=== PATIENT | male | born 1965 | race Caucasian/White ===

== ENCOUNTER 2018-08-19 10:55 | Outpatient (CLI) | payer OTHER ==
--- NOTE | 2018-08-19 13:52 | RAD ---
FOUR VIEWS OF THE RIGHT KNEE: DATE: 08/19/2018. COMPARISON: None. HISTORY: Bilateral knee pain, knee popping. FINDINGS: There is severe medial compartment narrowing with subchondral sclerosis and osteophyte formation. Th ere is mild lateral compartment narrowing. There is moderate patellofemoral joint space narrowing an d osteophytosis. No acute fracture or dislocation. IMPRESSION: Multicompartment degenerative joint disease. No acute osseous abnormality. POS: [facility]
--- NOTE | 2018-08-19 13:52 | RAD ---
LEFT KNEE FOUR VIEWS: 08/19/2018 HISTORY: Arthritis. Knee popping. COMPARISON: None. FINDINGS: Four view examination of the left knee demonstrates severe medial compartment narrowing with subchond ral sclerosis and osteophyte formation. There is mild osteophyte formation of the lateral femoral co ndyle and lateral tibial plateau. No knee joint effusion, displaced fracture, or dislocation. There is moderate degenerative change of the patellofemoral interspace. IMPRESSION: Multicompartment degenerative joint disease. No acute osseous abnormality. POS: [facility]
== END 2018-08-19 10:56 | disposition home or self-care (01) ==
LOC: SCSRAD 10:55
PROVIDERS: ATTEND Family Medicine
DX: M17.0 Bilateral primary osteoarthritis of knee (principal)

== ENCOUNTER 2018-09-23 16:00 | Inpatient (IN) | payer OTHER, SELFPAY ==
[2018-09-23 16:28] LABS: #Eosinphils 0.2 thou/uL (0.0-0.7); #Monocytes 0.8 thou/uL (0.11-0.59); #Neutrophils 8.4 thou/uL (1.40-6.50); %Basophils 0.4 % (0.0-1.0); %Eosinophils 1.4 % (0.0-10.0); %Lymphocytes 17.6 % (21.0-51.0); %Monocytes 7.2 % (0.0-10.0); %Neutrophils 73.4 % (42.0-75.0); Mean Corpuscular HGB CONC 31.3 g/dL (32.0-36.0); Mean Corpuscular Hemoglobin 29.2 pg (27.0-31.0); Mean Corpuscular Volume 93.3 fL (78.0-98.0); Mean Platelet Volume 7.8 fL (7.4-10.4); Platelet Count 322 thou/uL (130-400); RBC Distribution Width 15.8 % (11.5-14.5); Red Blood Cell (RBC) Count 6.17 mill/uL (4.70-6.10); White Blood Cell (WBC) Count 11.4 thou/uL (4.8-10.8)
[2018-09-23] MEDS ORDERED: Nitroglycerin 2% Ointment 1 INCH/1 GM Packet ONE (16:33)
[2018-09-23] MEDS ORDERED: Furosemide 40 MG/4 ML VIAL ONE (16:33)
[2018-09-23 17:00] LABS: ALT (SGPT) 17 U/L (8-55); AST (SGOT) 42 U/L (5-34); Albumin 3.9 g/dL (3.5-5.0); Alkaline Phosphatase 93 U/L (40-150); Anion Gap 14 mmol/L (10-20); BUN (Urea Nitrogen) 25 mg/dL (8.4-25.7); Bilirubin, Total 0.5 mg/dL (0.2-1.2); CK (CPK) 71 U/L (30-200); Calc. Creatinine Clearance 0 mL/min (70-130); Calcium 9.8 mg/dL (7.8-10.44); Carbon Dioxide 32 mmol/L (22-29); Chloride 95 mmol/L (98-107); Estimated GFR-MDRD Greater than 90; Globulin 4.6 g/dL (2.4-3.5); Glucose 93 mg/dL (70-105); Potassium 5.4 mmol/L (3.5-5.1); Protein, Total 8.5 g/dL (6.0-8.3); Sodium 136 mmol/L (136-145)
--- NOTE | 2018-09-23 17:01 | RAD ---
CHEST ONE VIEW 09/23/18 HISTORY: Chest pain. COMPARISON: None. FINDINGS: Heart size is markedly enlarged. Multifocal right upper lobe and right lower lobe air space opacities . No pneumothorax, large effusion. Mild pulmonary venous congestion. IMPRESSION: 1. Cardiomegaly and mild pulmonary venous congestion. 2. Concern for possible superimposed infection right middle and right lower lobes. 3. Likely a small bilateral pleural effusion. POS: [facility]
[2018-09-23 18:08] LABS: Actual Bicarbonate (HCO3a) 36.4 mEq/L (22-28); Analyzer IN Cardio ER; Base Excess (BEa) 9.5 mEq/L (-2.0 to +3.0); CO2 Tension 56.1 mmHg (35.0-45.0); Calcium, Ionized 1.16 mmol/L (1.12-1.30); Carboxyhemoglobin (COHb) 1.6 gm% (0.0-3.0); Hemoglobin (Hb) 17.7 g/dL (14.0-18.0); O2 Tension (PaO2) 61.4 mmHg (80.0-100.0); Potassium - ABG Lab 4.11 mmol/L (3.70-5.30); pH, Arterial 7.43 (7.35-7.45)
[2018-09-23 18:11] LABS: Puncture Site RRA
[2018-09-23 18:12] LABS: ALV-art Gradient 53.855 (0-20)
[2018-09-23 18:33] LABS: Bilirubin Negative (Negative); Blood, Urine Negative (Negative); Clarity CLEAR (Clear); Glucose, Urine (Dipstick) Negative (Negative); Leukocyte Negative (Negative); Nitrite Negative (Negative); Protein, Urine (Dipstick) 100 mg/dL (Neg-Trace); pH, Urine 7.5 (5.0-9.0)
[2018-09-23 18:36] LABS: Bacteria/HPF None Seen HPF (None Seen); Hyaline Casts/LPF 0-3 HYALINE CAST LPF (0-3 Hyaline); Pathc Cast-AUWi Flag 0.14 (0-2.49); RBC/HPF 0-3 HPF (0-3); Squamous Epithelial 0-3 HPF (0-3); WBC/HPF 0-3 HPF (0-3)
[2018-09-23] MEDS ORDERED: Nitroglycerin 2% Ointment 1 INCH/1 GM Packet TOP SCH (23:59)
[2018-09-24] MEDS ORDERED: Ondansetron ODT 4 MG TAB SL PRN (00:08)
[2018-09-24] MEDS ORDERED: Ondansetron PF 4 MG/2 ML Vial IVP PRN (00:08)
[2018-09-24] MEDS: Meloxicam 15 MG TAB PO SCH (08:33)
[2018-09-24] MEDS: Lisinopril/Hydrochlorothiazide 20 mg/12.5 mg Tablet PO SCH (08:33)
--- NOTE | 2018-09-24 10:55 | HP ---
CHIEF COMPLAINT: Shortness of breath and cough. HISTORY OF PRESENT ILLNESS: The patient is a 53-year-old morbidly obese man, who is admitted to the hospital with several days history of increased shortness of breath and cough, which is mostly nonproductive. He denied any fever or chills. Apparently recently, he developed some nasal congestion and some sinus headache over the last few days. Also, he went to see his doctor, Dr. Hardin, for testicular swelling a few days ago and apparently, his O2 saturation was low in the 80s. When he presented to the emergency room, his pulse oximetry was 86%. He denied any chest pain. He denied any other significant issues at this point. PAST MEDICAL HISTORY: Hypertension. PAST SURGICAL HISTORY: None. MEDICATIONS: 1. Metoprolol succinate 100 mg once a day. 2. Lisinopril and hydrochlorothiazide 10/12.5 mg tablets one a day. 3. Furosemide 20 mg once a day. 4. Meloxicam 15 mg once a day. 5. Tramadol 50 mg, unknown frequency. 6. Amlodipine 10 mg once a day. 7. Benzonatate 100 mg, unknown frequency. ALLERGIES: NONE. SOCIAL HISTORY: He has used to smoke, but quit more than 10 years ago. He drinks socially. He does not use any illicit drugs. FAMILY HISTORY: Mother is healthy. Father had AR. REVIEW OF SYSTEMS: CONSTITUTIONAL: No fever, no chills. EYES: No photophobia. No discharge. ENT: No epistaxis. No stridor. CARDIOVASCULAR: No chest pain. No syncope. RESPIRATORY: Positive for cough and shortness of breath. GASTROINTESTINAL: Negative for diarrhea and constipation. MUSCULOSKELETAL: Positive for bilateral knee pain. SKIN: Negative for rash or erythema. NEUROLOGIC: Negative for focal weakness. Positive for headaches. HEMOLYMPHATIC: Negative for clotting abnormalities. PHYSICAL EXAMINATION: VITAL SIGNS: Blood pressure is 147/70, pulse is 75, respiratory rate is 20, temperature is 98.2, pulse oximetry is 92% on 2 L by nasal cannula. GENERAL: He is very obese man. His BMI is 70.7. HEENT: His head is atraumatic and normocephalic. Eyes are PERRLA. Sclerae are nonicteric. Conjunctivae pinkish. Oral mucosa is moist. NECK: Supple, obese. LUNGS: Clear, but breath sounds diminished at both bases. HEART: S1, S2 distant. No S3. No S4. ABDOMEN: Obese, soft, nontender. EXTREMITIES: 2 to 3+ peripheral edema with venous stasis bilaterally, tender to touch. Pulses not palpable secondary to significant swelling. NEUROLOGICAL EXAMINATION: He is alert and oriented x4. There is no any sensory or motor deficits present. Cranial nerves are intact. LABORATORY DATA: Showed a white count of 11.4, hemoglobin of 18.0, hematocrit 57.6, platelet count 322. ABGs, pH of 7.43, pCO2 56.1, pO2 61.4. A-a gradient 53.8. Sodium of 136, potassium 5.4, chloride 95, CO2 of 32, BUN 25, creatinine 0.77, glucose 93, AST 42, BNP 171, globulin 4.6, total protein 8.5. Urinalysis, more than 100 of protein, 2.0 urobilinogen and the rest of UA within normal limits. EKG showed normal sinus rhythm and incomplete right bundle-branch block. Chest x-ray showed bilateral small pleural effusion and right lower lobe infiltrate. IMPRESSION: 1. Dyspnea with cough, suspicion for right lower lobe pneumonia. The patient received levofloxacin in the emergency room. We will continue that antibiotic 750 mg IV piggyback q.24 hours. 2. Anasarca with pleural effusion bilaterally, questionable congestive heart failure and cardiac etiology. We will start him on Lasix 40 IV push every 12 hours. We will get Cardiology consult and echocardiogram. 3. Hypertension. We will start his home medications. 4. Hyperkalemia, mild. 5. Respiratory failure with hypoxia and hypercapnia. We will obtain Pulmonary consultation. Most likely, he has hypercapnia related to his obesity. Will have albuterol and Atrovent p.r.n. q.4 hours. Job ID: [id number]
[2018-09-24] MEDS: Furosemide 40 MG/4 ML VIAL SLOW IVP SCH (14:17)
--- NOTE | 2018-09-24 16:12 | CON ---
DATE OF CONSULTATION: 09/24/2018 CONSULTING PHYSICIAN: Diogenes Zendejas MD REASON FOR CONSULTATION: Pneumonia versus CHF. HISTORY OF PRESENT ILLNESS: The patient is a 53-year-old male, who came to the hospital with shortness of breath that started just before [place] of last year. He went to his doctor yesterday for swelling in his testicular area. He was noted to be hypoxic and he was subsequently sent over here. He says he has had a low-grade subjective fever. He has been coughing up some purulent secretions. PAST MEDICAL HISTORY: 1. Morbid obesity. 2. Hypertension. PAST SURGICAL HISTORY: None. MEDICATIONS: Prior to admission; 1. Metoprolol 100 mg daily. 2. Lisinopril/hydrochlorothiazide 10/12.5 one tablet daily. 3. Furosemide 20 mg daily. 4. Meloxicam 50 mg daily. 5. Tramadol 50 mg as needed. 6. Amlodipine 10 mg daily. 7. Tessalon Perles 100 mg as needed. ALLERGIES: NONE. SOCIAL HISTORY: Quit smoking about 10 years ago. Occasionally drinks alcohol. He works as a business specialist. Does not use any illicit drugs. FAMILY MEDICAL HISTORY: Remarkable for heart disease in his father. REVIEW OF SYSTEMS: Twelve-point review of systems is negative except for the cough, pulmonary congestion, and testicular swelling. PHYSICAL EXAMINATION: VITAL SIGNS: Temperature 98.1, pulse 81, respirations 16, O2 sat 92% on 3 L, and blood pressure 154/81. The patient is 5 feet and 7 inches, weighs 451 pounds, and BMI of 70.7. HEENT: He has a class IV plus Mallampati airway. NECK: Without adenopathy or JVD. LUNGS: Diminished breath sounds globally, particularly in the bases. CARDIAC: S1 and S2, regular without murmur. ABDOMEN: Morbidly obese. GENITOURINARY: His scrotum is severely edematous. EXTREMITIES: He has 4+ edema from his knees downward. LABORATORY DATA: White blood cell count 11.4, hematocrit 57.6, and platelet count 322. PH of 7.43, pCO2 of 56, and pO2 of 61. Sodium 136, potassium 5.4, chloride 95, CO2 of 32, BUN 25, creatinine 0.7, and glucose 93. IMAGING DATA: His chest x-ray has poor penetration. There may be a right lower lobe infiltrate. ASSESSMENT: 1. Morbid obesity. 2. Obstructive sleep apnea/Pickwickian syndrome. 3. Probable right-sided heart failure with development of anasarca. 4. Possible right lower lobe pneumonia. RECOMMENDATIONS: 1. I agree with treatment of antibiotics. 2. I agree with diuretics. 3. He will need a sleep study performed as an outpatient as his probability of sleep apnea is quite high. 4. I agree with echocardiogram. 5. We will be happy to follow with you on this case. TIME SPENT: Total time spent with the patient, 50 minutes. Job ID: [id number]
[2018-09-24] MEDS: traMADol HCl 50 MG TAB PO PRN (17:52)
[2018-09-24] MEDS: Amlodipine 10 MG TAB PO SCH ×2 (20:23→23:15)
[2018-09-25] MEDS: Furosemide 40 MG/4 ML VIAL SLOW IVP SCH ×2 (05:36→13:55)
[2018-09-25] MEDS: Meloxicam 15 MG TAB PO SCH (08:43)
[2018-09-25] MEDS: Lisinopril/Hydrochlorothiazide 20 mg/12.5 mg Tablet PO SCH (08:43)
[2018-09-25] MEDS: traMADol HCl 50 MG TAB PO PRN (08:43)
[2018-09-25 10:35] LABS: #Eosinphils 0.1 thou/uL (0.0-0.7); #Lymphocytes 1.5 thou/uL (1.20-3.40); #Monocytes 0.6 thou/uL (0.11-0.59); #Neutrophils 9.3 thou/uL (1.40-6.50); %Basophils 0.3 % (0.0-1.0); %Eosinophils 1.1 % (0.0-10.0); %Lymphocytes 13.3 % (21.0-51.0); %Monocytes 5.1 % (0.0-10.0); %Neutrophils 80.1 % (42.0-75.0); Hemoglobin 17.1 g/dL (14.0-18.0); Mean Corpuscular HGB CONC 31.7 g/dL (32.0-36.0); Mean Corpuscular Hemoglobin 29.5 pg (27.0-31.0); Mean Platelet Volume 7.1 fL (7.4-10.4); Platelet Count 270 thou/uL (130-400); RBC Distribution Width 15.4 % (11.5-14.5); Red Blood Cell (RBC) Count 5.78 mill/uL (4.70-6.10); White Blood Cell (WBC) Count 11.5 thou/uL (4.8-10.8)
--- NOTE | 2018-09-25 10:36 | PRG ---
DATE OF SERVICE: 09/25/2018 SUBJECTIVE: Continue to complain of scrotal edema. He states his breathing is better. OBJECTIVE: VITAL SIGNS: His temperature is 97.7, pulse 80, respirations 18, O2 saturation 92% on 4 L, and blood pressure 133/72. Total intake 1200 and output 4100. HEENT: Unremarkable. NECK: No JVD. CHEST: Clear anteriorly. CARDIAC: S1 and S2. Regular. ABDOMEN: Soft. EXTREMITIES: 4+ edema. He also has significant scrotal edema. LABORATORY DATA: No new labs were done today. His echocardiogram showed an EF of about 60% with normal right atrium size and trace tricuspid regurgitation. ASSESSMENT: Anasarca probably related to obesity and diastolic heart dysfunction. I doubt he has much in the way of pneumonia, but it is hard to tell based on his body habitus. PLAN: 1. Continue Levaquin. 2. Emphasize diuresis. 3. Increase activity as tolerated. Job ID: [id number]
[2018-09-25 10:47] LABS: Anion Gap 15 mmol/L (10-20); BUN (Urea Nitrogen) 18 mg/dL (8.4-25.7); Calc. Creatinine Clearance 306 mL/min (70-130); Calcium 9.4 mg/dL (7.8-10.44); Carbon Dioxide 34 mmol/L (22-29); Chloride 93 mmol/L (98-107); Estimated GFR-MDRD Greater than 90; Glucose 123 mg/dL (70-105); Potassium 4.3 mmol/L (3.5-5.1); Sodium 138 mmol/L (136-145)
--- NOTE | 2018-09-25 12:01 | PDOC.CTH ---
Cardiology Progress Note - Subjective The pt seen and examined. No overnight events. No cardiac complaints. - Objective Vital Signs Temp Pulse Resp BP BP Pulse Ox 09/25/18 11:40 68 24 H 09/25/18 09:12 92 L 09/25/18 08:43 80 133/72 09/25/18 08:37 97.7 F 80 18 133/72 92 L 09/25/18 07:42 90 L 09/25/18 07:36 85 24 H 90 L 09/25/18 05:30 98.8 F 74 16 129/73 92 L 09/25/18 02:05 76 20 90 L Weight 440 lb 4.8 oz 09/24/18 09/25/18 09/26/18 06:59 06:59 06:59 Intake Total 110 1200 Output Total 2650 4100 Balance -2540 -2900 - Physical Examination General/Neuro: alert & oriented x3 Neck: no JVD present Lungs: CTA (diminished at bases) Heart: RRR Abdomen: soft Extremities: other: (3-4+ pitting BLE edema with discoloration and oozing) - Telemetry Telemetry Rhythm: SR 60s - Labs Result Diagrams: 09/25/18 10:28 09/25/18 10:28 Troponin/CKMB Troponin I Less than 0.010 ng/mL (< 0.028) 09/23/18 16:18 - Assessment/Plan 1. Acute on Chronic diastolic HF - Echo on 09/24/2018 showed EF 60%. Breathing slightly better today. cont diuretic. 2. HTN - stable 3. s/p bradycardia possible 2/2 sleep apnea - several episodes of bradycardia during last night. May need Sleep study as outpt. MAR reviewed Pt. seen and eval. by me. I agree with the A/P by the APPLIQUER ZIGZAG. Chest clear. RRR. Diuresing. Likely that a good portion of his lower extremity edema is due to his morbid obesity. Review of Systems - Review of Systems Constitutional: reports: no symptoms reported EENTM: reports: no symptoms reported Respiratory: reports: no symptoms reported Cardiac (ROS): reports: no symptoms reported ABD/GI: reports: no symptoms reported : reports: no symptoms reported Musculoskeletal: reports: no symptoms reported Skin: reports: no symptoms reported
--- NOTE | 2018-09-25 12:15 | PRG ---
DATE OF SERVICE: 09/25/2018 SUBJECTIVE: The patient is seen and examined at bedside. He feels slightly better. He goes to the bathroom to urinate a lot. His shortness of breath improved. OBJECTIVE: VITAL SIGNS: Blood pressure is 133/72, pulse 68, temperature 97.7, maximal temperature is 99.6, respiratory rate is 24, and O2 saturation is 92% on 4 L by nasal cannula. HEAD: Atraumatic and normocephalic. EYES: PERRLA. Sclerae are nonicteric. NECK: Supple, obese. LUNGS: Breath sounds diminished at both bases. A few crackles bilaterally at both bases. No wheezing. HEART: S1 and S2, distant. No S3. No S4. ABDOMEN: Obese, nontender. : Scrotum is swollen. EXTREMITIES: Lower extremities presented with massive chronic edema with venous stasis bilaterally, similar. NEUROLOGIC: He is alert and oriented x4. There are no any motor deficits. LABORATORY DATA: Labs showed white count of 11.5, hemoglobin hematocrit 53.7, and platelet count 270,000. Sodium of 138, potassium 4.3, chloride 93, CO2 of 34, glucose 123, and calcium 9.4. Microbiology; urine, no growth in 24 hours. Blood cultures negative x2. Echocardiogram showed ejection fraction of the left ventricle visually estimated at 60%. Normal right ventricle cavity. Mildly dilated left atrium. Normal right atrium. Normal mitral valve. Normal aortic valve. Trace tricuspid regurgitation. IMPRESSION: 1. Dyspnea with cough. It is felt to be secondary to fluid overload and body habitus. His echo looks quite normal. He does not have any congestive heart failure. Also, pneumonia is questionable in the right lower lobe, most likely infiltrate, which was seen on the chest x-ray and is representing some fluid. He diuresed more than 4000 mL over the last 24 hours. He feels better. Cardiology is considering to cut back on diuresis. 2. Anasarca, as mentioned above. 3. Hypertension. 4. Hyperkalemia, mild. 5. Respiratory failure with hypoxia and hypercapnia secondary to #1. Job ID: [id number]
[2018-09-25] MEDS: Amlodipine 10 MG TAB PO SCH (20:02)
--- NOTE | 2018-09-26 02:30 | CON ---
DATE OF CONSULTATION: PRIMARY CARE DOCTOR: Dr. Hardin. PRIMARY PATIENT NAVIGATOR: Dr. Latosha Levine. REFERRING DOCTOR: Walter Enriquez MD REASON FOR CARDIOLOGY CONSULT: Fluid overload. HISTORY OF PRESENT ILLNESS: Mr. Elliott is a 53-year-old male with significant history of hypertension and morbid obesity. The patient started having feeling of cold-like symptoms since last week. The patient followed up with primary care doctor this Wednesday and the patient received a steroid shot and antibiotic, and by the next day, Wednesday, he started having swelling to his scrotum and the patient followed up with primary care doctor again and the patient was instructed to present to the emergency department for fluid overload and worsening of his shortness of breath. The patient received Lasix 40 mg IV push at the ER and Levaquin and aspirin 325 mg p.o.; however, he was still complained of feeling fatigued and productive cough. The patient also complained of worsening of fatigue and dyspnea on exertion. He could not walk more than 4 to 5 feet without taking breath or rest. At night, when he laid down, he noticed he is having worsening cough, but he could sleep on the supine position at night. He also has noticed his leg has more swelling lately since last week. He has a medical history of hypertension; however, he was never admitted to the hospital and he never had a cardiac workup before. PAST MEDICAL HISTORY: 1. Hypertension. 2. Peptic ulcer 25 years ago. PAST SURGICAL HISTORY: None. FAMILY HISTORY: The patient's father had a history of myocardial infarction and stent placement at the age of 60s, and he also had a history of hypertension; otherwise, the patient's mother and a sister have good health. SOCIAL HISTORY: He is and he is living with his . He has two children who are living well. He is a . He is former smoker, he quit 10 years ago. He used to smoke one pack a day. He drinks 1 to 2 times a month. He denied any illicit drug abuse. He is morbidly obese, but he can walk around the house, he can go to the bathroom himself with a cane or walker. He drinks one cup of coffee a day and one can of soda a day. ALLERGIES: NO KNOWN DRUG ALLERGIES. MEDICATIONS: 1. Metoprolol succinate 100 mg once a day. 2. Lisinopril/hydrochlorothiazide 10 mg/12.5 mg once a day. 3. Lasix 20 mg once a day. 4. Meloxicam 15 mg once a day. 5. Tramadol 50 mg every 6 hours as needed. 6. Amlodipine 10 mg once a day. REVIEW OF SYSTEMS: A 12-point review of systems unless otherwise mentioned in the HPI. PHYSICAL EXAMINATION: VITAL SIGNS: Blood pressure 143/83, temperature 98.7, pulse is 70s to 80s, sinus rhythm, respiratory rate 24, O2 saturation 92% with 3 L nasal cannula. The patient's O2 saturation went down to 83 with room air during the assessment. GENERAL: The patient alert and oriented x4, not in acute distress. He is morbidly obese. HEENT: Head; normocephalic, atraumatic. Eyes; extraocular muscle movement intact. ENT and mouth, oral and nasal mucosa are moist without lesion. NECK: Supple. Normal range of motion. No JVD. RESPIRATORY: Clear to auscultate bilaterally, but diminished at the bases, especially on the right side. CARDIOVASCULAR: Regular rate and rhythm. Normal S1 and S2. There is no S3, S4. No significant murmur obviously noted but due to obesity, it is really hard to auscultate. 2+ pulses in bilateral upper and lower extremities, but unable to check pulses in femoral and popliteal due to pain with movement of the leg. ABDOMEN: Obese, soft, nontender. No mass to palpate. Bowel sounds are present. SKIN: Warm and dry. EXTREMITIES: Lower extremities, there is discoloration to the below bilateral knees and blisters open to right lower extremity, but no drainage noted at this moment. MUSCULOSKELETAL: The patient able to move all extremities. They have 2 to 3 nonpitting edema to the bilateral lower extremities. GENITOURINARY: The patient's scrotum has swelling and pain to touch. NEUROLOGIC: The patient is alert and oriented x4. Nonfocal. PSYCHIATRIC: The patient's mood appropriate. LABORATORY DATA: WBC 11.4, hemoglobin 18.0, hematocrit 57.6, and platelets 322. Blood gas; bicarbonate 36.4, pH 7.43, pCO2 of 56.1, PO2 of 61.4. Sodium 136, potassium 5.4, BUN 25, creatinine 0.77, glucose 93, and calcium 9.8. AST 42 and ALT 17. Troponin is negative. BNP is 171.7. IMAGING STUDIES: The patient's chest x-ray shows cardiomegaly and mild pulmonary venous congestion, possible infection to the right middle and lower lobes, and small bilateral pleural effusion. The patient's x-ray to his knee shows multiple compartment degenerative joint disease. ASSESSMENT AND PLAN: 1. New-onset congestive heart failure with edema to the lower extremities; though with the Lasix 40 mg IV push, the patient's output is more than 2600. We would like to continue the current medication. The patient's echocardiogram is ordered and result is pending at this moment. The patient has been on the Lasix 40 mg IV push twice a day and ALEX inhibitor and metoprolol. 2. Possible right lower lobe pneumonia. The patient is on Levaquin, which is managed by primary care doctor. 3. Hypertension. The patient's blood pressure is trending down at this moment with current medication. We would like to continue to monitor. 4. Respiratory failure with hypoxia and hypercapnia. Pulmonary consult has been ordered by primary care doctor. 5. Morbid obesity. Weight management education was given to the patient and the patient would like to lose weight and possible gastric sleeve or some surgery for weight management. Thank you for allowing the Cardiology Service to participate in the care of this patient. We will follow along with the patient's care team and make further evaluation as appropriate. Job ID: [id number]
[2018-09-26] MEDS: Furosemide 40 MG/4 ML VIAL SLOW IVP SCH ×2 (06:05→15:30)
--- NOTE | 2018-09-26 08:12 | CON ---
DATE OF CONSULTATION: 09/24/2018 ADDENDUM: CARDIOLOGY CONSULTATION NOTE: INDICATIONS FOR CONSULTATION: This is a 53-year-old gentleman with shortness of breath due to morbid obesity and also upper respiratory tract infection. He has diffuse lower extremity edema and testicular swelling. We are asked to see him due to the volume overload what appears to be just a combination of morbid obesity and upper respiratory infection as well as possible pneumonia. Please refer to the notes dictated by nurse practitioner, Marisela Hollingsworth, for the past medical history, social history, family history, allergies, review of systems, and medications. This unfortunate 53-year-old gentleman has been short of breath sometime before [place]. He became worse. He was unable to even get to the emergency room. He became somewhat confused and had difficulty to make it to emergency room from the parking lot. He has noticed he has had lower extremity edema in the past, but became worse more recently and has also lower testicular swelling and said that he has had a low-grade fever. He has been coughing and most likely has bronchitis as well as pneumonia. When he came to the hospital here, we were asked to see him due to what was felt to be volume overload. He does have volume overload. This is due to morbid obesity probably and venous insufficiency most likely also associated with his morbid obesity. He also has history of hypertension, but otherwise denies any previous cardiac history. PHYSICAL EXAMINATION: GENERAL: Reveals a morbidly obese gentleman, almost 500 pounds, who is actually awake and alert. He is very pleasant. HEENT AND NECK: I could not hear any carotid bruits. Atraumatic. VITAL SIGNS: His vital signs are stable. Blood pressure was 115/61, temperature was 99.6, heart rate 65 which shows a sinus rhythm, and respiratory rate 24. CHEST: Clear to auscultation. I could not hear any significant rales, rhonchi , or wheezing at this time. CARDIOVASCULAR: Heart sounds are somewhat distant, but he has a normal S1, S2. I cannot hear any significant murmurs, heaves, thrills, bruits, or rubs. ABDOMEN: Morbid obesity. Has stria noted due to the morbid obesity, I cannot palpate any masses. He has no tenderness. He has significant edema of scrotal area and lower extremity edema with discoloration due to chronic venous changes. I cannot palpate pedal pulses. NEUROLOGIC: Neurologically, he appears to be intact. IMPRESSION: 1. Morbid obesity with subsequent problems associated with edema and most likely sleep apnea as well as the well known Pickwickian syndrome due to the morbid obesity. I have advised him to find some way to lose weight. 2. Probable pneumonia which is being treated by antibiotics. 3. Possible right-sided heart failure due to his pulmonary problems and some development of anasarca. We will need to aggressively try to diurese the patient, but also need to be careful not to over diurese him due to his pneumonia, but will need to encourage him at some point time to lose around 200 to 300 pounds. This will be very difficult for the patient. I did suggest that he undergo some type of gastric sleeve procedure in order to lose the weight if at all possible. At this time, I would continue the antibiotics. I would agree with diuresis with the Lasix or any other diuretic. Also I will await the results of the echocardiogram to ensure he does not have a cardiomyopathy. I believe this has already been performed and I will review the studies as soon as possible. 4. Hypertension. This appears to be relatively stable at this time. We will be more than happy to follow the patient with you at this time, but hopefully, he will improve with the present treatment. Job ID: [id number] [facility]
[2018-09-26] MEDS: Meloxicam 15 MG TAB PO SCH (08:47)
[2018-09-26] MEDS: Lisinopril/Hydrochlorothiazide 20 mg/12.5 mg Tablet PO SCH (08:47)
[2018-09-26] MEDS: traMADol HCl 50 MG TAB PO PRN ×2 (08:48→22:30)
--- NOTE | 2018-09-26 10:00 | PRG ---
DATE OF SERVICE: 09/26/2018 SUBJECTIVE: The patient is still short of breath. He is concerned about having to wear the oxygen. He says his scrotum has reduced in size. OBJECTIVE: VITAL SIGNS: Temperature 98.9, pulse 66, blood pressure 138/69, O2 saturation 98%. Intake for 24 hours 250, output 4450. Weight 433 pounds. HEENT: Unremarkable. NECK: No JVD. LUNGS: Diminished breath sounds bilaterally. CARDIAC: S1 and S2. Regular. ABDOMEN: Soft. EXTREMITIES: No edema. LABORATORY DATA: Labs, not done today. ASSESSMENT: Significant anasarca, probably related to cor pulmonale, perhaps sleep apnea, diastolic cardiac dysfunction. PLAN: I think he needs continued IV diuretics and this may need to continue over the next week or so. I would be very adverse to letting him go home until his hypoxemia is better. Job ID: [id number]
[2018-09-26] MEDS: Polyethylene Glycol 3350 17 GM Packet PO SCH (12:04)
--- NOTE | 2018-09-26 14:51 | PRG ---
DATE OF SERVICE: 09/26/2018 SUBJECTIVE: The patient was seen and examined at bedside. He feels somewhat better. His shortness of breath was improved, and he does not have much cough anymore. OBJECTIVE: VITAL SIGNS: Blood pressure is 122/66, pulse is 63, temperature is 98.3, respiratory rate is 20, and O2 saturation is 95% on 4 L by nasal cannula. HEENT: His head is atraumatic and normocephalic. Eyes, PERRLA. Sclerae nonicteric. NECK: Obese. CHEST: Breath sounds diminished at both bases with dullness on percussion at both bases with crackles bilaterally. HEART: S1, S2 distant. No S3. No S4. ABDOMEN: Obese, soft, and nontender. EXTREMITIES: 2+ to 3+ chronic peripheral edema along with chronic venous stasis. LABORATORY DATA: Pending. DIAGNOSTIC DATA: Echocardiogram, as mentioned above. IMPRESSION: 1. Probable diastolic cardiac dysfunction, resulting in significant anasarca. We will continue IV Lasix. We will get PT. 2. Hypercapnic hypoxic respiratory failure. Continue O2 4 L by nasal cannula. 3. Constipation. We will start him on MiraLAX 17 g once a day. 4. Hypertension, stable. We will continue diuresis. We will continue antibiotic for now as recommended by scheduler maintenance. Continue DuoNebs. We will keep checking his BMP and supplement potassium and magnesium. Job ID: [id number]
--- NOTE | 2018-09-26 18:43 | PDOC.CTH ---
Cardiology Progress Note - Subjective The pt seen and examined. No overnight events. No cardiac complaints. He is on 4LNC and SCHWARTZ with mild exertion still. - Objective Vital Signs Temp Pulse Resp BP BP BP Pulse Ox 09/26/18 15:07 76 20 09/26/18 15:00 98.5 F 69 18 101/57 L 95 09/26/18 11:49 68 20 09/26/18 11:39 98.3 F 63 20 122/60 95 09/26/18 08:47 66 138/69 09/26/18 07:17 98.9 F 66 20 138/69 98 09/26/18 07:13 95 09/26/18 07:09 78 20 95 Weight 433 lb 4.8 oz 09/25/18 09/26/18 09/27/18 06:59 06:59 06:59 Intake Total 1200 250 900 Output Total 4100 4450 1850 Balance -2900 -4200 -950 - Physical Examination General/Neuro: alert & oriented x3 Neck: no JVD present Lungs: other: (very diminished at bases) Heart: RRR Abdomen: soft Extremities: other: (4+ pitting BLE edema) - Telemetry Telemetry Rhythm: SR - Labs Result Diagrams: 09/25/18 10:28 09/25/18 10:28 Troponin/CKMB Troponin I Less than 0.010 ng/mL (< 0.028) 09/23/18 16:18 - Assessment/Plan 1. Acute on Chronic diastolic HF - Echo on 09/24/2018 showed EF 60%. Breathing slightly better today. cont diuretic. 2. HTN - stable 3. s/p bradycardia possible 2/2 sleep apnea - several episodes of bradycardia during last night. May need Sleep study as outpt. MAR reviewed * Likely that a good portion of his lower extremity edema is due to his morbid obesity. Pt. seen and eval. by me. I agree with the A/P by the SENIOR TECHNICAL SUPPORT ANALYST. Chest clear. RRR. Edema but improved. Will need to be careful not to overdiurese the pt. Review of Systems - Review of Systems Constitutional: reports: no symptoms reported EENTM: reports: no symptoms reported Respiratory: reports: see HPI Cardiac (ROS): reports: no symptoms reported ABD/GI: reports: no symptoms reported : reports: no symptoms reported Musculoskeletal: reports: no symptoms reported
[2018-09-26] MEDS: Amlodipine 10 MG TAB PO SCH (22:35)
[2018-09-27] MEDS: Furosemide 40 MG/4 ML VIAL SLOW IVP SCH ×2 (05:48→14:05)
[2018-09-27] MEDS: traMADol HCl 50 MG TAB PO PRN ×2 (07:58→16:51)
[2018-09-27] MEDS: Lisinopril/Hydrochlorothiazide 20 mg/12.5 mg Tablet PO SCH (07:59)
[2018-09-27] MEDS: Meloxicam 15 MG TAB PO SCH (07:59)
--- NOTE | 2018-09-27 09:56 | PRG ---
DATE OF SERVICE: SUBJECTIVE: Today, he says he is about the same as he was yesterday. He had no acute complaints. OBJECTIVE: VITAL SIGNS: Temperature 98.5, pulse 81, respirations 18, O2 saturation 94%, and blood pressure 163/80. GENERAL: He is a morbidly obese male in no acute distress. HEENT: Unremarkable. NECK: No JVD. CHEST: Clear. CARDIAC: S1, S2. Regular. ABDOMEN: Soft. EXTREMITIES: Edematous. LABORATORY DATA: Sodium 130, potassium 4.3, BUN 18, creatinine 0.7, glucose 123. White blood cell count 11.5, hematocrit 53.7, and platelet count 270. ASSESSMENT: Anasarca with profound diuresis since admission. PLAN: Continue IV diuretics. He will need a sleep study as an outpatient. Job ID: [id number]
[2018-09-27] MEDS: Polyethylene Glycol 3350 17 GM Packet PO SCH (12:09)
--- NOTE | 2018-09-27 12:14 | PDOC.CTH ---
Cardiology Progress Note - Subjective The pt seen and examined. No overnight events. No cardiac complaints. His BLE edema is improving slowly. - Objective Vital Signs Temp Pulse Resp BP BP Pulse Ox 09/27/18 11:49 98.9 F 72 17 116/56 L 97 09/27/18 10:53 68 20 95 09/27/18 08:00 98.5 F 81 18 163/80 H 94 L 09/27/18 07:59 76 09/27/18 06:59 93 L 09/27/18 06:56 76 20 93 L 09/27/18 04:00 97.8 F 76 18 134/97 H 09/27/18 01:56 77 16 95 Weight 429 lb 09/26/18 09/27/18 09/28/18 06:59 06:59 06:59 Intake Total 250 1274 Output Total 4450 3075 Balance -4200 -1801 - Physical Examination General/Neuro: alert & oriented x3 Neck: no JVD present Lungs: CTA (diminished at bases) Heart: RRR Abdomen: soft Extremities: other: (No edema) - Telemetry Telemetry Rhythm: SR - Labs Result Diagrams: 09/28/18 06:05 09/28/18 06:05 Troponin/CKMB Troponin I Less than 0.010 ng/mL (< 0.028) 09/23/18 16:18 - Assessment/Plan 1. Acute on Chronic diastolic HF - Echo on 09/24/2018 showed EF 60%. Still on 4LNC, but Breathing better today per the pt. cont diuretic. 2. HTN - stable 3. s/p bradycardia possible 2/2 sleep apnea - several episodes of bradycardia during last night. May need Sleep study as outpt. MAR reviewed * Likely that a good portion of his lower extremity edema is due to his morbid obesity. Pt. seen and eval. by me. I agree with the A/P by the OCCUPATIONAL THERAPY DIRECTOR.Continue diuresis. He has lost almost 20#. Review of Systems - Review of Systems Constitutional: reports: no symptoms reported EENTM: reports: no symptoms reported Respiratory: reports: no symptoms reported Cardiac (ROS): reports: no symptoms reported ABD/GI: reports: no symptoms reported : reports: no symptoms reported
--- NOTE | 2018-09-27 16:17 | PDOC.PN ---
- Subjective Encounter Start Date: 09/27/18 Encounter Start Time: 16:15 Gradually improving in regard to BLE and SCHWARTZ. Presently 90% on 4L per NC. Complains of dry and itching BLE, requests lotion. - Objective Vital Signs & Weight: Vital Signs (12 hours) Temp Pulse Pulse Pulse Resp BP BP 09/27/18 15:38 98.8 F 64 15 09/27/18 14:54 73 20 09/27/18 14:16 76 73 129/65 142/69 H 09/27/18 11:49 98.9 F 72 17 09/27/18 10:53 68 20 09/27/18 08:00 98.5 F 81 18 09/27/18 07:59 76 09/27/18 06:59 09/27/18 06:56 76 20 BP Pulse Ox Pulse Ox Pulse Ox 09/27/18 15:38 105/56 L 90 L 09/27/18 14:54 90 L 09/27/18 14:16 92 L 91 L 09/27/18 11:49 116/56 L 97 09/27/18 10:53 95 09/27/18 08:00 163/80 H 94 L 09/27/18 07:59 09/27/18 06:59 93 L 09/27/18 06:56 93 L Weight Weight 429 lb I&O: 09/26/18 09/27/18 09/28/18 06:59 06:59 06:59 Intake Total 250 1274 Output Total 4450 3075 Balance -4200 -1801 Result Diagrams: 09/25/18 10:28 09/25/18 10:28 Dx/Plan (1) Acute on chronic diastolic (congestive) heart failure Code(s): I50.33 - ACUTE ON CHRONIC DIASTOLIC (CONGESTIVE) HEART FAILURE Status : Acute Comment: Continue diuresis. Ordered lab for AM. Echo 09/24/18 EF 60%. Patient presently on levaquin, consider discontinuation tomorrow after Day 5. (2) HTN (hypertension) Code(s): I10 - ESSENTIAL (PRIMARY) HYPERTENSION Status: Acute Qualifiers: Hypertension type: essential hypertension Qualified Code(s): I10 - Essential (primary) hypertension (3) Bradycardia Code(s): R00.1 - BRADYCARDIA, UNSPECIFIED Status: Acute Comment: In context of untreated RICHARD. I also discussed with him the need for sleep study, to reinforce education from other providers. (4) Morbid obesity with BMI of 40.0-44.9, adult Code(s): E66.01 - MORBID (SEVERE) OBESITY DUE TO EXCESS CALORIES; Z68.41 - BODY MASS INDEX (BMI) 40.0-44.9, ADULT Status: Chronic - Plan cont current plan of care, cordon catheter, PT/OT, incentive spirometry, out of bed/ambulate * Consider d/c levaquin tomorrow if ok with Pulmonary. * Lovenox for DVT prophylaxis. * AM labs * Wean oxygen as able, not on home oxygen prior to admission, presently on 4L. * Lotion to dry skin of BLE. Does not look like cellulitis, just chronic hyperemia.
[2018-09-27] MEDS: Amlodipine 10 MG TAB PO SCH (20:05)
[2018-09-28] MEDS: Furosemide 40 MG/4 ML VIAL SLOW IVP SCH ×3 (05:44→16:33)
[2018-09-28] MEDS: traMADol HCl 50 MG TAB PO PRN ×2 (06:25→15:51)
[2018-09-28 06:51] LABS: #Eosinphils 0.4 thou/uL (0.0-0.7); #Lymphocytes 1.2 thou/uL (1.20-3.40); #Monocytes 0.8 thou/uL (0.11-0.59); #Neutrophils 7.9 thou/uL (1.40-6.50); %Basophils 0.4 % (0.0-1.0); %Eosinophils 3.5 % (0.0-10.0); %Lymphocytes 11.7 % (21.0-51.0); %Monocytes 7.9 % (0.0-10.0); %Neutrophils 76.5 % (42.0-75.0); Hemoglobin 15.5 g/dL (14.0-18.0); Mean Corpuscular HGB CONC 31.3 g/dL (32.0-36.0); Mean Corpuscular Hemoglobin 29.2 pg (27.0-31.0); Mean Corpuscular Volume 93.3 fL (78.0-98.0); Mean Platelet Volume 7.8 fL (7.4-10.4); Platelet Count 183 thou/uL (130-400); RBC Distribution Width 14.9 % (11.5-14.5); White Blood Cell (WBC) Count 10.3 thou/uL (4.8-10.8)
[2018-09-28 07:05] LABS: BUN (Urea Nitrogen) 20 mg/dL (8.4-25.7); Calc. Creatinine Clearance 347 mL/min (70-130); Calcium 9.1 mg/dL (7.8-10.44); Estimated GFR-MDRD Greater than 90; Glucose 91 mg/dL (70-105)
[2018-09-28 07:15] LABS: Anion Gap 19 mmol/L (10-20); Carbon Dioxide 29 mmol/L (22-29); Chloride 91 mmol/L (98-107); Potassium 4.3 mmol/L (3.5-5.1); Sodium 135 mmol/L (136-145)
[2018-09-28] MEDS: Enoxaparin Sodium 40 MG/0.4 ML SYRINGE SC SCH (09:30)
[2018-09-28] MEDS: Meloxicam 15 MG TAB PO SCH (09:31)
[2018-09-28] MEDS: Lisinopril/Hydrochlorothiazide 20 mg/12.5 mg Tablet PO SCH (09:31)
--- NOTE | 2018-09-28 10:08 | PRG ---
DATE OF SERVICE: 09/28/2018 SUBJECTIVE: The patient is gradually improving. He had no acute complaints. OBJECTIVE: VITAL SIGNS: Temperature 97.7, pulse 70, respirations 20, O2 saturation 98% on 4 L, and blood pressure 132/63. His weight is 429. Of note, his admission weight was 451. HEENT: Unremarkable. NECK: No JVD. LUNGS: Clear. CARDIAC: S1 and S2, regular. ABDOMEN: Soft. EXTREMITIES: Edematous. LABORATORY DATA: White blood cell count 10.3, hematocrit 49.4, platelet count 183. Sodium 135, potassium 4.3, BUN 20, and creatinine 0.6. ASSESSMENT: 1. Anasarca secondary to diastolic cardiac dysfunction. 2. Probable underlying sleep apnea. PLAN: The patient will need to follow up as an outpatient for sleep study. Continue diuresis with hopes that he can be converted over to oral therapy. No further Pulmonary recommendations. We will sign off the case. Please recall if further assistance needed. Job ID: [id number]
[2018-09-28] MEDS: Polyethylene Glycol 3350 17 GM Packet PO SCH (12:26)
--- NOTE | 2018-09-28 13:32 | PDOC.CTH ---
Cardiology Progress Note - Subjective The pt seen and examined. No overnight events. No cardiac complaints. - Objective Vital Signs Temp Pulse Resp BP BP Pulse Ox 09/28/18 11:44 97.3 F L 68 20 114/58 L 94 L 09/28/18 10:34 72 16 91 L 09/28/18 09:31 70 09/28/18 07:11 97.4 F L 70 20 132/63 98 09/28/18 07:05 90 L 09/28/18 07:04 81 20 90 L 09/28/18 04:00 97.9 F 81 18 133/60 94 L 09/28/18 02:24 77 20 90 L Weight 429 lb 3.2 oz 09/27/18 09/28/18 09/29/18 06:59 06:59 06:59 Intake Total 1274 1604 Output Total 3077 1615 1400 Balance -1923 -1205 -5505 - Physical Examination General/Neuro: alert & oriented x3 Neck: no JVD present Lungs: CTA Heart: RRR Abdomen: soft Extremities: other: (4+ pitting and discoloration to BLE) - Labs Result Diagrams: 09/28/18 06:05 09/28/18 06:05 Troponin/CKMB Troponin I Less than 0.010 ng/mL (< 0.028) 09/23/18 16:18 - Assessment/Plan 1. Acute on Chronic diastolic HF - Echo on 09/24/2018 showed EF 60%. Still on 3LNC, but Breathing better today per the pt. cont diuretic. 2. HTN - stable 3. s/p bradycardia possible 2/2 sleep apnea - several episodes of bradycardia during last night. May need Sleep study as outpt. MAR reviewed * Likely that a good portion of his lower extremity edema is due to his morbid obesity. Pt. seen and eval. by me. I agree with the A/P by the BELT FIXER. Overall cardiac status appears stable. He is not a candidate for other cardiac evaluations. I have suggested he consider drastic means of decreasing his weight. I will sign off. he can f/u in the office in 4-6 weeks. Review of Systems - Review of Systems Constitutional: reports: no symptoms reported EENTM: reports: no symptoms reported Respiratory: reports: no symptoms reported Cardiac (ROS): reports: no symptoms reported ABD/GI: reports: no symptoms reported : reports: no symptoms reported Musculoskeletal: reports: no symptoms reported Skin: reports: no symptoms reported Neurological: reports: no symptoms reported
--- NOTE | 2018-09-28 16:08 | PDOC.PN ---
- Subjective Encounter Start Date: 09/28/18 Encounter Start Time: 16:06 Subjective: feels much better. discussed diagnosis and care plan -: denies nay CP.still easily winded when goe sto bathroom -: afraid to get Johnson removed - Objective MAR Reviewed: Yes Vital Signs & Weight: Vital Signs (12 hours) Temp Pulse Resp BP Pulse Ox 09/28/18 15:33 98.8 F 71 12 116/59 L 94 L 09/28/18 14:48 73 16 91 L 09/28/18 11:44 97.3 F L 68 20 114/58 L 94 L 09/28/18 10:34 72 16 91 L 09/28/18 09:31 70 09/28/18 07:11 97.4 F L 70 20 132/63 98 09/28/18 07:05 90 L 09/28/18 07:04 81 20 90 L Weight Weight 429 lb 3.2 oz I&O: 09/27/18 09/28/18 09/29/18 06:59 06:59 06:59 Intake Total 1274 1604 Output Total 3075 3525 1400 Balance -1801 -1921 -1400 Result Diagrams: 09/28/18 06:05 09/28/18 06:05 Additional Labs: Microbiology 09/23/18 18:18 Nasal swab Influenza Types A,B Direct EIA - Final 09/23/18 17:42 Urine clean catch Urine Culture - Final 09/23/18 17:33 Venous blood - Left Arm Blood Culture - Preliminary NO GROWTH AT 48 HOURS 09/23/18 17:28 Venous blood - Right Arm Blood Culture - Preliminary NO GROWTH AT 48 HOURS Phys Exam - Physical Examination Constitutional: NAD HEENT: PERRLA, moist MMs, sclera anicteric, oral pharynx no lesions Neck: no nodes, no JVD, supple, full ROM Respiratory: no wheezing, no rales, no rhonchi, clear to auscultation bilateral Cardiovascular: RRR, no significant murmur Gastrointestinal: soft, non-tender, no distention, positive bowel sounds Musculoskeletal: no edema, pulses present Neurological: non-focal, normal sensation, moves all 4 limbs Psychiatric: normal affect, A&O x 3 Skin: no rash Dx/Plan (1) Acute on chronic diastolic (congestive) heart failure Code(s): I50.33 - ACUTE ON CHRONIC DIASTOLIC (CONGESTIVE) HEART FAILURE Status : Acute Comment: Continue diuresis. Echo 09/24/18 EF 60%. Patient presently on levaquin, ACC Stage C (2) Bradycardia Code(s): R00.1 - BRADYCARDIA, UNSPECIFIED Status: Acute Comment: In context of untreated RICHARD. I also discussed with him the need for sleep study, to reinforce education from other providers. (3) HTN (hypertension) Code(s): I10 - ESSENTIAL (PRIMARY) HYPERTENSION Status: Acute Qualifiers: Hypertension type: essential hypertension Qualified Code(s): I10 - Essential (primary) hypertension (4) Morbid obesity with BMI of 40.0-44.9, adult Code(s): E66.01 - MORBID (SEVERE) OBESITY DUE TO EXCESS CALORIES; Z68.41 - BODY MASS INDEX (BMI) 40.0-44.9, ADULT Status: Chronic - Plan continue antibiotics, PT/OT, respiratory therapy, incentive spirometry, out of bed/ambulate, DVT proph w/SCDs cont diuresis .excellent response. lost almost over 20lbs in 3 days -: discussed weight loss extensively & need for OP sleep study. -: taper lasix to PO.cont Lisinopril,BB. -: ECHo w EF preserved. -: monitor HR. also on levaquin,but better today * . Review of Systems - Review of Systems Constitutional: negative: fever, chills, sweats, weakness, malaise, other ENT: negative: Ear Pain, Ear Discharge, Nose Pain, Nose Discharge, Nose Congestion, Mouth Pain, Mouth Swelling, Throat Pain, Throat Swelling, Other Respiratory: negative: Cough, Dry, Shortness of Breath, Hemoptysis, SOB with Excertion, Pleuritic Pain, Sputum, Wheezing Cardiovascular: negative: chest pain, palpitations, orthopnea, paroxysmal nocturnal dyspnea, edema, light headedness, other Gastrointestinal: negative: Nausea, Vomiting, Abdominal Pain, Diarrhea, Constipation, Melena, Hematochezia, Other Genitourinary: negative: Dysuria, Frequency, Incontinence, Hematuria, Retention , Other Musculoskeletal: negative: Neck Pain, Shoulder Pain, Arm Pain, Back Pain, Hand Pain, Leg Pain, Foot Pain, Other Neurological: negative: Weakness, Numbness, Incoordination, Change in Speech, Confusion, Seizures, Other - Medications/Allergies Allergies/Adverse Reactions: Allergies Allergy/AdvReac Type Severity Reaction Status Date / Time No Known Drug Allergies Allergy Verified 09/23/18 19:42 Medications: Current Medications Albuterol/Ipratropium (Duoneb) 3 ml NEB [id number] [facility] Last Admin: 09/28/18 14:48 Dose: 3 ml Amlodipine Besylate (Norvasc) 10 mg PO HS [facility] Last Admin: 09/27/18 20:05 Dose: 10 mg Enoxaparin Sodium (Lovenox) 40 mg SC 0900 [facility] Last Admin: 09/28/18 09:30 Dose: 40 mg Furosemide (Lasix) 40 mg SLOW IVP 0600,1400 [facility] Last Admin: 09/28/18 15:38 Dose: 40 mg Lisinopril/HCTZ (Prinizide 20-12.5) 1 tab PO DAILY [facility] Last Admin: 09/28/18 09:31 Dose: 1 tab Levofloxacin 750 mg/ Device 150 mls @ 100 mls/hr IVPB Q24HR [facility] Last Admin: 09/28/18 15:37 Dose: 150 mls Meloxicam (Mobic) 15 mg PO DAILY [facility] Last Admin: 09/28/18 09:31 Dose: 15 mg Metoprolol Succinate (Toprol Xl) 100 mg PO DAILY [facility] Last Admin: 09/28/18 09:31 Dose: 100 mg Polyethylene Glycol (Miralax) 17 gm PO 1200 [facility] Last Admin: 09/28/18 12:26 Dose: 17 gm Sodium Chloride (Flush - Normal Saline) 10 ml IVF Q12HR [facility] Last Admin: 09/28/18 09:31 Dose: 10 ml Sodium Chloride (Flush - Normal Saline) 10 ml IVF PRN PRN PRN Reason: Saline Flush Last Admin: 09/28/18 05:44 Dose: 10 ml Tramadol HCl (Ultram) 50 mg PO Q6H PRN PRN Reason: Pain Last Admin: 09/28/18 15:51 Dose: 50 mg
[2018-09-28] MEDS: Amlodipine 10 MG TAB PO SCH (20:07)
[2018-09-29] MEDS: Furosemide 40 MG TAB PO SCH (08:10)
[2018-09-29] MEDS: Meloxicam 15 MG TAB PO SCH (08:11)
[2018-09-29] MEDS: Lisinopril/Hydrochlorothiazide 20 mg/12.5 mg Tablet PO SCH (08:11)
[2018-09-29] MEDS: Enoxaparin Sodium 40 MG/0.4 ML SYRINGE SC SCH (08:12)
[2018-09-29] MEDS: Polyethylene Glycol 3350 17 GM Packet PO SCH (11:17)
[2018-09-29] MEDS: traMADol HCl 50 MG TAB PO PRN (11:17)
[2018-09-29 13:05] VITALS: BMI 66.2
--- NOTE | 2018-09-29 14:49 | PDOC.PN ---
- Subjective Encounter Start Date: 09/29/18 Encounter Start Time: 14:47 Subjective: feels better but still needing oxygen,does not want home O2 -: stillw leg and scrotal swelling -: RN reports PAT - Objective MAR Reviewed: Yes Vital Signs & Weight: Vital Signs (12 hours) Temp Pulse Resp BP BP BP Pulse Ox 09/29/18 14:20 90 20 09/29/18 11:11 80 20 09/29/18 11:04 98.4 F 67 18 131/71 93 L 09/29/18 08:17 77 20 09/29/18 08:11 78 129/67 09/29/18 08:00 95 09/29/18 07:26 98.3 F 77 18 129/67 95 09/29/18 03:57 98.7 F 81 19 115/57 L 92 L 09/29/18 02:55 75 16 92 L Weight Admit Weight 451 lb Weight 423 lb 1.6 oz I&O: 09/28/18 09/29/18 09/30/18 06:59 06:59 06:59 Intake Total 1604 510 Output Total 3525 4230 Balance -1921 -3720 Result Diagrams: 09/28/18 06:05 09/28/18 06:05 Additional Labs: Microbiology 09/23/18 18:18 Nasal swab Influenza Types A,B Direct EIA - Final 09/23/18 17:42 Urine clean catch Urine Culture - Final 09/23/18 17:33 Venous blood - Left Arm Blood Culture - Final NO GROWTH IN 5 DAYS 09/23/18 17:28 Venous blood - Right Arm Blood Culture - Final NO GROWTH IN 5 DAYS Phys Exam - Physical Examination Constitutional: NAD HEENT: PERRLA, moist MMs, sclera anicteric, oral pharynx no lesions Neck: no nodes, no JVD, supple, full ROM Respiratory: no wheezing, no rales, no rhonchi, clear to auscultation bilateral Cardiovascular: RRR, no significant murmur, no rub Gastrointestinal: soft, non-tender, no distention, positive bowel sounds Musculoskeletal: pulses present, edema present Neurological: non-focal, normal sensation, moves all 4 limbs Psychiatric: normal affect, A&O x 3 Skin: no rash Dx/Plan (1) Acute on chronic diastolic (congestive) heart failure Code(s): I50.33 - ACUTE ON CHRONIC DIASTOLIC (CONGESTIVE) HEART FAILURE Status : Acute Comment: Continue diuresis. Echo 09/24/18 EF 60%. Patient presently on levaquin, ACC Stage C (2) PAT (paroxysmal atrial tachycardia) Status: Acute Comment: due to chr diastolic CHF and RICHARD.HD stable (3) Bradycardia Code(s): R00.1 - BRADYCARDIA, UNSPECIFIED Status: Acute Comment: In context of untreated RICHARD. I also discussed with him the need for sleep study, to reinforce education from other providers. (4) HTN (hypertension) Code(s): I10 - ESSENTIAL (PRIMARY) HYPERTENSION Status: Acute Qualifiers: Hypertension type: essential hypertension Qualified Code(s): I10 - Essential (primary) hypertension (5) Morbid obesity with BMI of 40.0-44.9, adult Code(s): E66.01 - MORBID (SEVERE) OBESITY DUE TO EXCESS CALORIES; Z68.41 - BODY MASS INDEX (BMI) 40.0-44.9, ADULT Status: Chronic - Plan DVT proph w/SCDs cont diuresis . not ready for DC yet -: home o2 eval on day of DC -: wound care as an outpt -: give 1 dose zaroxolyn today and monitor I/O -: life threatning obesity & severe Wt loss advised * . Review of Systems - Review of Systems Constitutional: weakness, malaise. negative: fever, chills, sweats, other Respiratory: SOB with Excertion. negative: Cough, Dry, Shortness of Breath, Hemoptysis, Pleuritic Pain, Sputum, Wheezing Cardiovascular: edema. negative: chest pain, palpitations, orthopnea, paroxysmal nocturnal dyspnea, light headedness, other Gastrointestinal: negative: Nausea, Vomiting, Abdominal Pain, Diarrhea, Constipation, Melena, Hematochezia, Other Genitourinary: negative: Dysuria, Frequency, Incontinence, Hematuria, Retention , Other Musculoskeletal: negative: Neck Pain, Shoulder Pain, Arm Pain, Back Pain, Hand Pain, Leg Pain, Foot Pain, Other Neurological: negative: Weakness, Numbness, Incoordination, Change in Speech, Confusion, Seizures, Other - Medications/Allergies Allergies/Adverse Reactions: Allergies Allergy/AdvReac Type Severity Reaction Status Date / Time No Known Drug Allergies Allergy Verified 09/23/18 19:42 Medications: Current Medications Albuterol/Ipratropium (Duoneb) 3 ml NEB [id number] [facility] Last Admin: 09/29/18 14:20 Dose: 3 ml Amlodipine Besylate (Norvasc) 10 mg PO HS [facility] Last Admin: 09/28/18 20:07 Dose: 10 mg Enoxaparin Sodium (Lovenox) 40 mg SC 0900 [facility] Last Admin: 09/29/18 08:12 Dose: 40 mg Furosemide (Lasix) 40 mg PO DAILY-AC [facility] Last Admin: 09/29/18 08:10 Dose: 40 mg Lisinopril/HCTZ (Prinizide 20-12.5) 1 tab PO DAILY [facility] Last Admin: 09/29/18 08:11 Dose: 1 tab Levofloxacin 750 mg/ Device 150 mls @ 100 mls/hr IVPB Q24HR [facility] Last Admin: 09/28/18 20:06 Dose: 150 mls Meloxicam (Mobic) 15 mg PO DAILY [facility] Last Admin: 09/29/18 08:11 Dose: 15 mg Metoprolol Succinate (Toprol Xl) 100 mg PO DAILY [facility] Last Admin: 09/29/18 08:11 Dose: 100 mg Polyethylene Glycol (Miralax) 17 gm PO 1200 [facility] Last Admin: 09/29/18 11:17 Dose: Not Given Sodium Chloride (Flush - Normal Saline) 10 ml IVF Q12HR [facility] Last Admin: 09/29/18 08:12 Dose: 10 ml Sodium Chloride (Flush - Normal Saline) 10 ml IVF PRN PRN PRN Reason: Saline Flush Last Admin: 09/28/18 05:44 Dose: 10 ml Tramadol HCl (Ultram) 50 mg PO Q6H PRN PRN Reason: Pain Last Admin: 09/29/18 11:17 Dose: 50 mg
[2018-09-29] MEDS ORDERED: Metolazone 5 MG TAB PO SCH (15:15)
[2018-09-29] MEDS: Amlodipine 10 MG TAB PO SCH (21:17)
[2018-09-30] MEDS: Enoxaparin Sodium 40 MG/0.4 ML SYRINGE SC SCH (08:23)
[2018-09-30] MEDS: Lisinopril/Hydrochlorothiazide 20 mg/12.5 mg Tablet PO SCH (08:23)
[2018-09-30] MEDS: Meloxicam 15 MG TAB PO SCH (08:23)
[2018-09-30] MEDS: Furosemide 40 MG TAB PO SCH (08:23)
[2018-09-30] MEDS: traMADol HCl 50 MG TAB PO PRN (08:24)
[2018-09-30] MEDS: Polyethylene Glycol 3350 17 GM Packet PO SCH (12:00)
[2018-09-30 12:12] VITALS: TEMP 98.6
[2018-09-30 12:20] VITALS: BP 117/57
--- NOTE | 2018-10-01 03:24 | DIS ---
DATE OF ADMISSION: 09/23/2018 DATE OF DISCHARGE: 09/30/2018 PRIMARY CARE PHYSICIAN: Denise Giraldo MD DISCHARGE DIAGNOSES: 1. Acute hypoxic respiratory failure. 2. Acute on chronic diastolic congestive heart failure. 3. Paroxysmal atrial tachycardia. 4. Bradycardia and sinus pauses due to obstructive sleep apnea. 5. Morbid obesity. 6. Suspected obstructive sleep apnea. 7. Hypertension. DISCHARGE MEDICATIONS: Resume home medications. New medications; 1. Lasix 40 mg daily. 2. Potassium chloride 10 mEq daily. 3. He will continue metoprolol succinate 100 mg daily. 4. Amlodipine 10 mg daily. 5. Lisinopril/hydrochlorothiazide 20/12.5 mg daily. IN-HOUSE CONSULTATIONS: 1. Cardiology, Dr. Levine. 2. Pulmonary Medicine, Dr. Flanagan. PROCEDURES DONE IN THE HOSPITAL: Transthoracic echocardiogram which shows EF of 60% without any specific abnormality. HISTORY OF PRESENTING ILLNESS: Mr. Elliott is a pleasant 53-year-old male who is morbidly obese with a BMI of 66 with past medical history of hypertension, who presented to emergency room with complaints of shortness of breath, cough, testicular swelling, and low oxygen saturation noted at PCP's office. Upon presentation, his pulse oximetry was 86%. He had some bilateral small pleural effusion, right lower lobe infiltrate. He was suspected to have right lower lobe pneumonia and was admitted on empiric antibiotics. He was also found to have anasarca with some suspicion of congestive heart failure. Diuresis was started. Echo was ordered and Cardiology was consulted. Please see admission history and physical for further details. HOSPITAL COURSE: He was seen both by Cardiology as well as Pulmonary Medicine. He underwent echocardiogram which did not show any specific diastolic or systolic congestive heart failure, but this is suspected. He had anasarca, suspect right-sided heart failure due to morbid obesity leading to obstructive sleep apnea. He was diuresed aggressively and required multiple days to be able to wean off oxygen. His swelling eventually went down. He had bilateral lower extremity swelling with weeping wounds, which were taken care by the Wound Care in the hospital. He is also being set up for outpatient wound care for same. He needs outpatient sleep study and outpatient Pulmonary Medicine followup. Drastic weight reduction is advised and encouraged, and the patient verbalized understanding and showed understanding of the disease process. As of this morning, he is almost back to his baseline. He was checked with and without oxygen and his oxygen saturation with rest and ambulation stayed above 90%. He will be started on Lasix for the next several days. He will follow up with Dr. Levine in the outpatient setting as well as with Dr. Giraldo and Lasix can be tapered off or he may need to continue it for unforeseeable future. He was seen and examined prior to discharge. PHYSICAL EXAMINATION: This morning, VITAL SIGNS: Temperature 98.6, pulse of 71, respirations 18, saturating anywhere from 89% to 96% on room air, blood pressure 130/67. GENERAL: No acute distress. Awake, alert, and oriented x3. CHEST: Evaluation showed no wheezing. No crackles. HEART: Rate and rhythm are regular. ABDOMEN: Morbidly obese abdomen. EXTREMITIES: Show improvement in pitting edema, but he is still significantly edematous in the legs, which is actually an improvement since presentation. LABORATORY DATA: BNP 171. Serum chemistries and CBC unremarkable prior to discharge. He will follow up with primary care physician as well as Cardiology and Pulmonary Medicine in the outpatient setting. Cardiac rehab and wound care has been set up for him. TOTAL TIME SPENT: 35 minutes. Job ID: [id number]
--- NOTE | 2018-10-01 22:59 | EKG ---
Test Reason : SOB Blood Pressure : / mmHG Vent. Rate : 065 BPM Atrial Rate : 065 BPM P-R Int : 124 ms QRS Dur : 114 ms QT Int : 422 ms P-R-T Axes : 031 001 029 degrees QTc Int : 438 ms Normal sinus rhythm with sinus arrhythmia Incomplete right bundle branch block Anterior infarct , age undetermined Abnormal ECG Confirmed by MAVIS BATRES, KIMBER ([id number]), scientific publications editor YANCI LEMONS ([id number]) on 10/01/2018 10:58:52 PM Referred By: MAVIS Confirmed By:KIMBER GAMBLE MD
== END 2018-09-30 16:42 | disposition home or self-care (01) | DRG 291 ==
LOC: ERS 16:00 → T4-B 17:14 → 2SW 09-24 11:34 → 2NO 09-29 16:11
PROVIDERS: ADMIT Family Medicine; ATTEND Family Medicine
DX: I11.0 Hypertensive heart disease with heart failure (principal); J96.01 Acute respiratory failure with hypoxia; J96.02 Acute respiratory failure with hypercapnia; I47.1 Supraventricular tachycardia; Z68.44 Body mass index [BMI] 60.0-69.9, adult; E66.2 Morbid (severe) obesity with alveolar hypoventilation; I50.33 Acute on chronic diastolic (congestive) heart failure; E87.5 Hyperkalemia; K59.00 Constipation, unspecified; R00.1 Bradycardia, unspecified; Z87.891 Personal history of nicotine dependence; Z79.899 Other long term (current) drug therapy
CPT/HCPCS: 36415; 51702; 71045; 80048; 80053; 81003; 81015; 82550; 82805; 83690; 83880; 84484; 85025; 87040; 87086; 87804; 93005; 93306; 93798; 94760; 96365; 96375; J1650; J1940; J1956; J7620

== ENCOUNTER 2018-10-12 08:47 | Outpatient (CLI) | payer OTHER ==
--- NOTE | 2018-10-12 10:08 | PRG ---
DATE OF SERVICE: 10/12/2018 HISTORY: Mr. Randall Elliott is a very pleasant 53-year-old gentleman, who presents to the Wound Center for evaluation of multiple ulcerations of the right and left lower legs. The patient was recently discharged from [facility] after admission for dyspnea. During the patient's hospital stay, he was seen by wound care for bilateral lower extremity swelling with weeping wounds. The patient stated previously, that he had edema and blisters of the right and left lower legs for approximately 4 years. After being seen in the Wound Center, the ulcerations were dressed with Silverlon, Webril, and the 3M Coban 2 Layer Compression System. PHYSICAL EXAMINATION: VITAL SIGNS: Temperature 98.0, pulse 80, and blood pressure 143/71. EXTREMITIES: Multiple small superficial ulcerations of the right and left lower legs are present. Granulation tissue is present within the margins of each wound. No purulent drainage is associated with any of the wounds. No erythema of the skin surrounding any of the wounds is present. No maceration of the skin of the periwound of any of the wounds is noted. A dorsalis pedis pulse is palpable on the right and on the left. Edema of the right and left lower extremities is present on exam today. Circumferences of the right lower extremity at the foot, ankle, and calf are 28 cm, 31 cm, and 50 cm. Circumferences of the left lower extremity at the foot, ankle, and calf are 29 cm, 33.5 cm, and 50 cm. ASSESSMENT AND PLAN: 1. Chronic venous hypertension with ulcers. Silverlon, Webril, and the 3M Coban 2 Layer Compression System will be applied to the ulcerations today. I will see Mr. Elliott again in 1 week. 2. Hypertension. 3. History of peptic ulcer disease. 4. Congestive heart failure, diastolic. Job ID: [id number]
[2018-10-12] MEDS ORDERED: Sodium Chloride 0.9% 15 ML NEB ONE ×2 (15:31→20:13)
== END 2018-10-12 08:48 | disposition home or self-care (01) ==
LOC: WCC 08:47
PROVIDERS: ATTEND Family Medicine
DX: I87.313 Chronic venous hypertension (idiopathic) with ulcer of bilateral lower extremity (principal); L97.929 Non-pressure chronic ulcer of unspecified part of left lower leg with unspecified severity; L97.919 Non-pressure chronic ulcer of unspecified part of right lower leg with unspecified severity; I11.0 Hypertensive heart disease with heart failure; I50.30 Unspecified diastolic (congestive) heart failure
CPT/HCPCS: A4218

== ENCOUNTER 2018-10-20 09:34 | Outpatient (CLI) | payer OTHER ==
--- NOTE | 2018-10-20 11:15 | PRG ---
DATE OF SERVICE: 10/20/2018 HISTORY: Mr. Randall Elliott is a very pleasant 53-year-old gentleman, who presents to the Wound Center for evaluation of multiple ulcerations of the right and left lower legs. The patient was recently discharged from [facility] after admission for dyspnea. During the patient's hospital stay, he was seen by wound care for bilateral lower extremity swelling with weeping wounds. The patient stated previously, that he had had edema and blisters of the right and left lower legs for approximately 4 years. After being seen in the Wound Center, the ulcerations were dressed with Silverlon, Webril, and the 3M Coban 2 Layer Compression System. The patient has been receiving the preceding dressing changes on a weekly basis. PHYSICAL EXAMINATION: VITAL SIGNS: Temperature 97.9, pulse 70, and blood pressure 131/70. EXTREMITIES: An ulceration is present over the right posterior lower leg, which measures approximately 2.5 x 2.4 cm. An ulceration is present over the left anterior lower leg, which measures approximately 0.6 x 1.5 cm. Granulation tissue is present within the margins of each wound. No purulent drainage is associated with either wound. No erythema of the skin surrounding either wound is present. No maceration of the skin of the periwound of either wound is noted. A dorsalis pedis pulse is palpable on the right and on the left. Edema of the right and left lower extremities is present on exam today. Circumferences of the right lower extremity at the foot, ankle, calf, and knee are 28.5 cm, 32 cm, 54 cm, and 48 cm. Circumferences of the left lower extremity at the foot, ankle, calf, and knee are 28 cm, 34 cm, 52 cm, and 49 cm. Hyperpigmentation of the skin of the right and left lower legs is present secondary to hemosiderin deposition. ASSESSMENT AND PLAN: 1. Chronic venous hypertension with ulcers. Silverlon, Webril, and the 3M Coban 2 Layer Compression System will be applied to the ulcerations today. I will see Mr. Elliott again in 1 week. Arrangements will also be made for the home delivery of compression garments. 2. Lymphedema tarda. Arrangements will be made for the initiation of in-home lymphedema therapy. The patient continues to have lymphedema despite treatment with serial compression wraps and elevation. 3. Hypertension. 4. History of peptic ulcer disease. 5. Congestive heart failure, diastolic. Job ID: [id number]
== END 2018-10-20 09:35 | disposition home or self-care (01) ==
LOC: WCC 09:34
PROVIDERS: ATTEND Family Medicine
DX: I87.311 Chronic venous hypertension (idiopathic) with ulcer of right lower extremity (principal); L97.919 Non-pressure chronic ulcer of unspecified part of right lower leg with unspecified severity; I89.0 Lymphedema, not elsewhere classified; I11.0 Hypertensive heart disease with heart failure; I50.30 Unspecified diastolic (congestive) heart failure

== ENCOUNTER 2018-10-26 09:41 | Outpatient (CLI) | payer OTHER ==
--- NOTE | 2018-10-26 10:26 | PRG ---
DATE OF SERVICE: 10/26/2018 SUBJECTIVE: Mr. Randall Elliott is a very pleasant 53-year-old gentleman, who presents to the Wound Center for evaluation of multiple ulcerations of the right and left lower legs. The patient was recently discharged from [facility] after admission for dyspnea. During the patient's hospital stay, he was seen by Wound Care for bilateral lower extremity swelling with weeping wounds. The patient previously stated that he had edema and blisters of the right and left lower legs for approximately four years. After being seen in the Wound Center, the ulcerations were dressed with Silverlon, Webril, and the 3M Coban 2 Layer Compression System. The patient has been receiving the preceding dressing changes on a weekly basis. OBJECTIVE: VITAL SIGNS: Temperature 98.0, pulse 67, respirations 23, and blood pressure 122/80. EXTREMITIES: An ulceration is present over the right posterior lower leg, which measures approximately 5.0 x 2.8 cm. An ulceration is present over the left anterior lower leg, which measures approximately 0.9 x 1.0 cm. Granulation tissue is present within the margins of each wound. No purulent drainage is associated with either wound. No erythema of the skin surrounding either wound is present. No maceration of the skin of the periwound of either wound is noted. A dorsalis pedis pulse is palpable on the right and on the left. Edema of the right and left lower extremities is present on exam today. Circumferences of the right lower extremity at the ankle, calf, and knee are 32 cm, 54.5 cm, and 48 cm. Circumferences of the left lower extremity at the ankle, calf, and knee are 32 cm, 52.5 cm, and 47.5 cm. Hyperpigmentation of the skin of the right and left lower legs is present secondary to hemosiderin deposition. ASSESSMENT AND PLAN: 1. Chronic venous hypertension with ulcers. Silverlon, Webril, and the 3M Coban 2 Layer Compression System will be applied to the ulcerations today. I will see Mr. Elliott again in 1 week. Arrangements will continue for the home delivery of compression garments. 2. Lymphedema tarda. Arrangements will also continue for the initiation of in-home lymphedema therapy. The patient continues to have lymphedema despite treatment with serial compression wraps and elevation. 3. Hypertension. 4. History of peptic ulcer disease. 5. Congestive heart failure, diastolic. Job ID: [id number]
== END 2018-10-26 09:42 | disposition home or self-care (01) ==
LOC: WCC 09:41
PROVIDERS: ATTEND Family Medicine
DX: I87.311 Chronic venous hypertension (idiopathic) with ulcer of right lower extremity (principal); L97.919 Non-pressure chronic ulcer of unspecified part of right lower leg with unspecified severity; I50.30 Unspecified diastolic (congestive) heart failure; I89.0 Lymphedema, not elsewhere classified; Z87.11 Personal history of peptic ulcer disease
CPT/HCPCS: 97602

== ENCOUNTER 2018-11-02 10:32 | Outpatient (CLI) | payer OTHER ==
--- NOTE | 2018-11-02 12:08 | PRG ---
DATE OF SERVICE: 11/02/2018 HISTORY: Mr. Randall Elliott is a very pleasant 53-year-old gentleman, who presents to the Wound Center for evaluation of multiple ulcerations of the right and left lower legs. The patient was recently discharged from [facility] after admission for dyspnea. During the patient's hospital stay, he was seen by Wound Care for bilateral lower extremity swelling with weeping wounds. The patient previously stated that he had had edema and blisters of the right and left lower legs for approximately 4 years. After being seen in the Wound Center, the ulcerations were dressed with Silverlon, Webril, and the 3M Coban 2 Layer Compression System. The patient received the preceding dressing changes on a weekly basis. PHYSICAL EXAMINATION: VITAL SIGNS: Temperature 98.1, pulse 75, blood pressure 142/74. EXTREMITIES: An ulceration is present over the right posterior lower leg, which measures approximately 0.7 x 0.7 cm. An ulceration is present over the left anterior lower leg, which measures approximately 2.0 x 1.8 cm. Granulation tissue is present within the margins of each wound. No purulent drainage is associated with either wound. No erythema of the skin surrounding either wound is present. No maceration of the skin of the periwound of either wound is noted. Edema of the right and left lower extremities is present on exam today. Circumferences of the right lower extremity at the foot, ankle, calf, and knee are 29 cm, 32 cm, 55.5 cm, and 49.5 cm. Circumferences of the left lower extremity at the foot, ankle, calf, and knee are 27.5 cm, 33.5 cm, 51 cm, and 48.5 cm. ASSESSMENT AND PLAN: 1. Chronic venous hypertension with ulcers. The patient has received FarrowWraps, which will be applied to the right and left feet and lower extremities today. Silvercel will be applied to the open wounds followed by gauze or Mepilex border. 2. Lymphedema tarda. Arrangements will continue for the initiation of in-home lymphedema therapy. 3. Hypertension. 4. History of peptic ulcer disease. 5. Congestive heart failure. Job ID: [id number]
[2018-11-02] MEDS ORDERED: Sodium Chloride 0.9% 15 ML NEB ONE (16:04)
== END 2018-11-02 10:33 | disposition home or self-care (01) ==
LOC: WCC 10:32
PROVIDERS: ATTEND Family Medicine
DX: I87.313 Chronic venous hypertension (idiopathic) with ulcer of bilateral lower extremity (principal); I10 Essential (primary) hypertension; I89.0 Lymphedema, not elsewhere classified; I48.0 Paroxysmal atrial fibrillation; I50.9 Heart failure, unspecified; Z87.11 Personal history of peptic ulcer disease
CPT/HCPCS: 97602

== ENCOUNTER 2018-11-09 10:39 | Outpatient (CLI) | payer OTHER ==
--- NOTE | 2018-11-09 11:16 | PRG ---
DATE OF SERVICE: 11/09/2018 HISTORY: Mr. Randall Elliott is a very pleasant 53-year-old gentleman, who presents to the Wound Center for evaluation of multiple ulcerations of the right and left lower legs. The patient was recently discharged from [facility] after admission for dyspnea. During the patient's hospital stay, he was seen by wound care for bilateral lower extremity swelling with weeping wounds. The patient previously stated that he had had edema and blisters of the right and left lower legs for approximately 4 years. After being seen in the Wound Center, the ulcerations were dressed with Silverlon, Webril and the 3M Coban 2 Layer Compression System. The patient received the preceding dressing changes on a weekly basis. Since the patient's last visit, Mr. Elliott has been utilizing FarrowWraps as previously prescribed. PHYSICAL EXAMINATION: VITAL SIGNS: Temperature 98.1, pulse 73, and blood pressure 171/80. EXTREMITIES: All ulcerations of the right and left lower legs have healed completely. The edema of the right and left lower extremities have significantly decreased since the patient's initial presentation to the Wound Center. ASSESSMENT AND PLAN: 1. Chronic venous hypertension with ulcers. As stated above, the ulcerations of the right and left lower legs have healed completely. The patient has been instructed to continue to utilize his FarrowWraps as previously prescribed. 2. Lymphedema tarda. Arrangements will continue for the initiation of in-home lymphedema therapy. The patient has been asked to return to clinic on 11/24/2018. 3. Hypertension. 4. History of peptic ulcer disease. 5. Congestive heart failure. Job ID: [id number]
== END 2018-11-09 10:40 | disposition home or self-care (01) ==
LOC: WCC 10:39
PROVIDERS: ATTEND Family Medicine
DX: I87.333 Chronic venous hypertension (idiopathic) with ulcer and inflammation of bilateral lower extremity (principal); I50.9 Heart failure, unspecified; I10 Essential (primary) hypertension; Z87.11 Personal history of peptic ulcer disease

== ENCOUNTER 2019-07-18 13:11 | Outpatient (CLI) | payer OTHER ==
--- NOTE | 2019-07-18 13:41 | RAD ---
Exam: Chest 2 views HISTORY:Hypoxia Comparison: 09/23/2018 FINDINGS: Lungs: Interstitial prominence bilaterally Cardiac silhouette:Enlarged cardiac silhouette Pulmonary vessels: Prominent central pulmonary vasculature Pleural Spaces: Clear Pneumothorax: None Osseous abnormalities: None of acuity. IMPRESSION: Mild fluid overload, which may relate to CHF. Correlate clinically.
== END 2019-07-18 13:12 | disposition home or self-care (01) ==
LOC: SCSRAD 13:11
PROVIDERS: ATTEND Family Medicine
DX: R05 Cough (principal)
CPT/HCPCS: 71046

== ENCOUNTER 2019-09-09 20:30 | Outpatient (CLI) | payer OTHER | END 2019-09-09 20:31 | LOC: SLEEPLAB 20:30 | PROVIDERS: ATTEND Family Medicine | DX: G47.33 Obstructive sleep apnea (adult) (pediatric) (principal); R53.83 Other fatigue; E66.9 Obesity, unspecified; I10 Essential (primary) hypertension; R06.83 Snoring; R09.02 Hypoxemia | CPT/HCPCS: 95811 ==

== ENCOUNTER 2019-09-10 13:28 | Inpatient (IN) | payer OTHER ==
[2019-09-10 14:09] LABS: Base Excess-Venous 7.4 mmol/L (-2.0 to 3.0); Bicarbonate (HCO3v) 37.2 mmol/L (22.0-28.0); CO2 Tension (PvCO2) 70.1 mmHg (40.0-50.0); Calcium, Ionized 1.12 mmol/L (See Comments:); Chloride 96 mmol/L (98-107); Hemoglobin - Calc 18.7 g/dL (14.0-18.0); Potassium 4.3 mmol/L (3.5-5.1); Sodium 141 mmol/L (138-145); T. Carbon Dioxide 39.3 mmol/L (22.0-28.0)
[2019-09-10 14:10] LABS: #Basophils 0.1 thou/uL (0.0-0.2); #Eosinphils 0.1 thou/uL (0.0-0.7); #Lymphocytes 1.6 thou/uL (1.20-3.40); #Monocytes 0.8 thou/uL (0.11-0.59); #Neutrophils 6.6 thou/uL (1.40-6.50); %Basophils 0.8 % (0.0-1.0); %Eosinophils 1.5 % (0.0-10.0); %Lymphocytes 17.6 % (21.0-51.0); %Monocytes 8.5 % (0.0-10.0); %Neutrophils 71.6 % (42.0-75.0); Hemoglobin 16.6 g/dL (14.0-18.0); Mean Corpuscular HGB CONC 31.3 g/dL (32.0-36.0); Mean Corpuscular Hemoglobin 29.4 pg (27.0-31.0); Mean Platelet Volume 8.1 fL (7.4-10.4); Platelet Count 233 thou/uL (130-400); RBC Distribution Width 15.1 % (11.5-14.5); Red Blood Cell (RBC) Count 5.62 mill/uL (4.70-6.10); White Blood Cell (WBC) Count 9.2 thou/uL (4.8-10.8)
[2019-09-10 14:48] LABS: CKMB 1.7 ng/mL (0-6.6)
[2019-09-10 14:50] LABS: ALT (SGPT) 14 U/L (8-55); AST (SGOT) 22 U/L (5-34); Albumin 3.9 g/dL (3.5-5.0); Alkaline Phosphatase 76 U/L (40-110); Anion Gap 15 mmol/L (10-20); BUN (Urea Nitrogen) 26 mg/dL (8.4-25.7); Bilirubin, Total 0.6 mg/dL (0.2-1.2); Calc. Creatinine Clearance 0 mL/min (70-130); Calcium 9.3 mg/dL (7.8-10.44); Carbon Dioxide 35 mmol/L (22-29); Chloride 97 mmol/L (98-107); Estimated GFR-MDRD Greater than 90; Globulin 3.2 g/dL (2.4-3.5); Glucose 95 mg/dL (70-105); Potassium 4.6 mmol/L (3.5-5.1); Protein, Total 7.1 g/dL (6.0-8.3); Sodium 142 mmol/L (136-145)
[2019-09-10] MEDS ORDERED: hydrALAZINE 20 MG/ML VIAL ONE (15:58)
[2019-09-10 17:20] LABS: Actual Bicarbonate (HCO3a) 32.6 mEq/L (22-28); Analyzer IN Cardio ER; Base Excess (BEa) 7.5 mEq/L (-2.0 to +3.0); CO2 Tension 46.5 mmHg (35.0-45.0); Calcium, Ionized 1.14 mmol/L (1.12-1.30); Carboxyhemoglobin (COHb) 1.3 gm% (0.0-3.0); Hemoglobin (Hb) 17.4 g/dL (14.0-18.0); O2 Tension (PaO2) 71.5 mmHg (80.0-100.0); Potassium - ABG Lab 4.02 mmol/L (3.70-5.30); pH, Arterial 7.46 (7.35-7.45)
[2019-09-10 17:22] LABS: ALV-art Gradient 127.055 (0-20); Puncture Site RRA
--- NOTE | 2019-09-10 20:25 | RAD ---
PORTABLE CHEST: History: Shortness of breath. Comparison: 09-23-18 FINDINGS: Heart size is enlarged with mild vascular engorgement but no overt edema. IMPRESSION: Cardiomegaly with mild vascular engorgement. POS: RAMILA
[2019-09-10] MEDS ORDERED: Aspirin Chewable 81 MG TAB ONE (22:40)
--- NOTE | 2019-09-11 00:18 | HP ---
PRIMARY CARE PHYSICIAN: Denise Giraldo MD CHIEF COMPLAINT: Low oxygen level. HISTORY OF PRESENT ILLNESS: Mr. Elliott is a pleasant 54-year-old gentleman, who has a history of hypertension and osteoarthritis. He says that he had been putting off getting a sleep study for about 4 to 5 years and finally went to do the sleep study. He says that they woke him up while he was completing the study and said that his oxygen level was low like in the 70s. He felt that this was odd since when he woke up this time, he said he had felt better than he had had in the long time. He says usually he feels extremely tired. However, he does note that in the last few weeks he has been getting "really short of breath," especially when he is moving around. He denies any chest pain, no palpitations, but has noted increasing lower extremity edema. He denies any other symptoms such as nausea, vomiting. No abdominal pain. However, since his oxygen level was so low, the ER physician wanted to place him in observation. REVIEW OF SYSTEMS: CONSTITUTIONAL: There are no fevers, chills, or night sweats. No weight loss. HEENT: He denies any headaches. No dizziness. No visual changes. No sore throat or rhinorrhea, or neck pain. No adenopathy. PULMONARY: No hemoptysis. No cough. No wheezing. CARDIOVASCULAR: As in the history of present illness. GASTROINTESTINAL: No nausea. No vomiting. No change in bowels. GENITOURINARY: No urinary frequency or hematuria. No hesitancy. NEUROLOGIC: No focal weakness or numbness. No seizures. MUSCULOSKELETAL: No muscle pains, weakness, or joint pains. SKIN AND INTEGUMENT: No skin changes. No rash. PAST MEDICAL HISTORY: Significant for hypertension and osteoarthritis. PAST SURGICAL HISTORY: No surgeries. ALLERGIES: NO KNOWN DRUG ALLERGIES. SOCIAL HISTORY: He is a former smoker. He quit 10 years ago. He occasionally drinks alcohol. He is , has 2 children. He works as a commercial lending assistant. FAMILY HISTORY: No history of any heritable diseases. MEDICATIONS: Include; 1. Lisinopril/hydrochlorothiazide 20/12.5, 1 tablet daily. 2. Metoprolol succinate extended release 100 mg daily. 3. Furosemide 20 mg daily. 4. Meloxicam 15 mg daily. 5. Tramadol 50 mg as directed. 6. Amlodipine 10 mg once a day. PHYSICAL EXAMINATION: GENERAL: He is alert and oriented. He appears to be in no acute distress. He is morbidly obese. VITAL SIGNS: His weight is 202 kg. HEENT: Pupils are equal, round, and reactive. Extraocular muscles are intact. His sclerae anicteric. Throat, no erythema, no exudates. NECK: No adenopathy. No bruits. LUNGS: Clear to auscultation. There is no wheezing. No rales. No rhonchi. CARDIOVASCULAR: He has a normal S1, S2. He does have a grade 2/6 systolic murmur. ABDOMEN: Obese. It is soft, nontender, and nondistended. Positive for bowel sounds. No rebound or guarding. No organomegaly. EXTREMITIES: He has massive lower extremity edema, which is pitting. He also has chronic venous stasis changes. He has barely palpable dorsalis pedis pulses. NEUROLOGIC: The exam is nonfocal. LABORATORY DATA: The white blood cell count is 9.2, hemoglobin 16.6, hematocrit is 52.8, and platelet count is 233. Sodium is 141, potassium 4.3, chloride is 96, CO2 is 35, BUN of 26, creatinine 0.81, glucose is 95, and troponin is less than 0.020. ASSESSMENT: 1. This is a 54-year-old gentleman, who is being admitted and placed in observation for hypoxemia. This is in the setting of severe life-threatening obesity and likely obesity hypoventilation syndrome. The concern is that he may require oxygen at home until he can be stabilized with regard to his obesity hypoventilation. He may also have some mild diastolic heart failure as he does appear to be volume overloaded. He had an echo done back in September 2018, in which the ejection fraction was estimated at 60%. a. The patient will be diuresed overnight. b. We will trend his cardiac enzymes. c. Place him on supplemental oxygen. d. Reassess his need for oxygen in the a.m. Should he still be hypoxic on room air, then we will consult Case Management to arrange home oxygen. 2. Hypertension. Currently, his blood pressure is elevated. We will restart his home medications as well as p.r.n. medications and titrate his blood pressure medications if needed. 3. For severe morbid obesity, we will consult the dietitian for calorie-restricted diet and the patient was counseled on the dangers of his current weight. Job ID: [id number]
[2019-09-11] MEDS ORDERED: hydrALAZINE 20 MG/ML VIAL SLOW IVP PRN (01:33)
[2019-09-11] MEDS ORDERED: Amlodipine 10 MG TAB PO SCH (02:00)
[2019-09-11] MEDS: Azelastine 137 MCG/Spray 30 ML NS SCH ×3 (02:07→21:01)
[2019-09-11 02:22] LABS: Troponin I 0.057 ng/mL (< 0.028)
[2019-09-11 05:27] LABS: #Basophils 0.1 thou/uL (0.0-0.2); #Eosinphils 0.2 thou/uL (0.0-0.7); #Monocytes 0.9 thou/uL (0.11-0.59); #Neutrophils 6.7 thou/uL (1.40-6.50); %Basophils 0.7 % (0.0-1.0); %Eosinophils 1.7 % (0.0-10.0); %Lymphocytes 20.1 % (21.0-51.0); %Neutrophils 68.6 % (42.0-75.0); Hemoglobin 15.8 g/dL (14.0-18.0); Mean Corpuscular HGB CONC 31.4 g/dL (32.0-36.0); Mean Corpuscular Hemoglobin 29.4 pg (27.0-31.0); Mean Corpuscular Volume 93.6 fL (78.0-98.0); Mean Platelet Volume 8.1 fL (7.4-10.4); Platelet Count 227 thou/uL (130-400); Red Blood Cell (RBC) Count 5.38 mill/uL (4.70-6.10); White Blood Cell (WBC) Count 9.7 thou/uL (4.8-10.8)
[2019-09-11 05:43] LABS: Anion Gap 11 mmol/L (10-20); BUN (Urea Nitrogen) 22 mg/dL (8.4-25.7); Calc. Creatinine Clearance 302 mL/min (70-130); Calcium 8.9 mg/dL (7.8-10.44); Carbon Dioxide 32 mmol/L (22-29); Chloride 98 mmol/L (98-107); Estimated GFR-MDRD Greater than 90; Glucose 85 mg/dL (70-105); Potassium 4.1 mmol/L (3.5-5.1); Sodium 137 mmol/L (136-145)
[2019-09-11] MEDS: Furosemide 40 MG/4 ML VIAL SLOW IVP SCH ×2 (05:45→13:31)
[2019-09-11] MEDS ORDERED: Furosemide 40 MG/4 ML VIAL SLOW IVP SCH (06:00)
[2019-09-11] MEDS ORDERED: Furosemide 40 MG TAB PO SCH (07:30)
[2019-09-11] MEDS: Enoxaparin Sodium 40 MG/0.4 ML SYRINGE SC SCH (08:39)
[2019-09-11] MEDS: Potassium Chloride 20 MEQ TAB PO SCH (08:39)
[2019-09-11] MEDS: Famotidine 20 MG TAB PO SCH ×2 (08:39→21:00)
[2019-09-11] MEDS: Lisinopril/Hydrochlorothiazide 20 mg/12.5 mg Tablet PO SCH (08:39)
[2019-09-11] MEDS: Meloxicam 15 MG TAB PO SCH (08:39)
[2019-09-11] MEDS: traMADol HCl 50 MG TAB PO PRN ×2 (08:42→14:49)
--- NOTE | 2019-09-11 11:56 | ULT ---
EXAM: Bilateral lower extremity venous duplex: Deep veins evaluated with color Doppler, spectral analysis, and compression. INDICATIONS: Bilateral lower extremity pain and edema. FINDINGS: Deep veins interrogated include common femoral vein, femoral vein, popliteal vein, and post erior tibial vein. These veins show normal compression and blood flow. No evidence of DVT. IMPRESSION: Negative Bilateral venous duplex exam.
--- NOTE | 2019-09-11 13:21 | CON ---
DATE OF CONSULTATION: 09/11/2019 REASON FOR CONSULTATION: RICHARD. HISTORY OF PRESENT ILLNESS: The patient is a 54-year-old, who was admitted to the hospital yesterday with low oxygen level. He says he has been retaining fluid in his lower extremities for quite some time. He had a sleep study done 2 nights ago, where he apparently desaturated into the 70s. The results of that study are not known at this time. He has gained approximately 100 pounds of weight in the last year. He has no previous history of heart disease or lung disease. PAST MEDICAL HISTORY: 1. Hypertension. 2. Osteoarthritis. 3. Obesity. PAST SURGICAL HISTORY: None. ALLERGIES: NONE. SOCIAL HISTORY: Quit smoking more than 10 years ago. 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 He occasionally drinks alcohol. He is . He has 2 children. MEDICATIONS: Prior to admission; 1. Lisinopril/hydrochlorothiazide. 2. Metoprolol. 3. Furosemide. 4. Meloxicam. 5. Tramadol. 6. Amlodipine. REVIEW OF SYSTEMS: Remarkable for chronic knee pain, leg swelling, witnessed apnea, poor sleep, and generalized fatigue. PHYSICAL EXAMINATION: VITAL SIGNS: Temperature 98.6, pulse 64, respirations 18, O2 saturation 94% on 2 L, and blood pressure 121/83. GENERAL: He is 5 feet 8 inches, weighs 400 pounds. HEENT: Remarkable for class IV Mallampati airway. NECK: No adenopathy or JVD. CHEST: Poor air movement bilaterally. CARDIAC: S1 and S2, muffled. ABDOMEN: Morbidly obese, soft. EXTREMITIES: 3+ edema from the thighs downward. LABORATORY DATA: ABG; pH of 7.46, pCO2 of 46, and pO2 of 71, that was on 3 L nasal cannula. White blood cell count 9.5, hematocrit 50.4, and platelet count 227. Sodium 137, potassium 4.1, chloride 98, CO2 of 32, BUN 22, creatinine 0.7, and glucose 85. ASSESSMENT: 1. Likely obstructive sleep apnea and obesity hypoventilation syndrome. 2. Morbid obesity. PLAN: He is currently being diuresed. I will go over to the Sleep Center to see if we can find the results of the sleep study that was done 2 nights ago. Hopefully, we can get him set up for CPAP or BiPAP before discharge. Job ID: [id number]
--- NOTE | 2019-09-11 15:14 | PDOC.HOSPP ---
- Subjective Encounter Date: 09/11/19 Encounter Time: 10:00 Subjective: Patient seen and examined for Respiratory failure. SOB on mild exertion. No new complaints. No overnight events - Objective Vital Signs & Weight: Vital Signs (12 hours) Temp Pulse Pulse Pulse Resp BP BP 09/11/19 12:55 57 L 70 121/67 136/74 09/11/19 11:08 97.7 F 61 24 H 09/11/19 07:17 98.6 F 64 18 09/11/19 05:01 98.4 F 68 19 BP BP Pulse Ox Pulse Ox Pulse Ox Pulse Ox 09/11/19 12:55 91 L 90 L 85 L 09/11/19 11:08 121/67 92 L 09/11/19 07:17 121/83 94 L 09/11/19 05:01 115/55 L 93 L Weight Weight 400 lb I&O: 09/10/19 09/11/19 09/12/19 06:59 06:59 06:59 Intake Total 364 Output Total 800 Balance 364 -800 Result Diagrams: 09/11/19 04:55 09/11/19 04:55 EKG Reviewed by me: Yes (Tele SR) Hospitalist ROS - Review of Systems Cardiovascular: reports: edema. denies: chest pain, palpitations, orthopnea, paroxysmal noc. dyspnea, light headedness, other Gastrointestinal: denies: nausea, vomiting, abdominal pain, diarrhea, constipation, melena, hematochezia, other - Medication Medications: Active Medications Generic Name Dose Route Start Last Admin Trade Name Freq PRN Reason Stop Dose Admin Azelastine HCl 0 ml 09/11/19 09:00 09/11/19 08:40 Azelastine NS 1 spr BID ROCIO Administration Enoxaparin Sodium 40 mg 09/11/19 09:00 09/11/19 08:39 Lovenox SC 40 mg 0900 ROCIO Administration Famotidine 20 mg 09/11/19 09:00 09/11/19 08:39 Pepcid PO 20 mg BID ROCIO Administration Furosemide 40 mg 09/11/19 06:00 09/11/19 13:31 Lasix SLOW IVP 40 mg 0600,1400 ROCIO Administration Lisinopril/HCTZ 1 tab 09/11/19 09:00 09/11/19 08:39 Prinizide 20-12.5 PO 1 tab DAILY ROCIO Administration Meloxicam 15 mg 09/11/19 09:00 09/11/19 08:39 Mobic PO 15 mg DAILY ROCIO Administration Metoprolol Succinate 100 mg 09/11/19 09:00 09/11/19 08:40 Toprol Xl PO 100 mg DAILY ROCIO Administration Potassium Chloride 20 meq 09/11/19 08:00 09/11/19 08:39 K-Dur PO 20 meq QAM-WM ROCIO Administration Tramadol HCl 50 mg 09/11/19 01:49 09/11/19 14:49 Ultram PO 50 mg Q6H PRN Administration Severe Pain (7-10) - Exam Heart: RRR, no gallops Respiratory: rales, rhonchi Gastrointestinal: soft, non-tender, no palpable masses Extremities: 2+ LE edema Hosp A/P - Plan DVT proph w/lovenox Acute on chronic diastolic HF exacerbation RICHARD Morbid obesity BMI 60.8 HTN DJD PLAN: Add fluid restriction Cont IV Lasix 40 mg IV BID Consult Pulmonary Patient will need home O2 due to low sats on rest AM labs Consult Cardiac Rehab
[2019-09-11] MEDS: Amlodipine 10 MG TAB PO SCH (21:01)
[2019-09-12 04:20] LABS: #Eosinphils 0.2 thou/uL (0.0-0.7); #Lymphocytes 1.9 thou/uL (1.20-3.40); #Monocytes 0.8 thou/uL (0.11-0.59); #Neutrophils 5.5 thou/uL (1.40-6.50); %Basophils 0.3 % (0.0-1.0); %Eosinophils 2.3 % (0.0-10.0); %Lymphocytes 22.3 % (21.0-51.0); %Monocytes 9.4 % (0.0-10.0); %Neutrophils 65.7 % (42.0-75.0); Hemoglobin 15.5 g/dL (14.0-18.0); Mean Corpuscular HGB CONC 31.1 g/dL (32.0-36.0); Mean Corpuscular Volume 93.2 fL (78.0-98.0); Mean Platelet Volume 8.3 fL (7.4-10.4); Platelet Count 223 thou/uL (130-400); RBC Distribution Width 14.9 % (11.5-14.5); Red Blood Cell (RBC) Count 5.34 mill/uL (4.70-6.10); White Blood Cell (WBC) Count 8.3 thou/uL (4.8-10.8)
[2019-09-12 04:40] LABS: ALT (SGPT) 10 U/L (8-55); AST (SGOT) 22 U/L (5-34); Albumin 3.5 g/dL (3.5-5.0); Anion Gap 11 mmol/L (10-20); BUN (Urea Nitrogen) 20 mg/dL (8.4-25.7); Calc. Creatinine Clearance 325 mL/min (70-130); Calcium 9.2 mg/dL (7.8-10.44); Carbon Dioxide 34 mmol/L (22-29); Chloride 97 mmol/L (98-107); Estimated GFR-MDRD Greater than 90; Glucose 73 mg/dL (70-105); Potassium 4.2 mmol/L (3.5-5.1); Protein, Total 6.5 g/dL (6.0-8.3); Sodium 138 mmol/L (136-145)
[2019-09-12 04:54] LABS: Alkaline Phosphatase 67 U/L (40-110)
[2019-09-12] MEDS: Furosemide 40 MG/4 ML VIAL SLOW IVP SCH ×2 (05:42→14:31)
[2019-09-12] MEDS: Lisinopril/Hydrochlorothiazide 20 mg/12.5 mg Tablet PO SCH (08:09)
[2019-09-12] MEDS: Aspirin 81 mg Enteric Coated Tablet PO SCH (08:09)
[2019-09-12] MEDS: Potassium Chloride 20 MEQ TAB PO SCH (08:10)
[2019-09-12] MEDS: Meloxicam 15 MG TAB PO SCH (08:10)
[2019-09-12] MEDS: Famotidine 20 MG TAB PO SCH ×2 (08:10→20:39)
[2019-09-12] MEDS: Enoxaparin Sodium 40 MG/0.4 ML SYRINGE SC SCH (08:10)
[2019-09-12] MEDS: Azelastine 137 MCG/Spray 30 ML NS SCH ×2 (08:11→20:39)
--- NOTE | 2019-09-12 09:07 | PRG ---
DATE OF SERVICE: 09/12/2019 SUBJECTIVE: Mr. Elliott says he could not tolerate settings for his sleep apnea last night. I do not see whether there is an order in. We will have to talk to respiratory therapist and see what the settings are. OBJECTIVE: LUNGS: Clear. HEART: Regular rhythm. ABDOMEN: Soft. VITAL SIGNS: His blood pressure is controlled. Oximetry is 94 on 2 L and 90 on room air. IMPRESSION: Untreated sleep apnea. PLAN: Nocturnal CPAP or BiPAP. His sleep study is not available. This was done on Wednesday night. There is no report in the computer, so we will have to guess I suppose. Job ID: [id number]
[2019-09-12] MEDS: HYDROcodone/Acetaminophen 5/325 mg Tablet PO PRN (14:39)
--- NOTE | 2019-09-12 18:11 | PDOC.HOSPP ---
- Subjective Encounter Date: 09/12/19 Encounter Time: 16:30 Subjective: Patient seen and examined for Resp failure. SOB improving. No CP. No new complaints. No overnight events - Objective Vital Signs & Weight: Vital Signs (12 hours) Temp Pulse Pulse Pulse Resp BP BP 09/12/19 16:33 98.6 F 66 14 09/12/19 12:00 60 09/12/19 10:12 63 55 L 141/74 H 09/12/19 08:09 65 142/81 H 09/12/19 08:00 98.2 F 65 18 BP BP BP Pulse Ox Pulse Ox Pulse Ox 09/12/19 16:33 140/69 93 L 09/12/19 12:00 133/86 09/12/19 10:12 112/58 L 91 L 93 L 09/12/19 08:09 09/12/19 08:00 142/81 H 95 Weight Weight 440 lb 3.2 oz I&O: 09/11/19 09/12/19 09/13/19 06:59 06:59 06:59 Intake Total 364 1180 Output Total 2975 Balance 364 -1795 Result Diagrams: 09/12/19 03:42 09/12/19 03:42 EKG Reviewed by me: Yes (Tele SR) Hospitalist ROS - Review of Systems Respiratory: reports: SOB with excertion. denies: cough, dry, shortness of breath, hemoptysis, pleuritic pain, sputum, wheezing, other Cardiovascular: denies: chest pain, palpitations, orthopnea, paroxysmal noc. dyspnea, edema, light headedness, other Gastrointestinal: denies: nausea, vomiting, abdominal pain, diarrhea, constipation, melena, hematochezia, other - Medication Medications: Active Medications Generic Name Dose Route Start Last Admin Trade Name Freq PRN Reason Stop Dose Admin Hydrocodone Bitart/Acetaminophen 1 tab 09/11/19 01:33 09/12/19 14:39 [place] 5/325 PO 1 tab Q4H PRN Administration Moderate Pain (4-6) Amlodipine Besylate 10 mg 09/11/19 21:00 09/11/19 21:01 Norvasc PO 10 mg HS ROCIO Administration Aspirin 81 mg 09/12/19 09:00 09/12/19 08:09 Ecotrin PO 81 mg DAILY ROCIO Administration Azelastine HCl 0 ml 09/11/19 09:00 09/12/19 08:11 Azelastine NS 1 spr BID ROCIO Administration Enoxaparin Sodium 40 mg 09/11/19 09:00 09/12/19 08:10 Lovenox SC 40 mg 0900 ROCIO Administration Famotidine 20 mg 09/11/19 09:00 09/12/19 08:10 Pepcid PO 20 mg BID ROCIO Administration Furosemide 40 mg 09/11/19 06:00 09/12/19 14:31 Lasix SLOW IVP 40 mg 0600,1400 ROCIO Administration Lisinopril/HCTZ 1 tab 09/11/19 09:00 09/12/19 08:09 Prinizide 20-12.5 PO 1 tab DAILY ROCIO Administration Meloxicam 15 mg 09/11/19 09:00 09/12/19 08:10 Mobic PO 15 mg DAILY ROCIO Administration Metoprolol Succinate 100 mg 09/11/19 09:00 09/12/19 08:10 Toprol Xl PO 100 mg DAILY ROCIO Administration Potassium Chloride 20 meq 09/11/19 08:00 09/12/19 08:10 K-Dur PO 20 meq QAM-WM ROCIO Administration Tramadol HCl 50 mg 09/11/19 01:49 09/11/19 14:49 Ultram PO 50 mg Q6H PRN Administration Severe Pain (7-10) - Exam General Appearance: NAD Heart: no gallops, no rubs Respiratory: no rales, rhonchi Gastrointestinal: soft, normal bowel sounds Extremities: 2+ LE edema Hosp A/P - Plan DVT proph w/lovenox, DVT proph w/SCDs Acute on chronic diastolic HF exacerbation RICHARD Morbid obesity BMI 60.8 HTN Type 2 PR (POA) - resolved DJD PLAN: Cont IV Lasix 40 mg IV BID with fluid restriction Cont CPAP/BiPAP HS Pulmonary input appreciated Await home O2/CPAP setup Doppler - negative for DVT AM labs Consult Cardiac Rehab
[2019-09-12] MEDS: Amlodipine 10 MG TAB PO SCH (20:39)
[2019-09-13 05:11] LABS: Anion Gap 12 mmol/L (10-20); BUN (Urea Nitrogen) 19 mg/dL (8.4-25.7); Calc. Creatinine Clearance 327 mL/min (70-130); Calcium 9.2 mg/dL (7.8-10.44); Carbon Dioxide 35 mmol/L (22-29); Chloride 95 mmol/L (98-107); Estimated GFR-MDRD Greater than 90; Glucose 83 mg/dL (70-105); Magnesium 2.1 mg/dL (1.6-2.6); Potassium 4.1 mmol/L (3.5-5.1); Sodium 138 mmol/L (136-145)
[2019-09-13] MEDS: Furosemide 40 MG/4 ML VIAL SLOW IVP SCH (06:44)
[2019-09-13] MEDS: Famotidine 20 MG TAB PO SCH ×2 (09:20→20:19)
[2019-09-13] MEDS: Enoxaparin Sodium 40 MG/0.4 ML SYRINGE SC SCH (09:20)
[2019-09-13] MEDS: Lisinopril/Hydrochlorothiazide 20 mg/12.5 mg Tablet PO SCH (09:20)
[2019-09-13] MEDS: Meloxicam 15 MG TAB PO SCH (09:21)
[2019-09-13] MEDS: Aspirin 81 mg Enteric Coated Tablet PO SCH (09:21)
[2019-09-13] MEDS: Azelastine 137 MCG/Spray 30 ML NS SCH ×2 (09:21→20:19)
[2019-09-13] MEDS: Potassium Chloride 20 MEQ TAB PO SCH (09:21)
--- NOTE | 2019-09-13 13:10 | PRG ---
DATE OF SERVICE: 09/13/2019 SUBJECTIVE: The patient did better on reduced IPAP pressure last night. Apparently, his apparatus has not been set up at home yet, because the company was closed. OBJECTIVE: VITAL SIGNS: Temperature 97.9, pulse 63, respirations 24, O2 saturation 94% on 2 L. HEENT: Unremarkable. NECK: No adenopathy or JVD. LUNGS: Clear anteriorly. CARDIAC: S1, S2. Regular. ABDOMEN: Soft. EXTREMITIES: No edema except on the legs. LABORATORY DATA: Sodium 138, potassium 4.1, chloride 95, CO2 of 35, BUN 19, creatinine 0.7, and glucose 83. ASSESSMENT: Severe obstructive sleep apnea. PLAN: 1. Continue BiPAP at night. 2. We would recommend consideration of changing the diuretics to acetazolamide as I am worried about contraction alkalosis in this patient. Job ID: [id number]
--- NOTE | 2019-09-13 14:05 | PDOC.HOSPP ---
- Subjective Encounter Date: 09/13/19 Encounter Time: 09:15 Subjective: Patient seen and examined for Resp failure. SOB improving. No new complaints. No overnight events - Objective Vital Signs & Weight: Vital Signs (12 hours) Temp Pulse Pulse Pulse Resp BP BP 09/13/19 11:36 97.9 F 63 24 H 09/13/19 09:58 68 75 149/68 H 165/90 H 09/13/19 09:21 09/13/19 08:10 98.3 F 60 20 09/13/19 03:13 98.3 F 51 L 18 BP BP Pulse Ox Pulse Ox Pulse Ox 09/13/19 11:36 140/73 94 L 09/13/19 09:58 95 93 L 09/13/19 09:21 95 09/13/19 08:10 139/81 95 09/13/19 03:13 97/53 L 95 Weight Weight 437 lb 1.6 oz I&O: 09/12/19 09/13/19 09/14/19 06:59 06:59 06:59 Intake Total 1180 1350 Output Total 2975 2150 Balance -1795 -800 Result Diagrams: 09/12/19 03:42 09/13/19 04:29 EKG Reviewed by me: Yes (Tele SR) Hospitalist ROS - Review of Systems Respiratory: reports: SOB with excertion. denies: cough, dry, shortness of breath, hemoptysis, pleuritic pain, sputum, wheezing, other Cardiovascular: denies: chest pain, palpitations, orthopnea, paroxysmal noc. dyspnea, edema, light headedness, other - Medication Medications: Active Medications Generic Name Dose Route Start Last Admin Trade Name Freq PRN Reason Stop Dose Admin Hydrocodone Bitart/Acetaminophen 1 tab 09/11/19 01:33 09/12/19 14:39 [place] 5/325 PO 1 tab Q4H PRN Administration Moderate Pain (4-6) Amlodipine Besylate 10 mg 09/11/19 21:00 09/12/19 20:39 Norvasc PO 10 mg HS ROCIO Administration Aspirin 81 mg 09/12/19 09:00 09/13/19 09:21 Ecotrin PO 81 mg DAILY ROCIO Administration Azelastine HCl 0 ml 09/11/19 09:00 09/13/19 09:21 Azelastine NS 2 spr BID ROCIO Administration Enoxaparin Sodium 40 mg 09/11/19 09:00 09/13/19 09:20 Lovenox SC Not Given 09 ROCIO Famotidine 20 mg 09/11/19 09:00 09/13/19 09:20 Pepcid PO 20 mg BID ROCIO Administration Lisinopril/HCTZ 1 tab 09/11/19 09:00 09/13/19 09:20 Prinizide 20-12.5 PO 1 tab DAILY ROCIO Administration Meloxicam 15 mg 09/11/19 09:00 09/13/19 09:21 Mobic PO 15 mg DAILY ROCIO Administration Metoprolol Succinate 100 mg 09/11/19 09:00 09/13/19 09:20 Toprol Xl PO 100 mg DAILY ROCIO Administration Potassium Chloride 20 meq 09/11/19 08:00 09/13/19 09:21 K-Dur PO 20 meq QAM-WM ROCIO Administration Tramadol HCl 50 mg 09/11/19 01:49 09/11/19 14:49 Ultram PO 50 mg Q6H PRN Administration Severe Pain (7-10) - Exam Neck: supple, no JVD Heart: no gallops, no rubs Respiratory: no wheezes, no rales Gastrointestinal: non-tender, non-distended, normal bowel sounds Extremities: 1+ LE edema Hosp A/P - Plan DVT proph w/lovenox, DVT proph w/SCDs Acute on chronic diastolic HF exacerbation Severe RICHARD Morbid obesity BMI 60.8 HTN Type 2 [place] (POA) - resolved DJD PLAN: Cont fluid restriction Lasix dced Cont Lisinopril/HCTZ On Acetazolamide Cont CPAP HS Await home O2/CPAP setup BMP in AM
[2019-09-13] MEDS: Amlodipine 10 MG TAB PO SCH (20:19)
[2019-09-13] MEDS: AcetaZOLAMIDE 250 MG TAB PO SCH (20:19)
[2019-09-14 06:54] LABS: Anion Gap 13 mmol/L (10-20); BUN (Urea Nitrogen) 18 mg/dL (8.4-25.7); Calc. Creatinine Clearance 279 mL/min (70-130); Calcium 9.2 mg/dL (7.8-10.44); Carbon Dioxide 31 mmol/L (22-29); Chloride 98 mmol/L (98-107); Estimated GFR-MDRD Greater than 90; Glucose 97 mg/dL (70-105); Potassium 4.8 mmol/L (3.5-5.1); Sodium 137 mmol/L (136-145)
[2019-09-14] MEDS: Famotidine 20 MG TAB PO SCH ×2 (08:43→21:10)
[2019-09-14] MEDS: Aspirin 81 mg Enteric Coated Tablet PO SCH (08:43)
[2019-09-14] MEDS: AcetaZOLAMIDE 250 MG TAB PO SCH ×2 (08:44→21:11)
[2019-09-14] MEDS: Potassium Chloride 20 MEQ TAB PO SCH (08:44)
[2019-09-14] MEDS: Enoxaparin Sodium 40 MG/0.4 ML SYRINGE SC SCH (08:44)
[2019-09-14] MEDS: Meloxicam 15 MG TAB PO SCH (08:44)
[2019-09-14] MEDS: Lisinopril/Hydrochlorothiazide 20 mg/12.5 mg Tablet PO SCH (08:44)
[2019-09-14] MEDS: Azelastine 137 MCG/Spray 30 ML NS SCH ×2 (08:45→21:11)
--- NOTE | 2019-09-14 12:04 | PRG ---
DATE OF SERVICE: 09/12/2019 I did find the BiPAP orders. He is set up on . I could see why he is having trouble tolerating this, so we will cut him back to 08/09 until we can review the sleep study. This may be partially treating, which will be better than nothing at this time. Job ID: [id number]
--- NOTE | 2019-09-14 17:54 | PRG ---
DATE OF SERVICE: 09/14/2019 SUBJECTIVE: Mr. Elliott said he continues to improve. OBJECTIVE: VITAL SIGNS: Have been stable. LUNGS: Clear. HEART: Regular rhythm. ABDOMEN: Soft. IMPRESSION: 1. Severe obstructive sleep apnea. 2. Life-threatening obesity. PLAN: Continue with BiPAP. Probably have to set him up with lower pressures than what he had during his sleep study ultimately. He can be monitored as an outpatient once he set up with this. Job ID: [id number]
[2019-09-14] MEDS: Amlodipine 10 MG TAB PO SCH (21:10)
--- NOTE | 2019-09-14 21:30 | PDOC.HOSPP ---
- Subjective Encounter Date: 09/14/19 Encounter Time: 09:30 Subjective: Patient seen and examined for resp failure. SOB improving. No fever or chills. No new complaints. No overnight events - Objective Vital Signs & Weight: Vital Signs (12 hours) Temp Pulse Pulse Pulse Resp BP BP 09/14/19 21:10 90 09/14/19 21:08 98.4 F 90 20 09/14/19 15:30 97.8 F 63 18 09/14/19 11:46 97.8 F 58 L 8 L 09/14/19 10:11 61 56 L 138/75 130/74 BP BP Pulse Ox Pulse Ox Pulse Ox Pulse Ox 09/14/19 21:10 09/14/19 21:08 145/80 H 95 09/14/19 15:30 134/76 94 L 09/14/19 11:46 142/82 H 93 L 09/14/19 10:11 82 L 92 L 94 L Weight Weight 437 lb 4.8 oz I&O: 09/13/19 09/14/19 09/15/19 06:59 06:59 06:59 Intake Total 1350 1200 1200 Output Total 2150 2525 750 Balance -800 -1325 450 Result Diagrams: 09/12/19 03:42 09/15/19 04:59 EKG Reviewed by me: Yes (Tele SR) Hospitalist ROS - Review of Systems Respiratory: reports: SOB with excertion. denies: cough, dry, shortness of breath, hemoptysis, pleuritic pain, sputum, wheezing, other Cardiovascular: denies: chest pain, palpitations, orthopnea, paroxysmal noc. dyspnea, edema, light headedness, other - Medication Medications: Active Medications Generic Name Dose Route Start Last Admin Trade Name Freq PRN Reason Stop Dose Admin Hydrocodone Bitart/Acetaminophen 1 tab 09/11/19 01:33 09/12/19 14:39 [place] 5/325 PO 1 tab Q4H PRN Administration Moderate Pain (4-6) Acetazolamide 250 mg 09/13/19 21:00 09/14/19 21:11 Diamox PO 250 mg BID ROCIO Administration Amlodipine Besylate 10 mg 09/11/19 21:00 09/14/19 21:10 Norvasc PO 10 mg HS ROCIO Administration Aspirin 81 mg 09/12/19 09:00 09/14/19 08:43 Ecotrin PO 81 mg DAILY ROCIO Administration Azelastine HCl 0 ml 09/11/19 09:00 09/14/19 21:11 Azelastine NS Not Given BID [facility] Enoxaparin Sodium 40 mg 09/11/19 09:00 09/14/19 08:44 Lovenox SC Not Given 0900 [facility] Famotidine 20 mg 09/11/19 09:00 09/14/19 21:10 Pepcid PO 20 mg BID ROCIO Administration Lisinopril/HCTZ 1 tab 09/11/19 09:00 09/14/19 08:44 Prinizide 20-12.5 PO 1 tab DAILY ROCIO Administration Meloxicam 15 mg 09/11/19 09:00 09/14/19 08:44 Mobic PO 15 mg DAILY ROCIO Administration Metoprolol Succinate 100 mg 09/11/19 09:00 09/14/19 08:44 Toprol Xl PO 100 mg DAILY ROCIO Administration Potassium Chloride 20 meq 09/11/19 08:00 09/14/19 08:44 K-Dur PO 20 meq QAM-WM ROCIO Administration Tramadol HCl 50 mg 09/11/19 01:49 09/11/19 14:49 Ultram PO 50 mg Q6H PRN Administration Severe Pain (7-10) - Exam General Appearance: NAD Heart: RRR, no gallops, no rubs Respiratory: no wheezes, no rales, rhonchi Gastrointestinal: soft, non-tender, normal bowel sounds Extremities: 1+ LE edema Hosp A/P - Plan DVT proph w/lovenox, DVT proph w/SCDs Acute on chronic diastolic HF exacerbation Severe RICHARD Morbid obesity BMI 60.[address] (POA) - resolved DJD PLAN: Cont fluid restriction with Acetazolamnide Cont Lisinopril/HCTZ Cont CPAP HS Await home O2/CPAP setup Stable for dc
[2019-09-15 05:48] LABS: Anion Gap 13 mmol/L (10-20); BUN (Urea Nitrogen) 18 mg/dL (8.4-25.7); Calc. Creatinine Clearance 304 mL/min (70-130); Calcium 8.6 mg/dL (7.8-10.44); Carbon Dioxide 20 mmol/L (22-29); Chloride 105 mmol/L (98-107); Estimated GFR-MDRD Greater than 90; Glucose 85 mg/dL (70-105); Potassium 4.9 mmol/L (3.5-5.1); Sodium 133 mmol/L (136-145)
[2019-09-15] MEDS: Enoxaparin Sodium 40 MG/0.4 ML SYRINGE SC SCH (07:45)
[2019-09-15] MEDS: Meloxicam 15 MG TAB PO SCH (07:47)
[2019-09-15] MEDS: Famotidine 20 MG TAB PO SCH ×2 (07:48→21:22)
[2019-09-15] MEDS: Potassium Chloride 20 MEQ TAB PO SCH (07:48)
[2019-09-15] MEDS: AcetaZOLAMIDE 250 MG TAB PO SCH (07:49)
[2019-09-15] MEDS: Aspirin 81 mg Enteric Coated Tablet PO SCH (07:49)
[2019-09-15] MEDS: Azelastine 137 MCG/Spray 30 ML NS SCH ×2 (07:50→21:25)
[2019-09-15] MEDS: Lisinopril/Hydrochlorothiazide 20 mg/12.5 mg Tablet PO SCH (08:35)
--- NOTE | 2019-09-15 11:51 | PRG ---
DATE OF SERVICE: 09/15/2019 SUBJECTIVE: The patient is doing well. Still waiting for to be set up at home. OBJECTIVE: VITAL SIGNS: Temperature 98.7, pulse 57, respirations 20, O2 saturation 93% on 2 L, and blood pressure 132/66. HEENT: Unremarkable. NECK: No adenopathy or JVD. LUNGS: Clear anteriorly. CARDIAC: S1, S2. Regular. ABDOMEN: Soft. EXTREMITIES: Edematous. LABORATORY DATA: Sodium 133, potassium 4.9, chloride 105, CO2 of 20, BUN 18, creatinine 0.7, and glucose 85. ASSESSMENT: 1. Obstructive sleep apnea/obesity hypoventilation syndrome. 2. Resolved metabolic alkalosis. PLAN: 1. Stop the acetazolamide and resume the Lasix. 2. Awaiting to be set up at home. He can leave once his BiPAP and oxygen are set up. Job ID: [id number]
--- NOTE | 2019-09-15 13:14 | PDOC.HOSPP ---
- Subjective Encounter Date: 09/15/19 Encounter Time: 10:30 Subjective: Patient seen and examined for CHF. No new complaints. No overnight events - Objective Vital Signs & Weight: Vital Signs (12 hours) Temp Pulse Pulse Pulse Resp BP BP 09/15/19 11:16 98.7 F 57 L 20 09/15/19 10:21 51 L 50 L 136/75 120/66 09/15/19 07:41 97.4 F L 57 L 20 09/15/19 03:30 97.8 F 56 L 14 BP BP Pulse Ox Pulse Ox Pulse Ox Pulse Ox 09/15/19 11:16 132/66 93 L 09/15/19 10:21 82 L 95 92 L 09/15/19 07:41 130/74 96 09/15/19 03:30 103/55 L 96 Weight Weight 436 lb 14.4 oz I&O: 09/14/19 09/15/19 09/16/19 06:59 06:59 06:59 Intake Total 1200 1440 Output Total 4180 3150 300 Balance -1325 -1710 -300 Result Diagrams: 09/12/19 03:42 09/15/19 04:59 EKG Reviewed by me: Yes (Tele SB) Hospitalist ROS - Review of Systems Respiratory: denies: cough, dry, shortness of breath, hemoptysis, SOB with excertion, pleuritic pain, sputum, wheezing, other Cardiovascular: denies: chest pain, palpitations, orthopnea, paroxysmal noc. dyspnea, edema, light headedness, other - Medication Medications: Active Medications Generic Name Dose Route Start Last Admin Trade Name Freq PRN Reason Stop Dose Admin Hydrocodone Bitart/Acetaminophen 1 tab 09/11/19 01:33 09/12/19 14:39 [place] 5/325 PO 1 tab Q4H PRN Administration Moderate Pain (4-6) Amlodipine Besylate 10 mg 09/11/19 21:00 09/14/19 21:10 Norvasc PO 10 mg HS ROCIO Administration Aspirin 81 mg 09/12/19 09:00 09/15/19 07:49 Ecotrin PO 81 mg DAILY ROCIO Administration Azelastine HCl 0 ml 09/11/19 09:00 09/15/19 07:50 Azelastine NS 1 spr BID ROCIO Administration Enoxaparin Sodium 40 mg 09/11/19 09:00 09/15/19 07:45 Lovenox SC Not Given 0900 ROCIO Famotidine 20 mg 09/11/19 09:00 09/15/19 07:48 Pepcid PO 20 mg BID ROCIO Administration Lisinopril/HCTZ 1 tab 09/11/19 09:00 09/15/19 08:35 Prinizide 20-12.5 PO 1 tab DAILY ROCIO Administration Meloxicam 15 mg 09/11/19 09:00 09/15/19 07:47 Mobic PO 15 mg DAILY ROCIO Administration Metoprolol Succinate 100 mg 09/11/19 09:00 09/15/19 08:35 Toprol Xl PO 100 mg DAILY ROCIO Administration Potassium Chloride 20 meq 09/11/19 08:00 09/15/19 07:48 K-Dur PO 20 meq QAM-WM ROCIO Administration Tramadol HCl 50 mg 09/11/19 01:49 09/11/19 14:49 Ultram PO 50 mg Q6H PRN Administration Severe Pain (7-10) - Exam General Appearance: NAD Heart: RRR, no gallops Respiratory: CTAB, no rales Gastrointestinal: soft, non-tender, normal bowel sounds Extremities: 1+ LE edema Hosp A/P - Plan DVT proph w/SCDs Acute on chronic diastolic HF exacerbation Severe RICHARD Morbid obesity BMI 60.8 HTN Type 2 [place] (POA) - resolved DJD PLAN: Cont Lisinopril/HCTZ Cont Lasix Acetazolamide dced Cont CPAP/O2 Await home O2/CPAP setup Stable for discharge
[2019-09-15] MEDS: Furosemide 40 MG TAB PO SCH (14:11)
[2019-09-15] MEDS: Amlodipine 10 MG TAB PO SCH (21:22)
[2019-09-16] MEDS: Azelastine 137 MCG/Spray 30 ML NS SCH ×3 (00:05→20:55)
[2019-09-16] MEDS: Potassium Chloride 20 MEQ TAB PO SCH (08:37)
[2019-09-16] MEDS: Enoxaparin Sodium 40 MG/0.4 ML SYRINGE SC SCH (08:37)
[2019-09-16] MEDS: Furosemide 40 MG TAB PO SCH ×2 (08:37→13:51)
[2019-09-16] MEDS: Famotidine 20 MG TAB PO SCH ×2 (08:37→20:55)
[2019-09-16] MEDS: Aspirin 81 mg Enteric Coated Tablet PO SCH (08:37)
[2019-09-16] MEDS: Meloxicam 15 MG TAB PO SCH (08:50)
[2019-09-16 09:36] LABS: Anion Gap 11 mmol/L (10-20); BUN (Urea Nitrogen) 17 mg/dL (8.4-25.7); Calc. Creatinine Clearance 296 mL/min (70-130); Calcium 9.3 mg/dL (7.8-10.44); Carbon Dioxide 29 mmol/L (22-29); Chloride 102 mmol/L (98-107); Estimated GFR-MDRD Greater than 90; Glucose 80 mg/dL (70-105); Potassium 4.2 mmol/L (3.5-5.1); Sodium 138 mmol/L (136-145)
[2019-09-16] MEDS: Lisinopril/Hydrochlorothiazide 20 mg/12.5 mg Tablet PO SCH (10:08)
--- NOTE | 2019-09-16 16:01 | PDOC.HOSPP ---
- Subjective Encounter Date: 09/16/19 Encounter Time: 15:59 Subjective: Mr. Elliott was seen today in follow-up of Obesity hypoventilation syndrome. He does not have any new complaints. - Objective Vital Signs & Weight: Vital Signs (12 hours) Temp Pulse Resp BP BP Pulse Ox 09/16/19 11:50 97.8 F 56 L 18 144/72 H 93 L 09/16/19 10:08 58 L 147/68 H 09/16/19 08:00 93 L 09/16/19 07:34 97.6 F 58 L 22 H 147/68 H 90 L 09/16/19 06:59 95 09/16/19 04:00 97.7 F 61 20 103/62 95 Weight Weight 425 lb 12.8 oz I&O: 09/15/19 09/16/19 09/17/19 06:59 06:59 06:59 Intake Total 1440 600 Output Total 3150 800 Balance -1710 -200 Result Diagrams: 09/12/19 03:42 09/16/19 08:34 Hospitalist ROS - Medication Medications: Active Medications Generic Name Dose Route Start Last Admin Trade Name Freq PRN Reason Stop Dose Admin Hydrocodone Bitart/Acetaminophen 1 tab 09/11/19 01:33 09/12/19 14:39 [place] 5/325 PO 1 tab Q4H PRN Administration Moderate Pain (4-6) Amlodipine Besylate 10 mg 09/11/19 21:00 09/15/19 21:22 Norvasc PO 10 mg HS ROCIO Administration Aspirin 81 mg 09/12/19 09:00 09/16/19 08:37 Ecotrin PO 81 mg DAILY ROCIO Administration Azelastine HCl 0 ml 09/11/19 09:00 09/16/19 08:42 Azelastine NS 1 spr BID ROCIO Administration Enoxaparin Sodium 40 mg 09/11/19 09:00 09/16/19 08:37 Lovenox SC Not Given 0900 ROCIO Famotidine 20 mg 09/11/19 09:00 09/16/19 08:37 Pepcid PO 20 mg BID ROCIO Administration Furosemide 40 mg 09/15/19 14:00 09/16/19 13:51 Lasix PO 40 mg 0900,1400 ROCIO Administration Lisinopril/HCTZ 1 tab 09/11/19 09:00 09/16/19 10:08 Prinizide 20-12.5 PO 1 tab DAILY ROCIO Administration Meloxicam 15 mg 09/11/19 09:00 09/16/19 08:50 Mobic PO 15 mg DAILY ROCIO Administration Metoprolol Succinate 100 mg 09/11/19 09:00 09/16/19 08:37 Toprol Xl PO 100 mg DAILY ROCIO Administration Potassium Chloride 20 meq 09/11/19 08:00 09/16/19 08:37 K-Dur PO 20 meq QAM-WM ROCIO Administration Tramadol HCl 50 mg 09/11/19 01:49 09/11/19 14:49 Ultram PO 50 mg Q6H PRN Administration Severe Pain (7-10) - Exam Eye: PERRL, anicteric sclera Heart: RRR, no murmur, no gallops, no rubs, normal peripheral pulses Respiratory: CTAB, no wheezes, no rales, no ronchi, normal chest expansion, no tachypnea, normal percussion Gastrointestinal: soft, non-tender, non-distended, normal bowel sounds, no palpable masses, no hepatomegaly, no splenomegaly Extremities: no cyanosis, no clubbing, no edema Hosp A/P (1) Acute respiratory failure with hypoxemia Code(s): J96.01 - ACUTE RESPIRATORY FAILURE WITH HYPOXIA Status: Acute (2) Obesity hypoventilation syndrome Code(s): E66.2 - MORBID (SEVERE) OBESITY WITH ALVEOLAR HYPOVENTILATION Status : Acute (3) Morbid obesity with BMI of 60.0-69.9, adult Code(s): E66.01 - MORBID (SEVERE) OBESITY DUE TO EXCESS CALORIES; Z68.44 - BODY MASS INDEX (BMI) 60.0-69.9, ADULT Status: Acute (4) HTN (hypertension) Code(s): I10 - ESSENTIAL (PRIMARY) HYPERTENSION Status: Acute Qualifiers: Hypertension type: essential hypertension Qualified Code(s): I10 - Essential (primary) hypertension - Plan * Acute respiratory failure with hypoxemia- continue supplemental oxygen, and BiPAP at night * Awaiting outpatient arrangements for Autop[employer], and home oxygen * HTN- blood pressure is stable
[2019-09-16] MEDS: Amlodipine 10 MG TAB PO SCH (20:55)
[2019-09-17 07:33] LABS: Anion Gap 11 mmol/L (10-20); BUN (Urea Nitrogen) 18 mg/dL (8.4-25.7); Calc. Creatinine Clearance 329 mL/min (70-130); Carbon Dioxide 28 mmol/L (22-29); Chloride 102 mmol/L (98-107); Estimated GFR-MDRD Greater than 90; Glucose 75 mg/dL (70-105); Sodium 137 mmol/L (136-145)
[2019-09-17] MEDS: Potassium Chloride 20 MEQ TAB PO SCH (08:12)
[2019-09-17] MEDS: Aspirin 81 mg Enteric Coated Tablet PO SCH (08:12)
[2019-09-17] MEDS: Furosemide 40 MG TAB PO SCH ×2 (08:13→14:13)
[2019-09-17] MEDS: Azelastine 137 MCG/Spray 30 ML NS SCH ×2 (08:13→20:54)
[2019-09-17] MEDS: Famotidine 20 MG TAB PO SCH ×2 (08:14→20:53)
[2019-09-17] MEDS: Meloxicam 15 MG TAB PO SCH (08:14)
[2019-09-17] MEDS: Enoxaparin Sodium 40 MG/0.4 ML SYRINGE SC SCH (08:17)
[2019-09-17] MEDS: Lisinopril/Hydrochlorothiazide 20 mg/12.5 mg Tablet PO SCH (09:10)
[2019-09-17] MEDS ORDERED: Calamine/Zinc Oxide 177 ML LOTION TP PRN (09:42)
[2019-09-17] MEDS: HYDROcodone/Acetaminophen 5/325 mg Tablet PO PRN (10:39)
--- NOTE | 2019-09-17 13:17 | PRG ---
DATE OF SERVICE: 09/17/2019 SUBJECTIVE: The patient is awaiting BiPAP set up at home. He is doing fine. He has no acute complaints. OBJECTIVE: VITAL SIGNS: Temperature 98.3, pulse 60, respirations 20, O2 saturation 92% on 3 L. HEENT: Unremarkable. NECK: No adenopathy or JVD. LUNGS: Clear anteriorly. CARDIAC: S1 and S2. Regular. ABDOMEN: Soft. EXTREMITIES: No edema. ASSESSMENT: Obstructive sleep apnea/obesity hypoventilation syndrome. PLAN: Can go home once his BiPAP and home oxygen are set up. His orders have already been signed for that. Job ID: [id number]
--- NOTE | 2019-09-17 17:24 | PDOC.HOSPP ---
- Subjective Encounter Date: 09/17/19 Encounter Time: 17:22 Subjective: Mr. Elliott was seen today in follow-up of respiratory failure due to sleep apnea. He does not have any complaints today. - Objective Vital Signs & Weight: Vital Signs (12 hours) Temp Pulse Resp BP Pulse Ox 09/17/19 09:10 60 09/17/19 08:00 98.3 F 60 20 114/69 92 L Weight Weight 424 lb 3.2 oz I&O: 09/16/19 09/17/19 09/18/19 06:59 06:59 06:59 Intake Total 600 1440 Output Total 800 1025 Balance -200 415 Result Diagrams: 09/12/19 03:42 09/17/19 06:21 Hospitalist ROS - Medication Medications: Active Medications Generic Name Dose Route Start Last Admin Trade Name Freq PRN Reason Stop Dose Admin Hydrocodone Bitart/Acetaminophen 1 tab 09/11/19 01:33 09/17/19 10:39 [place] 5/325 PO 1 tab Q4H PRN Administration Moderate Pain (4-6) Amlodipine Besylate 10 mg 09/11/19 21:00 09/16/19 20:55 Norvasc PO 10 mg HS ROCIO Administration Aspirin 81 mg 09/12/19 09:00 09/17/19 08:12 Ecotrin PO 81 mg DAILY ROCIO Administration Azelastine HCl 0 ml 09/11/19 09:00 09/17/19 08:13 Azelastine NS 1 spr BID ROCIO Administration Enoxaparin Sodium 40 mg 09/11/19 09:00 09/17/19 08:17 Lovenox SC Not Given 0900 ROCIO Famotidine 20 mg 09/11/19 09:00 09/17/19 08:14 Pepcid PO 20 mg BID ROCIO Administration Furosemide 40 mg 09/15/19 14:00 09/17/19 14:13 Lasix PO 40 mg 0900,1400 ROCIO Administration Lisinopril/HCTZ 1 tab 09/11/19 09:00 09/17/19 09:10 Prinizide 20-12.5 PO 1 tab DAILY ROCIO Administration Meloxicam 15 mg 09/11/19 09:00 09/17/19 08:14 Mobic PO 15 mg DAILY ROCIO Administration Metoprolol Succinate 100 mg 09/11/19 09:00 09/17/19 08:14 Toprol Xl PO 100 mg DAILY ROCIO Administration Potassium Chloride 20 meq 09/11/19 08:00 09/17/19 08:12 K-Dur PO 20 meq QAM-WM ROCIO Administration Tramadol HCl 50 mg 09/11/19 01:49 09/11/19 14:49 Ultram PO 50 mg Q6H PRN Administration Severe Pain (7-10) - Exam Eye: PERRL Heart: RRR, no murmur, no gallops, no rubs, normal peripheral pulses Respiratory: CTAB, no wheezes, no rales, no ronchi, normal chest expansion, no tachypnea, normal percussion Gastrointestinal: soft, non-tender, non-distended, normal bowel sounds, no palpable masses, no hepatomegaly Extremities: no cyanosis, 2+ LE edema (massive lower extremity edema, and chronic venous stasis changes) Hosp A/P (1) Acute respiratory failure with hypoxemia Code(s): J96.01 - ACUTE RESPIRATORY FAILURE WITH HYPOXIA Status: Acute (2) Obesity hypoventilation syndrome Code(s): E66.2 - MORBID (SEVERE) OBESITY WITH ALVEOLAR HYPOVENTILATION Status : Acute (3) Morbid obesity with BMI of 60.0-69.9, adult Code(s): E66.01 - MORBID (SEVERE) OBESITY DUE TO EXCESS CALORIES; Z68.44 - BODY MASS INDEX (BMI) 60.0-69.9, ADULT Status: Acute (4) HTN (hypertension) Code(s): I10 - ESSENTIAL (PRIMARY) HYPERTENSION Status: Acute Qualifiers: Hypertension type: essential hypertension Qualified Code(s): I10 - Essential (primary) hypertension - Plan * Acute respiratory failure with hypoxemia- continue supplemental oxygen, and BiPAP at night * Patient is clinically stable * HTN-blood pressure stable * Home once outpatient oxygen and AutoPap arranged.
[2019-09-17] MEDS: Amlodipine 10 MG TAB PO SCH (20:53)
[2019-09-18] MEDS: Enoxaparin Sodium 40 MG/0.4 ML SYRINGE SC SCH (07:53)
[2019-09-18] MEDS: Meloxicam 15 MG TAB PO SCH (08:37)
[2019-09-18] MEDS: Famotidine 20 MG TAB PO SCH ×2 (08:38→20:41)
[2019-09-18] MEDS: Potassium Chloride 20 MEQ TAB PO SCH (08:39)
[2019-09-18] MEDS: Furosemide 40 MG TAB PO SCH ×2 (08:39→15:46)
[2019-09-18] MEDS: Aspirin 81 mg Enteric Coated Tablet PO SCH (08:39)
[2019-09-18] MEDS: Lisinopril/Hydrochlorothiazide 20 mg/12.5 mg Tablet PO SCH (08:39)
[2019-09-18] MEDS: Azelastine 137 MCG/Spray 30 ML NS SCH ×2 (08:42→20:41)
--- NOTE | 2019-09-18 14:41 | PDOC.HOSPP ---
- Subjective Encounter Date: 09/18/19 Encounter Time: 14:39 Subjective: Mr. Elliott was seen today in follow-up of respiratory failure due to sleep apnea. He does not have any newcomplaints. He says he feels fine. - Objective Vital Signs & Weight: Vital Signs (12 hours) Temp Pulse Resp BP Pulse Ox 09/18/19 08:39 56 L 09/18/19 07:35 97.7 F 56 L 18 129/76 94 L Weight Weight 419 lb 11.2 oz I&O: 09/17/19 09/18/19 09/19/19 06:59 06:59 06:59 Intake Total 1440 1650 Output Total 1025 550 Balance 415 1100 Result Diagrams: 09/12/19 03:42 09/17/19 06:21 Hospitalist ROS - Medication Medications: Active Medications Generic Name Dose Route Start Last Admin Trade Name Freq PRN Reason Stop Dose Admin Hydrocodone Bitart/Acetaminophen 1 tab 09/11/19 01:33 09/17/19 10:39 [place] 5/325 PO 1 tab Q4H PRN Administration Moderate Pain (4-6) Amlodipine Besylate 10 mg 09/11/19 21:00 09/17/19 20:53 Norvasc PO 10 mg HS ROCIO Administration Aspirin 81 mg 09/12/19 09:00 09/18/19 08:39 Ecotrin PO 81 mg DAILY ROCIO Administration Azelastine HCl 0 ml 09/11/19 09:00 09/18/19 08:42 Azelastine NS 1 spr BID ROCIO Administration Enoxaparin Sodium 40 mg 09/11/19 09:00 09/18/19 07:53 Lovenox SC Not Given 0900 ROCIO Famotidine 20 mg 09/11/19 09:00 09/18/19 08:38 Pepcid PO 20 mg BID ROCIO Administration Furosemide 40 mg 09/15/19 14:00 09/18/19 08:39 Lasix PO 40 mg 0900,1400 ROCIO Administration Lisinopril/HCTZ 1 tab 09/11/19 09:00 09/18/19 08:39 Prinizide 20-12.5 PO 1 tab DAILY ROCIO Administration Meloxicam 15 mg 09/11/19 09:00 09/18/19 08:37 Mobic PO 15 mg DAILY ROCIO Administration Metoprolol Succinate 100 mg 09/11/19 09:00 09/18/19 08:38 Toprol Xl PO 100 mg DAILY ROCIO Administration Potassium Chloride 20 meq 09/11/19 08:00 09/18/19 08:39 K-Dur PO 20 meq QAM-WM ROCIO Administration Tramadol HCl 50 mg 09/11/19 01:49 09/11/19 14:49 Ultram PO 50 mg Q6H PRN Administration Severe Pain (7-10) - Exam Eye: PERRL Heart: RRR, no murmur, no gallops, no rubs, normal peripheral pulses Respiratory: CTAB, no wheezes, no rales, no ronchi, normal chest expansion, no tachypnea, normal percussion Gastrointestinal: soft, non-tender, non-distended, normal bowel sounds, no palpable masses, no hepatomegaly Extremities: 2+ LE edema (massive bilateral lower extremity edema) Hosp A/P (1) Acute respiratory failure with hypoxemia Code(s): J96.01 - ACUTE RESPIRATORY FAILURE WITH HYPOXIA Status: Acute (2) Obesity hypoventilation syndrome Code(s): E66.2 - MORBID (SEVERE) OBESITY WITH ALVEOLAR HYPOVENTILATION Status : Acute (3) Morbid obesity with BMI of 60.0-69.9, adult Code(s): E66.01 - MORBID (SEVERE) OBESITY DUE TO EXCESS CALORIES; Z68.44 - BODY MASS INDEX (BMI) 60.0-69.9, ADULT Status: Acute (4) HTN (hypertension) Code(s): I10 - ESSENTIAL (PRIMARY) HYPERTENSION Status: Acute Qualifiers: Hypertension type: essential hypertension Qualified Code(s): I10 - Essential (primary) hypertension - Plan * Acute respiratory failure with hypoxemia- continue BiPAP. * HTN-blood pressure stable * Home once outpatient oxygen and AutoPap arranged.
[2019-09-18] MEDS: Amlodipine 10 MG TAB PO SCH (20:41)
[2019-09-19] MEDS: Furosemide 40 MG TAB PO SCH ×2 (08:54→15:39)
[2019-09-19] MEDS: Aspirin 81 mg Enteric Coated Tablet PO SCH (08:54)
[2019-09-19] MEDS: Potassium Chloride 20 MEQ TAB PO SCH (08:54)
[2019-09-19] MEDS: Meloxicam 15 MG TAB PO SCH (08:54)
[2019-09-19] MEDS: Famotidine 20 MG TAB PO SCH ×2 (08:55→20:50)
[2019-09-19] MEDS: HYDROcodone/Acetaminophen 5/325 mg Tablet PO PRN (08:57)
[2019-09-19] MEDS: Lisinopril/Hydrochlorothiazide 20 mg/12.5 mg Tablet PO SCH (08:58)
[2019-09-19] MEDS: Azelastine 137 MCG/Spray 30 ML NS SCH ×2 (08:59→20:51)
[2019-09-19] MEDS: Enoxaparin Sodium 40 MG/0.4 ML SYRINGE SC SCH (08:59)
--- NOTE | 2019-09-19 16:12 | PDOC.HOSPP ---
- Subjective Encounter Date: 09/19/19 Encounter Time: 16:10 Subjective: Mr. Elliott was seen today in follow-up of respiratory failure. He does not have any new complaints. - Objective Vital Signs & Weight: Vital Signs (12 hours) Temp Pulse Resp BP Pulse Ox 09/19/19 07:24 97.9 F 56 L 22 H 147/73 H 93 L Weight Weight 419 lb 11.2 oz I&O: 09/18/19 09/19/19 09/20/19 06:59 06:59 06:59 Intake Total 1650 920 Output Total 550 500 Balance 1100 420 Result Diagrams: 09/12/19 03:42 09/17/19 06:21 Hospitalist ROS - Medication Medications: Active Medications Generic Name Dose Route Start Last Admin Trade Name Freq PRN Reason Stop Dose Admin Hydrocodone Bitart/Acetaminophen 1 tab 09/11/19 01:33 09/19/19 08:57 [place] 5/325 PO 1 tab Q4H PRN Administration Moderate Pain (4-6) Amlodipine Besylate 10 mg 09/11/19 21:00 09/18/19 20:41 Norvasc PO 10 mg HS ROCIO Administration Aspirin 81 mg 09/12/19 09:00 09/19/19 08:54 Ecotrin PO 81 mg DAILY ROCIO Administration Azelastine HCl 0 ml 09/11/19 09:00 09/19/19 08:59 Azelastine NS Not Given BID ROCIO Enoxaparin Sodium 40 mg 09/11/19 09:00 09/19/19 08:59 Lovenox SC Not Given 0900 ROCIO Famotidine 20 mg 09/11/19 09:00 09/19/19 08:55 Pepcid PO 20 mg BID ROCIO Administration Furosemide 40 mg 09/15/19 14:00 09/19/19 15:39 Lasix PO 40 mg 0900,1400 ROCIO Administration Lisinopril/HCTZ 1 tab 09/11/19 09:00 09/19/19 08:58 Prinizide 20-12.5 PO 1 tab DAILY ROCIO Administration Meloxicam 15 mg 09/11/19 09:00 09/19/19 08:54 Mobic PO 15 mg DAILY ROCIO Administration Metoprolol Succinate 100 mg 09/11/19 09:00 09/19/19 08:54 Toprol Xl PO 100 mg DAILY ROCIO Administration Potassium Chloride 20 meq 09/11/19 08:00 09/19/19 08:54 K-Dur PO 20 meq QAM-WM ROCIO Administration Tramadol HCl 50 mg 09/11/19 01:49 09/11/19 14:49 Ultram PO 50 mg Q6H PRN Administration Severe Pain (7-10) - Exam Eye: PERRL Heart: RRR, no murmur, no gallops, no rubs, normal peripheral pulses Respiratory: CTAB, no wheezes, no rales, no ronchi, normal chest expansion, no tachypnea, normal percussion Gastrointestinal: soft, non-tender, non-distended, normal bowel sounds, no palpable masses, no hepatomegaly, no splenomegaly Extremities: no cyanosis, 2+ LE edema Hosp A/P (1) Acute respiratory failure with hypoxemia Code(s): J96.01 - ACUTE RESPIRATORY FAILURE WITH HYPOXIA Status: Acute (2) Obesity hypoventilation syndrome Code(s): E66.2 - MORBID (SEVERE) OBESITY WITH ALVEOLAR HYPOVENTILATION Status : Acute (3) Morbid obesity with BMI of 60.0-69.9, adult Code(s): E66.01 - MORBID (SEVERE) OBESITY DUE TO EXCESS CALORIES; Z68.44 - BODY MASS INDEX (BMI) 60.0-69.9, ADULT Status: Acute (4) HTN (hypertension) Code(s): I10 - ESSENTIAL (PRIMARY) HYPERTENSION Status: Acute Qualifiers: Hypertension type: essential hypertension Qualified Code(s): I10 - Essential (primary) hypertension - Plan * Acute respiratory failure with hypoxemia- continue nocturnal BiPAP. * HTN- blood pressure is controlled * Home once outpatient oxygen and AutoPap arranged.
[2019-09-19] MEDS: Amlodipine 10 MG TAB PO SCH (20:50)
[2019-09-20] MEDS: Meloxicam 15 MG TAB PO SCH (08:36)
[2019-09-20] MEDS: Famotidine 20 MG TAB PO SCH ×2 (08:36→20:11)
[2019-09-20] MEDS: Potassium Chloride 20 MEQ TAB PO SCH (08:36)
[2019-09-20] MEDS: Azelastine 137 MCG/Spray 30 ML NS SCH ×2 (08:37→20:11)
[2019-09-20] MEDS: Furosemide 40 MG TAB PO SCH ×2 (08:37→13:26)
[2019-09-20] MEDS: Aspirin 81 mg Enteric Coated Tablet PO SCH (08:37)
[2019-09-20] MEDS: Lisinopril/Hydrochlorothiazide 20 mg/12.5 mg Tablet PO SCH (08:37)
[2019-09-20] MEDS: Enoxaparin Sodium 40 MG/0.4 ML SYRINGE SC SCH (08:38)
[2019-09-20] MEDS: HYDROcodone/Acetaminophen 5/325 mg Tablet PO PRN (08:41)
--- NOTE | 2019-09-20 13:55 | PDOC.HOSPP ---
- Subjective Encounter Date: 09/20/19 Encounter Time: 13:53 Subjective: Mr. Elliott was seen today in follow-up of acute respiratory failure. He does not have any complaints. - Objective Vital Signs & Weight: Vital Signs (12 hours) Temp Pulse Resp BP BP Pulse Ox 09/20/19 08:37 60 147/90 H 09/20/19 07:50 98.4 F 60 20 147/90 H 91 L 09/20/19 02:14 54 L Weight Weight 417 lb 8 oz I&O: 09/19/19 09/20/19 09/21/19 06:59 06:59 06:59 Intake Total 920 1640 480 Output Total 500 Balance 420 1640 480 Result Diagrams: 09/12/19 03:42 09/17/19 06:21 Hospitalist ROS - Medication Medications: Active Medications Generic Name Dose Route Start Last Admin Trade Name Freq PRN Reason Stop Dose Admin Hydrocodone Bitart/Acetaminophen 1 tab 09/11/19 01:33 09/20/19 08:41 [place] 5/325 PO 1 tab Q4H PRN Administration Moderate Pain (4-6) Amlodipine Besylate 10 mg 09/11/19 21:00 09/19/19 20:50 Norvasc PO 10 mg HS ROCIO Administration Aspirin 81 mg 09/12/19 09:00 09/20/19 08:37 Ecotrin PO 81 mg DAILY ROCIO Administration Azelastine HCl 0 ml 09/11/19 09:00 09/20/19 08:37 Azelastine NS 1 spr BID ROCIO Administration Enoxaparin Sodium 40 mg 09/11/19 09:00 09/20/19 08:38 Lovenox SC Not Given 0900 ROCIO Famotidine 20 mg 09/11/19 09:00 09/20/19 08:36 Pepcid PO 20 mg BID ROCIO Administration Furosemide 40 mg 09/15/19 14:00 09/20/19 13:26 Lasix PO 40 mg 0900,1400 ROCIO Administration Lisinopril/HCTZ 1 tab 09/11/19 09:00 09/20/19 08:37 Prinizide 20-12.5 PO 1 tab DAILY ROCIO Administration Meloxicam 15 mg 09/11/19 09:00 09/20/19 08:36 Mobic PO 15 mg DAILY ROCIO Administration Metoprolol Succinate 100 mg 09/11/19 09:00 09/20/19 08:37 Toprol Xl PO 100 mg DAILY ROCIO Administration Potassium Chloride 20 meq 09/11/19 08:00 09/20/19 08:36 K-Dur PO 20 meq QAM-WM ROCIO Administration Tramadol HCl 50 mg 09/11/19 01:49 09/11/19 14:49 Ultram PO 50 mg Q6H PRN Administration Severe Pain (7-10) - Exam Eye: PERRL Heart: RRR, no murmur, no gallops, no rubs, normal peripheral pulses Respiratory: CTAB, no wheezes, no rales, no ronchi, normal chest expansion, no tachypnea, normal percussion Gastrointestinal: soft, non-tender, non-distended, normal bowel sounds, no palpable masses, no hepatomegaly Extremities: no cyanosis, 2+ LE edema Hosp A/P (1) Acute respiratory failure with hypoxemia Code(s): J96.01 - ACUTE RESPIRATORY FAILURE WITH HYPOXIA Status: Acute (2) Obesity hypoventilation syndrome Code(s): E66.2 - MORBID (SEVERE) OBESITY WITH ALVEOLAR HYPOVENTILATION Status : Acute (3) Morbid obesity with BMI of 60.0-69.9, adult Code(s): E66.01 - MORBID (SEVERE) OBESITY DUE TO EXCESS CALORIES; Z68.44 - BODY MASS INDEX (BMI) 60.0-69.9, ADULT Status: Acute (4) HTN (hypertension) Code(s): I10 - ESSENTIAL (PRIMARY) HYPERTENSION Status: Acute Qualifiers: Hypertension type: essential hypertension Qualified Code(s): I10 - Essential (primary) hypertension - Plan * Acute respiratory failure with hypoxemia- clinically stable * Continue nocturnal BiPAP. * HTN- blood pressure is controlled * Awaiting arrangements for home oxygen and BiPAP
[2019-09-20] MEDS: Amlodipine 10 MG TAB PO SCH (20:09)
[2019-09-20] MEDS: Hydrocortisone 1% Cream 30 GM TUBE TOP SCH (20:11)
[2019-09-21] MEDS: Meloxicam 15 MG TAB PO SCH (08:13)
[2019-09-21] MEDS: Famotidine 20 MG TAB PO SCH ×2 (08:13→20:55)
[2019-09-21] MEDS: Hydrocortisone 1% Cream 30 GM TUBE TOP SCH ×2 (08:14→20:56)
[2019-09-21] MEDS: Aspirin 81 mg Enteric Coated Tablet PO SCH (08:14)
[2019-09-21] MEDS: Furosemide 40 MG TAB PO SCH ×2 (08:14→14:06)
[2019-09-21] MEDS: Azelastine 137 MCG/Spray 30 ML NS SCH ×2 (08:14→20:56)
[2019-09-21] MEDS: Enoxaparin Sodium 40 MG/0.4 ML SYRINGE SC SCH (08:15)
[2019-09-21] MEDS: Acetaminophen 325 MG TAB PO PRN (08:18)
[2019-09-21] MEDS: Lisinopril/Hydrochlorothiazide 20 mg/12.5 mg Tablet PO SCH (10:11)
[2019-09-21] MEDS: Potassium Chloride 20 MEQ TAB PO SCH ×2 (10:12→11:06)
--- NOTE | 2019-09-21 14:42 | PDOC.HOSPP ---
- Subjective Encounter Date: 09/21/19 Encounter Time: 14:40 Subjective: Mr. Elliott was seen today in follow-up of respiratory failure. He says he is breathing better, not complaints. - Objective Vital Signs & Weight: Vital Signs (12 hours) Temp Pulse Resp BP BP Pulse Ox 09/21/19 10:11 57 L 139/82 09/21/19 08:00 97.3 F L 57 L 18 139/82 96 Weight Weight 418 lb 4.8 oz I&O: 09/20/19 09/21/19 09/22/19 06:59 06:59 06:59 Intake Total 1640 1460 240 Balance 1640 1460 240 Result Diagrams: 09/12/19 03:42 09/17/19 06:21 Hospitalist ROS - Medication Medications: Active Medications Generic Name Dose Route Start Last Admin Trade Name Freq PRN Reason Stop Dose Admin Acetaminophen 650 mg 09/11/19 01:33 09/21/19 08:18 Tylenol PO 650 mg Q4H PRN Administration Headache/Fever/Mild Pain (1-3) Amlodipine Besylate 10 mg 09/11/19 21:00 09/20/19 20:09 Norvasc PO 10 mg HS ROCIO Administration Aspirin 81 mg 09/12/19 09:00 09/21/19 08:14 Ecotrin PO 81 mg DAILY ROCIO Administration Azelastine HCl 0 ml 09/11/19 09:00 09/21/19 08:14 Azelastine NS 1 spr BID ROCIO Administration Enoxaparin Sodium 40 mg 09/11/19 09:00 09/21/19 08:15 Lovenox SC Not Given 0900 ROCIO Famotidine 20 mg 09/11/19 09:00 09/21/19 08:13 Pepcid PO 20 mg BID ROCIO Administration Furosemide 40 mg 09/15/19 14:00 09/21/19 14:06 Lasix PO 40 mg 0900,1400 ROCIO Administration Lisinopril/HCTZ 1 tab 09/11/19 09:00 09/21/19 10:11 Prinizide 20-12.5 PO 1 tab DAILY ROCIO Administration Hydrocortisone/Aloe 0 gm 09/20/19 21:00 09/21/19 08:14 Hydrocortisone 1% Cream TOP 1 applic BID ROCIO Administration Meloxicam 15 mg 09/11/19 09:00 09/21/19 08:13 Mobic PO 15 mg DAILY ROCIO Administration Metoprolol Succinate 100 mg 09/11/19 09:00 09/21/19 08:13 Toprol Xl PO 100 mg DAILY ROCIO Administration Potassium Chloride 20 meq 09/11/19 08:00 09/21/19 11:06 K-Dur PO 20 meq QAM-WM ROCIO Administration - Exam Eye: PERRL Heart: RRR, no murmur, no gallops, no rubs, normal peripheral pulses Respiratory: CTAB, no wheezes, no rales, no ronchi, normal chest expansion, no tachypnea Gastrointestinal: soft, non-tender, non-distended, normal bowel sounds, no palpable masses, no hepatomegaly Extremities: no cyanosis, 2+ LE edema (+ massive bilateral edema in both lower extremities, with chronic venous stasis changes) Hosp A/P (1) Acute respiratory failure with hypoxemia Code(s): J96.01 - ACUTE RESPIRATORY FAILURE WITH HYPOXIA Status: Acute (2) Obesity hypoventilation syndrome Code(s): E66.2 - MORBID (SEVERE) OBESITY WITH ALVEOLAR HYPOVENTILATION Status : Acute (3) Morbid obesity with BMI of 60.0-69.9, adult Code(s): E66.01 - MORBID (SEVERE) OBESITY DUE TO EXCESS CALORIES; Z68.44 - BODY MASS INDEX (BMI) 60.0-69.9, ADULT Status: Acute (4) HTN (hypertension) Code(s): I10 - ESSENTIAL (PRIMARY) HYPERTENSION Status: Acute Qualifiers: Hypertension type: essential hypertension Qualified Code(s): I10 - Essential (primary) hypertension - Plan * Acute respiratory failure with hypoxemia- clinically stable * Continue nocturnal BiPAP. * HTN- blood pressure is controlled * Awaiting insurance authorization for BiPAP
[2019-09-21] MEDS: Amlodipine 10 MG TAB PO SCH (20:55)
[2019-09-22] MEDS: Aspirin 81 mg Enteric Coated Tablet PO SCH (09:24)
[2019-09-22] MEDS: Furosemide 40 MG TAB PO SCH ×2 (09:24→14:30)
[2019-09-22] MEDS: Lisinopril/Hydrochlorothiazide 20 mg/12.5 mg Tablet PO SCH (09:25)
[2019-09-22] MEDS: Meloxicam 15 MG TAB PO SCH (09:25)
[2019-09-22] MEDS: Potassium Chloride 20 MEQ TAB PO SCH (09:25)
[2019-09-22] MEDS: Azelastine 137 MCG/Spray 30 ML NS SCH ×2 (09:26→21:01)
[2019-09-22] MEDS: Enoxaparin Sodium 40 MG/0.4 ML SYRINGE SC SCH (09:26)
[2019-09-22] MEDS: Hydrocortisone 1% Cream 30 GM TUBE TOP SCH ×2 (09:27→21:02)
[2019-09-22] MEDS: Famotidine 20 MG TAB PO SCH ×2 (09:27→21:01)
[2019-09-22] MEDS: Acetaminophen 325 MG TAB PO PRN (09:30)
[2019-09-22 10:42] VITALS: BMI 62.9
--- NOTE | 2019-09-22 16:50 | PDOC.HOSPP ---
- Subjective Encounter Date: 09/22/19 Encounter Time: 16:48 Subjective: Mr. Elliott was seen today in follow-up of severe obesity hypoventilation syndrome. He does not have any new complaints. - Objective Vital Signs & Weight: Vital Signs (12 hours) Temp Pulse Resp BP BP Pulse Ox 09/22/19 09:25 60 149/76 H 09/22/19 08:00 97.9 F 59 L 20 131/67 94 L Weight Admit Weight 442 lb 9.6 oz Weight 414 lb I&O: 09/21/19 09/22/19 09/23/19 06:59 06:59 06:59 Intake Total 1460 1460 Balance 1460 1460 Result Diagrams: 09/12/19 03:42 09/17/19 06:21 Hospitalist ROS - Medication Medications: Active Medications Generic Name Dose Route Start Last Admin Trade Name Freq PRN Reason Stop Dose Admin Acetaminophen 650 mg 09/11/19 01:33 09/22/19 09:30 Tylenol PO 650 mg Q4H PRN Administration Headache/Fever/Mild Pain (1-3) Amlodipine Besylate 10 mg 09/11/19 21:00 09/21/19 20:55 Norvasc PO 10 mg HS ROCIO Administration Aspirin 81 mg 09/12/19 09:00 09/22/19 09:24 Ecotrin PO 81 mg DAILY ROCIO Administration Azelastine HCl 0 ml 09/11/19 09:00 09/22/19 09:26 Azelastine NS 1 spr BID ROCIO Administration Enoxaparin Sodium 40 mg 09/11/19 09:00 09/22/19 09:26 Lovenox SC Not Given 0900 ROCIO Famotidine 20 mg 09/11/19 09:00 09/22/19 09:27 Pepcid PO Not Given BID ROCIO Furosemide 40 mg 09/15/19 14:00 09/22/19 14:30 Lasix PO 40 mg 0900,1400 ROCIO Administration Lisinopril/HCTZ 1 tab 09/11/19 09:00 09/22/19 09:25 Prinizide 20-12.5 PO 1 tab DAILY ROCIO Administration Hydrocortisone/Aloe 0 gm 09/20/19 21:00 09/22/19 09:27 Hydrocortisone 1% Cream TOP 1 applic BID ROCIO Administration Meloxicam 15 mg 09/11/19 09:00 09/22/19 09:25 Mobic PO 15 mg DAILY ROCIO Administration Metoprolol Succinate 100 mg 09/11/19 09:00 09/22/19 09:26 Toprol Xl PO 100 mg DAILY ROCIO Administration Potassium Chloride 20 meq 09/11/19 08:00 09/22/19 09:25 K-Dur PO 20 meq QAM-WM ROCIO Administration - Exam Eye: PERRL Heart: RRR, no murmur, no gallops, no rubs, normal peripheral pulses Respiratory: CTAB, no wheezes, no rales, no ronchi, normal chest expansion, no tachypnea, normal percussion Gastrointestinal: soft, non-tender, non-distended, normal bowel sounds, no palpable masses, no hepatomegaly Extremities: 2+ LE edema (+ venous stasis changes) Hosp A/P (1) Acute respiratory failure with hypoxemia Code(s): J96.01 - ACUTE RESPIRATORY FAILURE WITH HYPOXIA Status: Acute (2) Obesity hypoventilation syndrome Code(s): E66.2 - MORBID (SEVERE) OBESITY WITH ALVEOLAR HYPOVENTILATION Status : Acute (3) Morbid obesity with BMI of 60.0-69.9, adult Code(s): E66.01 - MORBID (SEVERE) OBESITY DUE TO EXCESS CALORIES; Z68.44 - BODY MASS INDEX (BMI) 60.0-69.9, ADULT Status: Acute (4) HTN (hypertension) Code(s): I10 - ESSENTIAL (PRIMARY) HYPERTENSION Status: Acute Qualifiers: Hypertension type: essential hypertension Qualified Code(s): I10 - Essential (primary) hypertension - Plan * Acute respiratory failure with hypoxemia- clinically stable * Continue nocturnal BiPAP. * HTN- blood pressure is controlled * Home Oxygen has been arranged * Awaiting insurance authorization for BiPAP * Once BiPAP arranged he can be discharge home
[2019-09-22] MEDS: Amlodipine 10 MG TAB PO SCH (21:01)
[2019-09-23] MEDS: Aspirin 81 mg Enteric Coated Tablet PO SCH (08:32)
[2019-09-23] MEDS: Potassium Chloride 20 MEQ TAB PO SCH (08:33)
[2019-09-23] MEDS: Furosemide 40 MG TAB PO SCH ×2 (08:33→14:20)
[2019-09-23] MEDS: Lisinopril/Hydrochlorothiazide 20 mg/12.5 mg Tablet PO SCH (08:33)
[2019-09-23] MEDS: Enoxaparin Sodium 40 MG/0.4 ML SYRINGE SC SCH (08:34)
[2019-09-23] MEDS: Famotidine 20 MG TAB PO SCH ×2 (08:34→20:26)
[2019-09-23] MEDS: Azelastine 137 MCG/Spray 30 ML NS SCH ×2 (08:35→20:26)
[2019-09-23] MEDS: Hydrocortisone 1% Cream 30 GM TUBE TOP SCH ×2 (08:36→20:27)
[2019-09-23] MEDS: Acetaminophen 325 MG TAB PO PRN (08:39)
--- NOTE | 2019-09-23 10:34 | PDOC.HOSPP ---
- Subjective Encounter Date: 09/23/19 Encounter Time: 09:00 Subjective: Patient seen and examined. No new complaints. No overnight events - Objective Vital Signs & Weight: Vital Signs (12 hours) Temp Pulse Resp BP BP Pulse Ox 09/23/19 08:33 53 L 123/74 09/23/19 07:48 97.9 F 53 L 123/74 94 L Weight Admit Weight 442 lb 9.6 oz Weight 414 lb 6.4 oz I&O: 09/22/19 09/23/19 09/24/19 06:59 06:59 06:59 Intake Total 1460 1410 Balance 1460 1410 Result Diagrams: 09/12/19 03:42 09/17/19 06:21 Hospitalist ROS - Review of Systems ENT: denies: ear pain, ear discharge, nose pain, nose discharge, nose congestion , mouth pain, mouth swelling, throat pain, throat swelling, other Respiratory: denies: cough, dry, shortness of breath, hemoptysis, SOB with excertion, pleuritic pain, sputum, wheezing, other Cardiovascular: denies: chest pain, palpitations, orthopnea, paroxysmal noc. dyspnea, edema, light headedness, other Gastrointestinal: denies: nausea, vomiting, abdominal pain, diarrhea, constipation, melena, hematochezia, other Genitourinary: denies: dysuria, frequency, incontinence, hematuria, retention, other Musculoskeletal: denies: neck pain, shoulder pain, arm pain, back pain, hand pain, leg pain, foot pain, other - Medication Medications: Active Medications Generic Name Dose Route Start Last Admin Trade Name Johnathanq PRN Reason Stop Dose Admin Acetaminophen 650 mg 09/11/19 01:33 09/23/19 08:39 Tylenol PO 650 mg Q4H PRN Administration Headache/Fever/Mild Pain (1-3) Amlodipine Besylate 10 mg 09/11/19 21:00 09/22/19 21:01 Norvasc PO 10 mg HS ROCIO Administration Aspirin 81 mg 09/12/19 09:00 09/23/19 08:32 Ecotrin PO 81 mg DAILY ROCIO Administration Azelastine HCl 0 ml 09/11/19 09:00 09/23/19 08:35 Azelastine NS 1 spr BID ROCIO Administration Enoxaparin Sodium 40 mg 09/11/19 09:00 09/23/19 08:34 Lovenox SC Not Given 0900 ROCIO Famotidine 20 mg 09/11/19 09:00 09/23/19 08:34 Pepcid PO 20 mg BID ROCIO Administration Furosemide 40 mg 09/15/19 14:00 09/23/19 08:33 Lasix PO 40 mg 0900,1400 ROCIO Administration Lisinopril/HCTZ 1 tab 09/11/19 09:00 09/23/19 08:33 Prinizide 20-12.5 PO 1 tab DAILY ROCIO Administration Hydrocortisone/Aloe 0 gm 09/20/19 21:00 09/23/19 08:36 Hydrocortisone 1% Cream TOP 1 applic BID ROCIO Administration Meloxicam 15 mg 09/11/19 09:00 09/22/19 09:25 Mobic PO 15 mg DAILY ROCIO Administration Metoprolol Succinate 100 mg 09/11/19 09:00 09/23/19 08:34 Toprol Xl PO 100 mg DAILY ROCIO Administration Potassium Chloride 20 meq 09/11/19 08:00 09/23/19 08:33 K-Dur PO 20 meq QAM-WM ROCIO Administration - Exam General Appearance: NAD, awake alert Eye: PERRL, anicteric sclera ENT: normocephalic atraumatic, no oropharyngeal lesions Neck: supple, symmetric, no JVD Heart: RRR, no murmur, no gallops, no rubs Respiratory: CTAB, no wheezes, no rales, no ronchi Gastrointestinal: soft, non-tender, non-distended, normal bowel sounds Gastrointestinal - other findings: morbid obesity Extremities: no cyanosis, no clubbing Skin: normal turgor, no lesions Neurological: cranial nerve grossly intact, no focal deficits Musculoskeletal: normal tone, normal strength Psychiatric: normal affect, normal behavior Hosp A/P (1) Acute respiratory failure with hypoxemia Code(s): J96.01 - ACUTE RESPIRATORY FAILURE WITH HYPOXIA Status: Acute (2) Morbid obesity with BMI of 60.0-69.9, adult Code(s): E66.01 - MORBID (SEVERE) OBESITY DUE TO EXCESS CALORIES; Z68.44 - BODY MASS INDEX (BMI) 60.0-69.9, ADULT Status: Acute (3) Obesity hypoventilation syndrome Code(s): E66.2 - MORBID (SEVERE) OBESITY WITH ALVEOLAR HYPOVENTILATION Status : Acute (4) Acute on chronic diastolic (congestive) heart failure Code(s): I50.33 - ACUTE ON CHRONIC DIASTOLIC (CONGESTIVE) HEART FAILURE Status : Acute (5) HTN (hypertension) Code(s): I10 - ESSENTIAL (PRIMARY) HYPERTENSION Status: Acute Qualifiers: Hypertension type: essential hypertension Qualified Code(s): I10 - Essential (primary) hypertension (6) PAT (paroxysmal atrial tachycardia) Status: Acute - Plan old records reviewed/req, psychosocial rehabilitation counselor, respiratory therapy overall stable, continue current treatment, waiting for cpap arrangement, medication reviewed and continue to provide symptomatic treatment and supportive care
[2019-09-23] MEDS: Meloxicam 15 MG TAB PO SCH (11:35)
--- NOTE | 2019-09-23 19:20 | PRG ---
DATE OF SERVICE: 09/23/2019 SERVICE: Pulmonary Medicine. INTERVAL HISTORY: The patient is doing really fine from respiratory standpoint. He has no complaints of chest discomfort, fevers, chills, nausea, vomiting, or cough. He is just annoyed that the prior authorization is taking such a long time. Otherwise, there has been no interval change to his condition. PHYSICAL EXAMINATION: VITAL SIGNS: Afebrile, pulse 53, blood pressure 123/74, respirations 20, saturation 94% on 3 L nasal cannula. GENERAL: The patient is awake and alert, in no apparent distress. LUNGS: Decent air entry with no prolonged expiratory phase or wheezing. HEART: Normal rate. Regular. ABDOMEN: Soft, nontender, and nondistended. Bowel sounds are positive. MUSCULOSKELETAL: No cyanosis or clubbing. There is 1+ pitting in the bilateral lower extremities with chronic stasis changes. LABORATORY DATA: WBC 8.3, hemoglobin 15.5, platelets 223,000. A pH 7.46, pCO2 of 46, pO2 of 71. Basic metabolic profile is essentially unremarkable, otherwise. ASSESSMENT: 1. Chronic hypercapnic respiratory failure. 2. Obesity hypoventilation syndrome. 3. Obstructive sleep apnea. DISCUSSION AND PLAN: The patient continues to do well from respiratory standpoint. He is breathing comfortably. Once his BiPAP is set up, he can be transitioned home. Pulmonary will only follow intermittently during this hospital stay. Please call with additional questions or concerns through time. Job ID: [id number]
[2019-09-23] MEDS: Amlodipine 10 MG TAB PO SCH (20:26)
[2019-09-24] MEDS ORDERED: Bisacodyl 10 MG SUPP PR PRN (06:59)
[2019-09-24] MEDS ORDERED: Loratadine 10 MG TAB PO PRN (06:59)
[2019-09-24] MEDS ORDERED: Cepastat Lozenges 1 LOZ PO PRN (06:59)
[2019-09-24] MEDS ORDERED: Senokot S 8.6-50 MG TAB PO PRN (06:59)
[2019-09-24] MEDS ORDERED: Calcium Carbonate 500 MG ChewTAB PO PRN (06:59)
[2019-09-24] MEDS ORDERED: Ondansetron ODT 4 MG TAB PO PRN (06:59)
[2019-09-24] MEDS ORDERED: Ondansetron PF 4 MG/2 ML Vial IVP PRN (06:59)
[2019-09-24] MEDS ORDERED: Diabetic Tussin 200 MG/10 ML UDCUP PO PRN (06:59)
[2019-09-24] MEDS ORDERED: Sodium Chloride 0.65% Nasal 44 ML BOT EA NARE PRN (06:59)
[2019-09-24] MEDS ORDERED: Artificial Tears 18 DROP/0.9 ML EA EYE PRN (06:59)
[2019-09-24] MEDS: Aspirin 81 mg Enteric Coated Tablet PO SCH (09:23)
[2019-09-24] MEDS: Potassium Chloride 20 MEQ TAB PO SCH (09:24)
[2019-09-24] MEDS: Furosemide 40 MG TAB PO SCH ×2 (09:24→14:43)
[2019-09-24] MEDS: Azelastine 137 MCG/Spray 30 ML NS SCH ×2 (09:24→20:28)
[2019-09-24] MEDS: Enoxaparin Sodium 40 MG/0.4 ML SYRINGE SC SCH (09:25)
[2019-09-24] MEDS: Lisinopril/Hydrochlorothiazide 20 mg/12.5 mg Tablet PO SCH (09:26)
[2019-09-24] MEDS: Hydrocortisone 1% Cream 30 GM TUBE TOP SCH ×2 (09:26→20:28)
[2019-09-24] MEDS: Meloxicam 15 MG TAB PO SCH (11:40)
[2019-09-24] MEDS: Famotidine 20 MG TAB PO SCH ×2 (11:40→20:24)
--- NOTE | 2019-09-24 11:50 | PDOC.HOSPP ---
- Subjective Encounter Date: 09/24/19 Encounter Time: 10:15 Subjective: Patient seen and examined. No new complaints. No overnight events - Objective Vital Signs & Weight: Vital Signs (12 hours) Temp Pulse Resp BP BP Pulse Ox 09/24/19 09:26 60 137/80 09/24/19 08:00 97.3 F L 55 L 20 137/80 95 Weight Admit Weight 442 lb 9.6 oz Weight 412 lb 3.2 oz I&O: 09/23/19 09/24/19 09/25/19 06:59 06:59 06:59 Intake Total 1410 1100 Balance 1410 1100 Result Diagrams: 09/12/19 03:42 09/17/19 06:21 Hospitalist ROS - Review of Systems ENT: denies: ear pain, ear discharge, nose pain, nose discharge, nose congestion , mouth pain, mouth swelling, throat pain, throat swelling, other Respiratory: denies: cough, dry, shortness of breath, hemoptysis, SOB with excertion, pleuritic pain, sputum, wheezing, other Cardiovascular: denies: chest pain, palpitations, orthopnea, paroxysmal noc. dyspnea, edema, light headedness, other Gastrointestinal: denies: nausea, vomiting, abdominal pain, diarrhea, constipation, melena, hematochezia, other Genitourinary: denies: dysuria, frequency, incontinence, hematuria, retention, other Musculoskeletal: denies: neck pain, shoulder pain, arm pain, back pain, hand pain, leg pain, foot pain, other - Medication Medications: Active Medications Generic Name Dose Route Start Last Admin Trade Name Freq PRN Reason Stop Dose Admin Acetaminophen 650 mg 09/11/19 01:33 09/23/19 08:39 Tylenol PO 650 mg Q4H PRN Administration Headache/Fever/Mild Pain (1-3) Amlodipine Besylate 10 mg 09/11/19 21:00 09/23/19 20:26 Norvasc PO 10 mg HS ROCIO Administration Aspirin 81 mg 09/12/19 09:00 09/24/19 09:23 Ecotrin PO 81 mg DAILY ROCIO Administration Azelastine HCl 0 ml 09/11/19 09:00 09/24/19 09:24 Azelastine NS 1 spr BID ROCIO Administration Enoxaparin Sodium 40 mg 09/11/19 09:00 09/24/19 09:25 Lovenox SC Not Given 0900 ROCIO Famotidine 20 mg 09/11/19 09:00 09/24/19 11:40 Pepcid PO 20 mg BID ROCIO Administration Furosemide 40 mg 09/15/19 14:00 09/24/19 09:24 Lasix PO 40 mg 0900,1400 ROCIO Administration Lisinopril/HCTZ 1 tab 09/11/19 09:00 09/24/19 09:26 Prinizide 20-12.5 PO 1 tab DAILY ROCIO Administration Hydrocortisone/Aloe 0 gm 09/20/19 21:00 09/24/19 09:26 Hydrocortisone 1% Cream TOP 1 applic BID ROCIO Administration Meloxicam 15 mg 09/11/19 09:00 09/24/19 11:40 Mobic PO 15 mg DAILY ROCIO Administration Metoprolol Succinate 100 mg 09/11/19 09:00 09/24/19 09:24 Toprol Xl PO 100 mg DAILY ROCIO Administration Potassium Chloride 20 meq 09/11/19 08:00 09/24/19 09:24 K-Dur PO 20 meq QAM-WM ROCIO Administration - Exam General Appearance: NAD, awake alert Eye: PERRL, anicteric sclera ENT: normocephalic atraumatic, no oropharyngeal lesions Neck: supple, symmetric, no JVD Heart: RRR, no murmur, no gallops, no rubs Respiratory: CTAB, no wheezes, no rales, no ronchi Gastrointestinal: soft, non-tender, non-distended, normal bowel sounds Gastrointestinal - other findings: morbid obesity Extremities: no cyanosis, no clubbing Skin: normal turgor, no lesions Neurological: no focal deficits Musculoskeletal: normal tone, normal strength Psychiatric: normal affect, normal behavior Hosp A/P (1) Acute respiratory failure with hypoxemia Code(s): J96.01 - ACUTE RESPIRATORY FAILURE WITH HYPOXIA Status: Acute (2) Morbid obesity with BMI of 60.0-69.9, adult Code(s): E66.01 - MORBID (SEVERE) OBESITY DUE TO EXCESS CALORIES; Z68.44 - BODY MASS INDEX (BMI) 60.0-69.9, ADULT Status: Acute (3) Obesity hypoventilation syndrome Code(s): E66.2 - MORBID (SEVERE) OBESITY WITH ALVEOLAR HYPOVENTILATION Status : Acute (4) Acute on chronic diastolic (congestive) heart failure Code(s): I50.33 - ACUTE ON CHRONIC DIASTOLIC (CONGESTIVE) HEART FAILURE Status : Acute (5) HTN (hypertension) Code(s): I10 - ESSENTIAL (PRIMARY) HYPERTENSION Status: Acute Qualifiers: Hypertension type: essential hypertension Qualified Code(s): I10 - Essential (primary) hypertension (6) PAT (paroxysmal atrial tachycardia) Status: Acute - 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
[2019-09-24] MEDS: Amlodipine 10 MG TAB PO SCH (20:27)
[2019-09-25 05:15] LABS: #Basophils 0.1 thou/uL (0.0-0.2); #Eosinphils 0.3 thou/uL (0.0-0.7); #Lymphocytes 1.8 thou/uL (1.20-3.40); #Monocytes 0.7 thou/uL (0.11-0.59); #Neutrophils 4.5 thou/uL (1.40-6.50); %Basophils 0.8 % (0.0-1.0); %Eosinophils 3.7 % (0.0-10.0); %Lymphocytes 24.9 % (21.0-51.0); %Monocytes 9.6 % (0.0-10.0); %Neutrophils 61.1 % (42.0-75.0); Hemoglobin 16.2 g/dL (14.0-18.0); Mean Corpuscular HGB CONC 31.3 g/dL (32.0-36.0); Mean Corpuscular Hemoglobin 28.5 pg (27.0-31.0); Mean Corpuscular Volume 90.8 fL (78.0-98.0); Platelet Count 201 thou/uL (130-400); Red Blood Cell (RBC) Count 5.71 mill/uL (4.70-6.10); White Blood Cell (WBC) Count 7.3 thou/uL (4.8-10.8)
[2019-09-25 06:23] LABS: Albumin 3.8 g/dL (3.5-5.0)
[2019-09-25 06:25] LABS: Calcium 9.2 mg/dL (7.8-10.44); Chloride 101 mmol/L (98-107); Potassium 4.3 mmol/L (3.5-5.1); Sodium 139 mmol/L (136-145)
[2019-09-25 06:26] LABS: Globulin 3.1 g/dL (2.4-3.5); Glucose 90 mg/dL (70-105); Protein, Total 6.9 g/dL (6.0-8.3)
[2019-09-25 06:27] LABS: Carbon Dioxide 35 mmol/L (22-29)
[2019-09-25 06:28] LABS: Anion Gap 7 mmol/L (10-20); Bilirubin, Total 0.5 mg/dL (0.2-1.2)
[2019-09-25 06:29] LABS: Alkaline Phosphatase 67 U/L (40-110); Calc. Creatinine Clearance 320 mL/min (70-130); Estimated GFR-MDRD Greater than 90
[2019-09-25 06:30] LABS: BUN (Urea Nitrogen) 15 mg/dL (8.4-25.7)
[2019-09-25 06:31] LABS: AST (SGOT) 29 U/L (5-34)
[2019-09-25 06:32] LABS: ALT (SGPT) 23 U/L (8-55)
[2019-09-25] MEDS: Potassium Chloride 20 MEQ TAB PO SCH (08:15)
[2019-09-25] MEDS: Furosemide 40 MG TAB PO SCH ×2 (08:15→14:57)
[2019-09-25] MEDS: Aspirin 81 mg Enteric Coated Tablet PO SCH (08:15)
[2019-09-25] MEDS: Enoxaparin Sodium 40 MG/0.4 ML SYRINGE SC SCH (08:16)
[2019-09-25] MEDS: Azelastine 137 MCG/Spray 30 ML NS SCH ×2 (08:16→21:03)
[2019-09-25] MEDS: Hydrocortisone 1% Cream 30 GM TUBE TOP SCH ×2 (08:17→21:04)
[2019-09-25] MEDS: Lisinopril/Hydrochlorothiazide 20 mg/12.5 mg Tablet PO SCH (08:17)
[2019-09-25] MEDS: Famotidine 20 MG TAB PO SCH ×2 (08:17→21:03)
[2019-09-25] MEDS: Meloxicam 15 MG TAB PO SCH (10:04)
[2019-09-25] MEDS: Acetaminophen 325 MG TAB PO PRN (10:04)
--- NOTE | 2019-09-25 10:56 | PDOC.HOSPP ---
- Subjective Encounter Date: 09/25/19 Encounter Time: 09:30 Subjective: Patient seen and examined. No new complaints. No overnight events - Objective Vital Signs & Weight: Vital Signs (12 hours) Temp Pulse Resp BP Pulse Ox 09/25/19 08:17 53 L 09/25/19 08:00 94 L 09/25/19 07:42 97.5 F L 53 L 18 130/69 94 L Weight Admit Weight 442 lb 9.6 oz Weight 412 lb 3.2 oz I&O: 09/24/19 09/25/19 09/26/19 06:59 06:59 06:59 Intake Total 1100 740 240 Balance 1100 740 240 Result Diagrams: 09/25/19 04:40 09/25/19 05:52 Hospitalist ROS - Review of Systems ENT: denies: ear pain, ear discharge, nose pain, nose discharge, nose congestion , mouth pain, mouth swelling, throat pain, throat swelling, other Respiratory: denies: cough, dry, shortness of breath, hemoptysis, SOB with excertion, pleuritic pain, sputum, wheezing, other Cardiovascular: denies: chest pain, palpitations, orthopnea, paroxysmal noc. dyspnea, edema, light headedness, other Gastrointestinal: denies: nausea, vomiting, abdominal pain, diarrhea, constipation, melena, hematochezia, other Genitourinary: denies: dysuria, frequency, incontinence, hematuria, retention, other Musculoskeletal: denies: neck pain, shoulder pain, arm pain, back pain, hand pain, leg pain, foot pain, other - Medication Medications: Active Medications Generic Name Dose Route Start Last Admin Trade Name Quique PRN Reason Stop Dose Admin Acetaminophen 650 mg 09/11/19 01:33 09/25/19 10:04 Tylenol PO 650 mg Q4H PRN Administration Headache/Fever/Mild Pain (1-3) Amlodipine Besylate 10 mg 09/11/19 21:00 09/24/19 20:27 Norvasc PO 10 mg HS ROCIO Administration Aspirin 81 mg 09/12/19 09:00 09/25/19 08:15 Ecotrin PO 81 mg DAILY ROCIO Administration Azelastine HCl 0 ml 09/11/19 09:00 09/25/19 08:16 Azelastine NS 1 spr BID ROCIO Administration Enoxaparin Sodium 40 mg 09/11/19 09:00 09/25/19 08:16 Lovenox SC Not Given 0900 ROCIO Famotidine 20 mg 09/11/19 09:00 09/25/19 08:17 Pepcid PO 20 mg BID ROCIO Administration Furosemide 40 mg 09/15/19 14:00 09/25/19 08:15 Lasix PO 40 mg 0900,1400 ROCIO Administration Lisinopril/HCTZ 1 tab 09/11/19 09:00 09/25/19 08:17 Prinizide 20-12.5 PO 1 tab DAILY ROCIO Administration Hydrocortisone/Aloe 0 gm 09/20/19 21:00 09/25/19 08:17 Hydrocortisone 1% Cream TOP 1 applic BID ROCIO Administration Meloxicam 15 mg 09/11/19 09:00 09/25/19 10:04 Mobic PO 15 mg DAILY ROCIO Administration Metoprolol Succinate 100 mg 09/11/19 09:00 09/25/19 08:15 Toprol Xl PO 100 mg DAILY ROCIO Administration Potassium Chloride 20 meq 09/11/19 08:00 09/25/19 08:15 K-Dur PO 20 meq QAM-WM ROCIO Administration - Exam General Appearance: NAD, awake alert Eye: PERRL, anicteric sclera ENT: normocephalic atraumatic, no oropharyngeal lesions Neck: supple, symmetric, no JVD, no thyromegaly Heart: RRR, no murmur, no gallops, no rubs Respiratory: CTAB, no wheezes, no rales, no ronchi Gastrointestinal: soft, non-tender, non-distended, normal bowel sounds Extremities: no cyanosis, no clubbing, no edema Skin: normal turgor, no lesions Neurological: no focal deficits Musculoskeletal: normal tone, normal strength Psychiatric: normal affect, normal behavior Hosp A/P (1) Acute respiratory failure with hypoxemia Code(s): J96.01 - ACUTE RESPIRATORY FAILURE WITH HYPOXIA Status: Acute (2) Morbid obesity with BMI of 60.0-69.9, adult Code(s): E66.01 - MORBID (SEVERE) OBESITY DUE TO EXCESS CALORIES; Z68.44 - BODY MASS INDEX (BMI) 60.0-69.9, ADULT Status: Acute (3) Obesity hypoventilation syndrome Code(s): E66.2 - MORBID (SEVERE) OBESITY WITH ALVEOLAR HYPOVENTILATION Status : Acute (4) Acute on chronic diastolic (congestive) heart failure Code(s): I50.33 - ACUTE ON CHRONIC DIASTOLIC (CONGESTIVE) HEART FAILURE Status : Acute (5) HTN (hypertension) Code(s): I10 - ESSENTIAL (PRIMARY) HYPERTENSION Status: Acute Qualifiers: Hypertension type: essential hypertension Qualified Code(s): I10 - Essential (primary) hypertension (6) PAT (paroxysmal atrial tachycardia) Status: Acute - Plan old records reviewed/req overall stable, continue current treatment, waiting for cpap arrangement, medication reviewed and continue to provide symptomatic treatment and supportive care 09/24/19, cpap/bipap arrangement is pending, otherwise stable with current treatment 09/25/19, await cpap arrangement, possible DC soon
[2019-09-25] MEDS: Amlodipine 10 MG TAB PO SCH (21:03)
[2019-09-26 08:01] VITALS: BP 135/73; TEMP 98
[2019-09-26] MEDS: Meloxicam 15 MG TAB PO SCH (08:45)
[2019-09-26] MEDS: Famotidine 20 MG TAB PO SCH (08:45)
[2019-09-26] MEDS: Furosemide 40 MG TAB PO SCH ×2 (08:45→14:49)
[2019-09-26] MEDS: Potassium Chloride 20 MEQ TAB PO SCH (08:45)
[2019-09-26] MEDS: Aspirin 81 mg Enteric Coated Tablet PO SCH (08:45)
[2019-09-26] MEDS: Hydrocortisone 1% Cream 30 GM TUBE TOP SCH (08:46)
[2019-09-26] MEDS: Enoxaparin Sodium 40 MG/0.4 ML SYRINGE SC SCH (08:46)
[2019-09-26] MEDS: Azelastine 137 MCG/Spray 30 ML NS SCH (08:46)
[2019-09-26] MEDS: Lisinopril/Hydrochlorothiazide 20 mg/12.5 mg Tablet PO SCH (08:48)
--- NOTE | 2019-09-27 10:26 | DIS ---
DATE OF ADMISSION: 09/10/2019 DATE OF DISCHARGE: 09/26/2019 DISCHARGE DIAGNOSES: 1. [id number] hypoxic respiratory failure. 2. Obesity hypoventilation syndrome, BiPAP dependent. 3. Morbid obesity. 4. Fyryl-je-pdmkgld diastolic heart failure. 5. Hypertension, stable. 6. Paroxysmal atrial tachycardia, resolved. CONSULTATIONS: Dr. Smith and Dr. Flanagan with Pulmonology Service. PERTINENT LABORATORY AND X-RAY FINDINGS: Troponin I ranged between 0.057 to 0.092. BNP 150. Portable chest x-ray dated 09/10/2019, showed cardiomegaly with mild vascular prominence. Bilateral lower extremity venous Doppler study dated 09/11/2019, showed no evidence for DVT. 2D transthoracic echocardiogram dated 09/24/2018, showed ejection fraction of 60%. HOSPITAL COURSE: The patient was initially admitted after presenting with progressive shortness of breath and hypoxia. The patient had recently undergone a sleep study with oxygen levels measured in the low 70% range. The patient's history is significant for morbid obesity with obstructive sleep apnea and life-threatening obesity, placed on BiPAP noninvasive mechanical ventilation. The patient also received IV Lasix after concern for mild pulmonary edema. The patient was evaluated by the Pulmonology Service with recommendations to continue diuretic therapy and continued with BiPAP noninvasive mechanical ventilation. The patient was slow to clinically improve with pulmonary supportive management; however, due to patient's sleep study results in addition to clinical presentation and admission, underwent approval process to receive a home BiPAP system. The patient's hospital course was delayed due to insurance approval for the device. However, the patient did remain clinically stable during the entire hospital course. The patient transitioned from IV Lasix to oral Lasix and resumed his home medication regimen without complication. I have examined the patient at the time of discharge and discussed followup instructions. The patient verbalized understanding and in agreement and ready for discharge on 09/26/2019. DISCHARGE MEDICATIONS: 1. Amlodipine 10 mg p.o. at bedtime. 2. Azelastine 137 mcg 1 spray in each naris daily. 3. Lasix 40 mg p.o. b.i.d. 4. Lisinopril/hydrochlorothiazide 20/12.5 mg 1 tablet p.o. daily. 5. Meloxicam 15 mg p.o. daily. 6. Metoprolol succinate 100 mg p.o. daily. 7. Potassium chloride 20 mEq p.o. daily. 8. Tramadol 50 mg p.o. q.6 hours p.r.n. 9. Enteric-coated aspirin 81 mg p.o. daily. FOLLOWUP: The patient may follow up with his primary care provider, Dr. Denise Giraldo on 09/29/2019 at 11:15 a.m. The patient may follow up with Dr. Teofilo Levine. CONDITION ON DISCHARGE: Fair. ACTIVITY: Ad-seth. DIET: Heart healthy. CODE STATUS: Full. DISPOSITION: Discharged home, 09/26/2019. TIME SPENT: Total time preparing and coordinating discharge, 31 minutes. Job ID: [id number]
== END 2019-09-26 16:40 | disposition home or self-care (01) | DRG 205 ==
LOC: ERS 13:28 → 2SW 23:29 → OBSVTOIN 23:29 → 2SW 09-11 00:51 → 2NO 09-11 23:43 → T4-B 09-15 23:47
PROVIDERS: ADMIT Internal Medicine; ATTEND Internal Medicine
PROC: 5A09357 Assistance with Respiratory Ventilation, Less than 24 Consecutive Hours, Continuous Positive Airway Pressure (ICD-10-PCS; principal; 2019-09-10)
DX: E66.2 Morbid (severe) obesity with alveolar hypoventilation (principal); I50.33 Acute on chronic diastolic (congestive) heart failure; J96.21 Acute and chronic respiratory failure with hypoxia; I21.A1 Myocardial infarction type 2; Z68.44 Body mass index [BMI] 60.0-69.9, adult; I47.1 Supraventricular tachycardia; E87.3 Alkalosis; I11.0 Hypertensive heart disease with heart failure; M19.90 Unspecified osteoarthritis, unspecified site; Z87.891 Personal history of nicotine dependence; Z79.899 Other long term (current) drug therapy; Z28.82 Immunization not carried out because of caregiver refusal
CPT/HCPCS: 36415; 36416; 71045; 80048; 80053; 82330; 82553; 82803; 82805; 83735; 83880; 84484; 85025; 93005; 93798; 93970; 94660; 94760; 95811; 96374; J0360; J1650; J1940

== ENCOUNTER 2022-04-22 14:38 | Outpatient (CLI) | payer OTHER | END 2022-04-22 14:39 | disposition home or self-care (01) | LOC: DTY/OP 14:38 | PROVIDERS: ATTEND Specialist | DX: E66.01 Morbid (severe) obesity due to excess calories (principal); Z68.44 Body mass index [BMI] 60.0-69.9, adult; D64.9 Anemia, unspecified; E53.8 Deficiency of other specified B group vitamins; Z79.899 Other long term (current) drug therapy | CPT/HCPCS: 36415; 80053; 80061; 82306; 82607; 82728; 82746; 83036; 83540; 83970; 84425; 85025; 97802 ==

== ENCOUNTER 2022-08-20 12:30 | Inpatient (IN) | payer OTHER ==
[2022-08-25 11:14] VITALS: BMI 60.7
[2022-08-26] MEDS ORDERED: Acetaminophen 500 MG TAB ONE (09:16)
[2022-08-26] MEDS ORDERED: Heparin 5,000 UNITS/ML VIAL ONE (09:16)
[2022-08-26] MEDS ORDERED: Scopolamine 1.5 mg/72 hour Patch ONE (09:16)
[2022-08-26] MEDS ORDERED: Bupivacaine/Epinephrine 0.25% 30 ML VIAL ONE ×2 (09:58→14:46)
[2022-08-26 10:46] LABS: SARS-CoV-2 NAA Rapid Test Not Detected (NotDetected)
[2022-08-26] MEDS ORDERED: fentaNYL PF 100 MCG/2 ML SYRINGE ONE ×3 (14:39→17:32)
[2022-08-26] MEDS ORDERED: Midazolam HCl 2 mg/2 ml Vial ONE (14:39)
[2022-08-26] MEDS ORDERED: Lidocaine 2% 6 ML SYR ONE (14:39)
[2022-08-26] MEDS ORDERED: Ondansetron PF 4 MG/2 ML Vial ONE (15:07)
[2022-08-26] MEDS ORDERED: PROPOFOL 200 MG/20 ML VIAL ONE (15:07)
[2022-08-26] MEDS ORDERED: Dexamethasone 20 MG/5 ML VIAL ONE (15:07)
[2022-08-26] MEDS ORDERED: Ketorolac Tromethamine 30 MG/ML VIAL ONE (15:07)
[2022-08-26] MEDS ORDERED: Rocuronium Bromide 10 MG/ML (10ML VIAL) ONE (15:07)
[2022-08-26] MEDS ORDERED: SUGAMMADEX SODIUM 200 MG/2 ML VIAL ONE (16:24)
[2022-08-26] MEDS ORDERED: Promethazine HCl 25 MG/ML VIAL IM PRN ×2 (16:46→17:09)
[2022-08-26] MEDS ORDERED: Ondansetron HCl/PF 4 MG/2 ML Vial IVP PRN (16:46)
[2022-08-26] MEDS ORDERED: Promethazine HCl 25 MG/ML VIAL IVPB PRN (16:46)
[2022-08-26] MEDS ORDERED: HYDROmorphone 2 MG/ML VIAL SLOW IVP PRN (16:46)
[2022-08-26] MEDS ORDERED: hydrALAZINE 20 MG/ML VIAL SLOW IVP PRN (17:09)
[2022-08-26] MEDS ORDERED: diphenhydrAMINE 50 MG/ML VIAL IVP PRN (17:09)
[2022-08-26] MEDS ORDERED: Ondansetron PF 4 MG/2 ML Vial IVP PRN (17:09)
[2022-08-26] MEDS ORDERED: Hydrocodone-Acetamin 15 ML UDCUP PO PRN (17:09)
[2022-08-26] MEDS ORDERED: Morphine 4 MG/ML VIAL SLOW IVP PRN (17:20)
[2022-08-26] MEDS: Ketorolac Tromethamine 30 MG/ML VIAL IVP SCH ×2 (19:33→23:34)
[2022-08-26] MEDS: Morphine 4 MG/ML VIAL SLOW IVP PRN ×2 (19:38→22:21)
[2022-08-26] MEDS: Sodium Chloride 0.45% 1,000 ML IV SCH (19:38)
[2022-08-26] MEDS ORDERED: Enoxaparin Sodium 40 MG/0.4 ML SYRINGE SC SCH (21:00)
[2022-08-26] MEDS ORDERED: Amlodipine 10 MG TAB PO SCH (21:00)
[2022-08-27] MEDS: Morphine 4 MG/ML VIAL SLOW IVP PRN ×3 (01:38→08:38)
[2022-08-27] MEDS: Sodium Chloride 0.45% 1,000 ML IV SCH ×2 (03:08→09:27)
[2022-08-27] MEDS: Ketorolac Tromethamine 30 MG/ML VIAL IVP SCH ×2 (05:12→11:33)
[2022-08-27 05:55] LABS: #Lymphocytes 0.8 thou/uL (1.20-3.40); #Monocytes 0.2 thou/uL (0.11-0.59); #Neutrophils 10.5 thou/uL (1.40-6.50); %Basophils 0.1 % (0.0-1.0); %Eosinophils 0.1 % (0.0-10.0); %Lymphocytes 7.1 % (21.0-51.0); %Monocytes 1.3 % (0.0-10.0); %Neutrophils 91.3 % (42.0-75.0); Hemoglobin 13.2 g/dL (14.0-18.0); Mean Corpuscular HGB CONC 33.9 g/dL (32.0-36.0); Mean Corpuscular Hemoglobin 30.8 pg (27.0-31.0); Mean Corpuscular Volume 90.8 fl (78.0-98.0); Mean Platelet Volume 8.7 fL (7.4-10.4); Platelet Count 263 10x3/uL (130-400); RBC Distribution Width 12.4 % (11.5-14.5); Red Blood Cell (RBC) Count 4.27 mill/uL (4.70-6.10); White Blood Cell (WBC) Count 11.5 10x3/uL (4.8-10.8)
[2022-08-27 06:14] LABS: Anion Gap 15 mmol/L (10-20); BUN (Urea Nitrogen) 40 mg/dL (8.4-25.7); Calc. Creatinine Clearance 137 mL/min (70-130); Calcium 9.2 mg/dL (7.8-10.44); Carbon Dioxide 23 mmol/L (22-29); Chloride 100 mmol/L (98-107); Estimated GFR 55; Glucose 135 mg/dL (70-105); Potassium 4.5 mmol/L (3.5-5.1); Sodium 133 mmol/L (136-145)
[2022-08-27 07:58] VITALS: TEMP 98.7
[2022-08-27] MEDS ORDERED: Aspirin 81 mg Enteric Coated Tablet PO SCH (09:00)
[2022-08-27] MEDS ORDERED: Pantoprazole 40 MG VIAL IVP SCH (09:00)
[2022-08-27 11:24] VITALS: BP 106/61
== END 2022-08-27 12:46 | disposition home or self-care (01) | DRG 621 ==
LOC: SURG A 08-26 08:33
PROVIDERS: ADMIT Specialist; ATTEND Specialist
PROC: 0DB64Z3 Excision of Stomach, Percutaneous Endoscopic Approach, Vertical (ICD-10-PCS; principal; 2022-08-26)
DX: E66.01 Morbid (severe) obesity due to excess calories (principal); Z68.44 Body mass index [BMI] 60.0-69.9, adult; Z20.822 Contact with and (suspected) exposure to COVID-19; I10 Essential (primary) hypertension; Z88.1 Allergy status to other antibiotic agents; Z79.899 Other long term (current) drug therapy; I83.10 Varicose veins of unspecified lower extremity with inflammation; Z82.49 Family history of ischemic heart disease and other diseases of the circulatory system
CPT/HCPCS: 36415; 80048; 85025; 88307; A4649; C9113; J1100; J1644; J1650; J1885; J2250; J2270; J2405; J2704; U0002

== ENCOUNTER 2022-08-20 12:44 | Outpatient (CLI) | payer OTHER ==
[2022-08-20 16:03] LABS: #Basophils 0.1 10x3/uL (0.0-0.2); #Eosinphils 0.2 10x3/uL (0.0-0.5); #Monocytes 0.9 10x3/uL (0.0-1.1); #Neutrophils 6.5 10x3/uL (1.5-8.4); %Basophils 0.8 % (0.0-2.0); %Eosinophils 1.7 % (0.0-6.0); %Lymphocytes 17.7 % (18.0-47.0); %Monocytes 9.7 % (0.0-10.0); %Neutrophils 69.8 % (40.0-75.0); Hemoglobin 13.7 g/dL (13.5-17.5); Mean Corpuscular HGB CONC 34.1 g/dL (32.0-36.0); Mean Corpuscular Hemoglobin 29.7 pg (27.0-33.0); Mean Corpuscular Volume 87.2 fl (81.2-95.1); Platelet Count 293 10x3/uL (150-450); Red Blood Cell (RBC) Count 4.61 10x6/uL (4.32-5.72); White Blood Cell (WBC) Count 9.3 10x3/uL (3.5-10.5)
[2022-08-20 16:53] LABS: Anion Gap 17 mmol/L (10-20); BUN (Urea Nitrogen) 29 mg/dL (8.4-25.7); Calc. Creatinine Clearance 0 mL/min (70-130); Calcium 9.5 mg/dL (7.8-10.44); Carbon Dioxide 23 mmol/L (22-29); Chloride 102 mmol/L (98-107); Estimated GFR 69; Glucose 89 mg/dL (70-105); Potassium 4.4 mmol/L (3.5-5.1); Sodium 138 mmol/L (136-145)
[2022-08-20 20:13] LABS: Hemoglobin A1c 5.3 % (4.0-6.0)
== END 2022-08-20 12:45 | disposition home or self-care (01) ==
LOC: LABBT 12:44
PROVIDERS: ATTEND Specialist
DX: Z01.812 Encounter for preprocedural laboratory examination (principal); E66.01 Morbid (severe) obesity due to excess calories; G47.33 Obstructive sleep apnea (adult) (pediatric); I87.2 Venous insufficiency (chronic) (peripheral); R06.89 Other abnormalities of breathing
CPT/HCPCS: 80048; 83036; 85025